=== PATIENT | male | born 1980 | race Caucasian/White ===

== ENCOUNTER 2019-12-18 17:33 | Emergency (ER) | payer MEDICAID, SELFPAY ==
[2019-12-18 18:00] VITALS: BP 163/94; PULSE 93; RESP 20; TEMP 37.1; O2SAT 98; BMI 32.1
--- NOTE | 2019-12-18 18:23 | HMH.EDUTC ---
[facility] [place] Clinical Impression: Poison melissa dermatitis Disposition: Home, Self-Care Condition on Discharge: Good Instructions: DI for Poison Melissa Allergy, Poison Melissa, Poison [place], Poison [place], Poisonous Plants: Melissa, [place], and [place]: Beware the Oils, Summertime Rashes: Poison Melissa, [place], and [place], Prednisone Additional Instructions: Cool compresses may help with itching and swelling Over the counter Benadryl may help with itching Over the counter calamine lotion on the area may help to dry up the lesions Start your steriod dose pack tomorrow as you was given SoluMedrol shot in the [facility] today Return if needed Straight to ER if any life threatening symptoms Prescriptions: methylPREDNISolone [Medrol 4mg tab] 4 mg PO DIRECTED #21 tab Prescription Printed Referrals: [facility] [Primary Care Provider] - As needed Time of Disposition: 18:41 Medical Decision Making - Jose M Inquiry Pt receiving controlled substance: No Jose M was queried for this patient: No Vital Signs: 12/18/19 18:00 Temperature 98.8 F Temperature Source Oral Pulse Rate [Left] 93 H Respiratory Rate 20 Blood Pressure [Right Arm] 163/94 H Blood Pressure Mean [Right Arm] 117 Blood Pressure Source [Right Arm] Automatic Cuff Blood Pressure Position [Right Arm] Sitting 02 Sat by Pulse Oximetry 98 Oxygen Delivery Method Room Air Orders (Tests/Meds): ED MEDICATIONS Discontinued Medications Generic Name Dose Route Start Last Admin Trade Name Dalia PRN Reason Stop Dose Admin Methylprednisolone Sodium Succinate 125 mg 12/18/19 18:23 Solu-Medrol 125mg/2ml Vial IM 12/18/19 18:24 ONCE ONE [facility] [place] H[place] - General Stated complaint: Rash on face Time Seen by Provider: 12/18/19 18:24 Mode of Arrival: Ambulatory Source of Information: Patient Limitations: No Limitations Description of Symptoms (Recalled from Triage Doc. by RN): Rash- Pt states that he has had a rash on the left side of his face and moving up. 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 and unsure if he may have got into poison melissa or not - Related Data Previous Rx's Medication Instructions Recorded Naproxen [Naprosyn 500mg tablet] 500 mg PO BID PRN #20 tab 10/09/17 methylPREDNISolone [Medrol 4mg 4 mg PO DIRECTED #21 tab 12/18/19 tab] Allergies Allergy/AdvReac Type Severity Reaction Status Date / Time Penicillins [PENICILLINS] Allergy Intermediate Verified 10/09/17 18:27 - Worker's Comp Is this a Worker's Comp case?: No Is this an [employer] Worker's Comp?: No Is this a [place] Worker's Comp?: No [facility] History - Hepatitis A Screen Drug use history?: No High risk sexual behaviors?: No History of sexually transmitted infection?: No Currently employed?: No Childcare worker?: No Do you have indoor plumbing?: Yes Do you have electricity?: Yes Attestation statement:: This patient has been screened for Hepatitis A risk factors. I have reviewed the patient's past medical history: Yes Medical History: Denies:: Arrhythmia, Coronary Artery Disease, Diabetes Mellitus Type 1, Diabetes Mellitus Type 2, Peripheral Vascular Disease, Pulmonary Embolism - Social History Smoking Status: Current every day smoker Tobacco Type: cigarettes # Packs/Day (cigarettes): 1 Alcohol Intake: never Occupational Status: other ROS Obtained: Yes All systems reviewed & no additional complaints, Yes Systems reviewed as appropriate & no additional complaints - Constitutional Constitutional: Reports system reviewed and no add
[2019-12-18 18:25] VITALS: BP 163/94; PULSE 93; RESP 20; TEMP 37.1; O2SAT 98
== END 2019-12-18 18:37 | disposition home or self-care (01) ==
PROVIDERS: Emergency Provider Nurse Practitioner
DX: L23.7 Allergic contact dermatitis due to plants, except food (principal); F17.210 Nicotine dependence, cigarettes, uncomplicated
CPT/HCPCS: 96372; 99201

== ENCOUNTER 2021-02-08 13:33 | Observation (INO) | payer OTHER, SELFPAY ==
[2021-02-08 13:33] VITALS: BP 149/99; PULSE 91; RESP 16; TEMP 37; O2SAT 98; BMI 34.5
--- NOTE | 2021-02-08 14:56 | HMH.EDUTC ---
[facility] [place] Dis[place] Clinical Impression: Cellulitis of foot Foot ulcer Qualifiers: Laterality: right Non-pressure ulcer stage: limited to breakdown of skin Qualified Code(s): L97.511 - Non-pressure chronic ulcer of other part of right foot limited to breakdown of skin Disposition: Admitted as Observation Condition on Discharge: Good Time of Disposition: 15:57 Medical Decision Making - Jose M Inquiry Pt receiving controlled substance: No Jose M was queried for this patient: No Vital Signs: 02/08/21 13:33 02/08/21 16:44 02/08/21 17:01 Temperature 98.6 F 98 F Temperature Source Oral Oral Pulse Rate 92 H Pulse Rate [Left Radial] 91 H 97 H Respiratory Rate 16 18 Blood Pressure 154/77 H Blood Pressure [Right Arm] 149/99 H 188/101 H Blood Pressure Mean 106 Blood Pressure Mean [Right Arm] 115 130 Blood Pressure Source [Right Arm] Automatic Cuff Blood Pressure Position [Right Arm] Sitting Sitting 02 Sat by Pulse Oximetry 98 98 96 Oxygen Delivery Method Room Air Room Air 02/08/21 19:53 02/08/21 20:20 02/08/21 20:25 Temperature 98.6 F Temperature Source Oral Pulse Rate 95 H 95 H Pulse Rate [Left Radial] Respiratory Rate 16 Blood Pressure 136/79 136/79 Blood Pressure [Right Arm] Blood Pressure Mean 103 Blood Pressure Mean [Right Arm] Blood Pressure Source [Right Arm] Automatic Cuff Blood Pressure Position [Right Arm] 02 Sat by Pulse Oximetry 96 Oxygen Delivery Method Vapotherm Room Air - Lab Data Lab Results 02/08/21 17:19: WBC 10.0, RBC 5.01, Hgb 14.6, Hct 44.3, MCV 88.3, MCH 29.2, MCHC 33.0, RDW 13.5, Plt Count 320, MPV 7.9, Neut % (Auto) 46.2, Lymph % (Auto) 40.7, [place] % (Auto) 4.9, Eos % (Auto) 6.9, Baso % (Auto) 1.2, Neut # (Auto) 4.6, Lymph # (Auto) 4.1, [place] # (Auto) 0.5, Eos # (Auto) 0.7 H, Baso # (Auto) 0.1 02/08/21 17:19: Sodium 139, Potassium 4.5, Chloride 102, Carbon Dioxide 30, Anion Gap 11.5, BUN 12, Creatinine 0.70, Estimated Creat Clear 216, Estimated GFR 125, Est GFR ( Amer) 151, Glucose 111 H, Calcium 9.2, Total Bilirubin 0.2, AST 39, ALT 31, Alkaline Phosphatase 105, C-Reactive Protein 4.8 H, Total Protein 7.5, Albumin 4.2, Globulin 3.3 H, Albumin/Globulin Ratio 1.3 02/08/21 17:19: SARS-CoV-2 (PCR) Not detected, Influenza A Untype (PCR) Not detected, Influenza Type B (PCR) Not detected 02/08/21 17:19: Lactate 0.9 02/08/21 17:19: Hemoglobin A1c 6.1 H 02/08/21 17:19: ESR 25 H Result diagrams: 02/08/21 17:19 02/08/21 17:19 Orders (Tests/Meds): ED MEDICATIONS Generic Name Dose Route Start Last Admin Trade Name Freq PRN Reason Stop Dose Admin Acetaminophen 650 mg 02/08/21 20:44 02/08/21 21:08 Acetaminophen 325mg Tab PO 03/10/21 20:43 650 mg Q4HP PRN Administration Fever or Mild Pain Meropenem 1 gm/ Sodium 100 mls @ 100 mls/hr 02/08/21 21:00 02/08/21 21:07 Chloride IV 02/22/21 20:59 100 mls/hr Q8H DMITRI Administration Sodium Chloride 1,000 mls @ 50 mls/hr 02/08/21 20:44 02/08/21 21:06 Sod Chlor 0.9% 1000ml Bag IV 03/10/21 20:43 50 mls/hr .Q20H DMITRI Administration Vancomycin/PEG/NADA/Lysine/Water 1.5 gm in 300 mls @ 150 mls/hr 02/09/21 04:00 Vancomycin 1.5gm/300ml (Peg) Premix IV 02/23/21 03:59 Q8H [facility] Miscellaneous 1 each 02/08/21 20:44 Vancomycin Consult Request * 03/10/21 17:29 CONSULT PHARMACY [facility] Non-Formulary Medication 1 each 02/08/21 21:00 Buprenorphine Hcl/Naloxone Hcl [Suboxone 8 Mg-2 Mg Sl Film] SL 03/10/21 20:59 BID DMITRI Ondansetron HCl 4 mg 02/08/21 20:44 Ondansetron 4mg/2ml Vial IV 03/10/21 20:43 Q8HP PRN Nausea Discontinued Medications Generic Name Dose Route Start Last Admin Trade Name Freq PRN Reason Stop Dose Admin Meropenem 1 gm/ Sodium 100 mls @ 100 mls/hr 02/08/21 17:30 Chloride IV 02/22/21 17:29 Q8H DMITRI Vancomycin HCl 2,000 mg/ 250 mls @ 125 mls/hr 02/08/21 17:45 02/08/21 17:57 Sodium Chloride IV
--- NOTE | 2021-02-08 15:09 | XR_ITS ---
PROCEDURE: XR FOOT RT MIN 3V CLINICAL INDICATION: GREAT TOE SWOLLEN COMPARISON: No exams were available for comparison FINDINGS: Lucency is present medial to the 1st interphalangeal joint and may be related to soft tissue defect or ulceration versus soft tissue gas. Bandage artifact is present at this area. There is minimal hallux valgus. No bony destructive process. The joint spaces are well-preserved. No significant degenerative/arthritic changes. No erosive changes evident. Other findings:None. IMPRESSION: Lucency medial to the 1st interphalangeal joint which could be related to soft tissue gas, soft tissue ulceration, or artifact. No evidence of osteomyelitis. Dictated by: Erwin Guerrero MD 02/08/2021 15:49 Erwin Guerrero MD in [place] 02/08/2021 15:49
--- NOTE | 2021-02-08 16:23 | PC.NURSE ---
Pt transferred to ER for further fu of foot wound
[2021-02-08 16:33] VITALS: BMI 33.5
--- NOTE | 2021-02-08 16:40 | HMH.EDGENADL ---
ED Disposition Clinical Impression: Cellulitis of foot Foot ulcer Qualifiers: Laterality: right Non-pressure ulcer stage: limited to breakdown of skin Qualified Code(s): L97.511 - Non-pressure chronic ulcer of other part of right foot limited to breakdown of skin Disposition: Admitted as Observation Condition on Discharge: Good - Critical Care Critical Care Time: No Attestation: On 02/08/21, the high probability of a clinically significant, sudden or life threatening deterioration of the following system(s) required my full and direct attention, intervention and personal management. The time I documented below is in addition to time spent performing reported procedures but includes the following listed in this critical care notation. Medical Decision Making - Jose M Inquiry Pt receiving controlled substance: No Vital Signs: 02/08/21 13:33 02/08/21 16:44 02/08/21 19:53 Temperature 98.6 F 98 F Temperature Source Oral Oral Oral Pulse Rate [Left Radial] 91 H 97 H Respiratory Rate 16 18 Blood Pressure [Right Arm] 149/99 H 188/101 H Blood Pressure Mean [Right Arm] 115 130 Blood Pressure Source [Right Arm] Automatic Cuff Automatic Cuff Blood Pressure Position [Right Arm] Sitting Sitting 02 Sat by Pulse Oximetry 98 98 Oxygen Delivery Method Room Air Room Air Vapotherm - Lab Data Lab Results 02/08/21 17:19: WBC 10.0, RBC 5.01, Hgb 14.6, Hct 44.3, MCV 88.3, MCH 29.2, MCHC 33.0, RDW 13.5, Plt Count 320, MPV 7.9, Neut % (Auto) 46.2, Lymph % (Auto) 40.7, [place] % (Auto) 4.9, Eos % (Auto) 6.9, Baso % (Auto) 1.2, Neut # (Auto) 4.6, Lymph # (Auto) 4.1, [place] # (Auto) 0.5, Eos # (Auto) 0.7 H, Baso # (Auto) 0.1 02/08/21 17:19: Sodium 139, Potassium 4.5, Chloride 102, Carbon Dioxide 30, Anion Gap 11.5, BUN 12, Creatinine 0.70, Estimated Creat Clear 216, Estimated GFR 125, Est GFR ( Amer) 151, Glucose 111 H, Calcium 9.2, Total Bilirubin 0.2, AST 39, ALT 31, Alkaline Phosphatase 105, C-Reactive Protein 4.8 H, Total Protein 7.5, Albumin 4.2, Globulin 3.3 H, Albumin/Globulin Ratio 1.3 02/08/21 17:19: SARS-CoV-2 (PCR) Not detected, Influenza A Untype (PCR) Not detected, Influenza Type B (PCR) Not detected 02/08/21 17:19: Lactate 0.9 02/08/21 17:19: Hemoglobin A1c 6.1 H 02/08/21 17:19: ESR 25 H Result diagrams: 02/08/21 17:19 02/08/21 17:19 Orders (Tests/Meds): ED MEDICATIONS Generic Name Dose Route Start Last Admin Trade Name Freq PRN Reason Stop Dose Admin Meropenem 1 gm/ Sodium 100 mls @ 100 mls/hr 02/08/21 17:30 Chloride IV 02/22/21 17:29 Q8H DMITRI Miscellaneous 1 each 02/08/21 17:30 02/08/21 19:27 Vancomycin Consult Request * 03/10/21 17:29 1 each CONSULT PHARMACY DMITRI Administration Discontinued Medications Generic Name Dose Route Start Last Admin Trade Name Freq PRN Reason Stop Dose Admin Vancomycin HCl 2,000 mg/ 250 mls @ 125 mls/hr 02/08/21 17:45 02/08/21 17:57 Sodium Chloride IV 02/08/21 19:44 125 mls/hr ONCE ONE Administration Iopamidol 75 ml 02/08/21 19:22 02/08/21 19:23 Iopamidol-370 (76%);100ml Bottle IV 02/08/21 19:23 75 ml ONCE ONE Administration Sodium Chloride 10 ml 02/08/21 19:22 02/08/21 19:23 Sodium Chloride 0.9% 10ml Syr (Rad Only) IV 02/08/21 19:23 10 ml ONCE ONE Administration ORDERS Category Date Time Status Consult to Podiatry [CONS] Routine Cons 02/08/21 17:31 Active Blood Culture Stat Micro 02/08/21 17:19 Received Wound Culture and Gram Stain Routine Micro 02/08/21 16:44 Received - CT Data CT Scan: Other (right foot) Time Received: 19:[address] Reviewed: Yes: I have viewed the radiologist's interpretation Findings Narrative: PROCEDURE INFORMATION: Exam: CT Right Lower Extremity Without and With Contrast, Foot Exam date and time: 02/08/2021 6:36 PM Age: 40 years old Clinical indication: Other: R/O abscess, gas, osteomyelitis TECHNIQUE: Imaging protocol: CT of the Right lower extremity witho
[2021-02-08 16:44] VITALS: BP 188/101; PULSE 97; RESP 18; TEMP 36.6; O2SAT 98; BMI 33.5
[2021-02-08 17:01] VITALS: BP 154/77; PULSE 92; O2SAT 96
[2021-02-08 17:37] LABS: Coronavirus 19, PCR Not Detected (NotDetected); Influenza A, PCR Not Detected (NotDetected); Influenza B, PCR Not Detected (NotDetected)
[2021-02-08 17:38] LABS: Basophils # 0.1 K/mm3 (0-0.2); Basophils % 1.2 % (0.1-2.0); Eosinophils # 0.7 K/mm3 (0.0-0.4); Eosinophils % 6.9 % (0.1-12.0); Hematocrit 44.3 % (42.0-52.0); Hemoglobin 14.6 g/dL (14.1-18.0); Lymphocytes # 4.1 K/mm3 (0.7-4.5); Lymphocytes % 40.7 % (10-50); Mean Corpuscular Hemoglobin 29.2 pg (27.0-31.2); Mean Corpuscular Volume 88.3 fl (80-94); Mean Platelet Volume 7.9 fl (7.4-10.4); Monocytes # 0.5 K/mm3 (0.1-1.0); Monocytes % 4.9 % (1.7-9.3); Neutrophils # 4.6 K/mm3 (1.8-7.8); Neutrophils % 46.2 % (37.0-80.0); Platelet Count 320 K/mm3 (142-424); Red Blood Count 5.01 M/mm3 (4.60-6.20); Red Cell Distribution Width 13.5 % (11.5-17.5)
[2021-02-08 17:39] LABS: Chloride 102 mmol/L (98-107); Potassium 4.5 mmoL/L (3.5-5.1); Sodium 139 mmol/L (136-145)
[2021-02-08 17:42] LABS: Alanine Aminotransferase 31 U/L (12-78); Albumin Level 4.2 g/dl (3.5-5.0); Albumin/Globulin Ratio 1.3 (1.1-1.8); Alkaline Phosphatase 105 U/L (38-126); Anion Gap 11.5 mEq/L (5-15); Aspartate Amino Transferase 39 U/L (17-59); Bilirubin,Total 0.2 mg/dl (0.2-1.3); Blood Urea Nitrogen 12 mg/dl (9-20); Calcium 9.2 mg/dl (8.4-10.2); Carbon Dioxide 30 mmol/L (22.0-30.0); Creatinine Clearance Estimated 216 mL/min (50-200); Estimated Glomerular Filt Rate 125 ml/min (>60); GFR (African American) 151 ML/MIN (>60); Globulin 3.3 g/dL (1.3-3.2); Glucose 111 mg/dl (74-100); Total Protein,Serum 7.5 g/dl (6.3-8.2)
[2021-02-08 17:43] LABS: Lactic Acid 0.9 mmol/L (0.7-2.1)
[2021-02-08 17:48] LABS: C-Reactive Protein 4.8 mg/L (0-4)
[2021-02-08 17:54] LABS: Hemoglobin A1C 6.1 % (4.0-6.0)
--- NOTE | 2021-02-08 18:20 | HMH.ORTHOCON ---
*Admission Date: 02/08/21 *Reason for consult:: Right foot ulcer, cellulitis *History of present illness: Patient was seen and evaluated by myself in ER. 40-year-old male who admits to not seeing a doctor in over 6 years. Patient states that a month ago he got his feet wet while walking and developed a blister in the area of his right great toe. The skin broke down and formed an open wound. Reports that his has been treating with Neosporin and bandages since then. Now his right great toe is red for the past couple of days. No fever. He does have pain in the area but also says that his feet feel numb for the past couple of weeks. No known history of diabetes, but he does not have a primary care provider and does not see a physician. He is on no medications. Seen in the urgent treatment center and had an x-ray which showed a lucency medial to his right first MTP joint that could be soft tissue air, soft tissue ulceration, or artifact. (Dr. Chandler's office was contacted by urgent treatment center provider and her ELEMENTARY TEACHER advised that the patient be sent to the emergency department for blood work, IV antibiotics, possible admission, possible further imaging.) After exam, discussed with ER doctor, recommend admission per service team, I will consult. I recommend CT to evaluate for abscess, gas and osteomyelitis. Discussed with patient he may need right hallux I&D, wound debridement or hallux amputation. Plan for NPO after midnight. [facility] History I have reviewed the patient's past medical history: Yes Medical History: Denies:: Arrhythmia, Cancer, Coronary Artery Disease, Diabetes Mellitus Type 1, Diabetes Mellitus Type 2, Internal Pacemaker, MRSA, Peripheral Vascular Disease, Pulmonary Embolism *Have you ever received a pneumonia vaccine?: No *Have you received a flu vaccine this season?: No Other Surgeries: No: Pacemaker Amputation: No Fractures: No - *Social History Smoking Status: Current every day smoker Tobacco Type: cigarettes, smokeless tobacco # Packs/Day (cigarettes): 1 Alcohol Intake: never *Occupational Status:: employed *Travel in the last 8 weeks: None Family Hx:: Hypertension Review of Systems - Review of Systems Review of systems:: pertinent systems reviewed and negative unless documented below - Constitutional Denies chills - Eyes Denies blind spots - ENT Denies abnormal hearing - *Cardiovascular Denies chest pain, Denies shortness of breath - *Respiratory Denies shortness of breath - *Gastrointestinal Denies abdominal pain - *Genitourinary Denies difficulty urinating - *Musculoskeletal Reports joint swelling (right foot), Denies abnormal walking - Integumentary/Breasts Reports skin ulcer (right hallux) - *Neurologic Reports numbness (Feet bilaterally) Meds Home Medications Medication Instructions Recorded Confirmed Type Buprenorphine HCl/Naloxone HCl 1 each SL BID 02/08/21 02/08/21 History [Suboxone 8 mg-2 mg Sl Film] Escitalopram Oxalate [Lexapro] 20 mg PO DAILY 02/08/21 02/08/21 History ciprofloxacin HCl 500 mg tablet 500 mg PO BID 14 Days #28 tab 02/09/21 Rx clindamycin HCl 300 mg capsule 300 mg PO TID 14 Days #42 cap 02/09/21 Rx Allergies Allergy/AdvReac Type Severity Reaction Status Date / Time Penicillins [PENICILLINS] Allergy Intermediate Verified 02/08/21 20:58 Exam Vital signs and Labs for Last 24 Hours: Temp Pulse Resp BP Pulse Ox 98 F 97 H 18 188/101 H 98 02/08/21 16:44 02/08/21 16:44 02/08/21 16:44 02/08/21 16:44 02/08/21 16:44 Laboratory Results - last 24 hr 02/08/21 17:19: WBC 10.0, RBC 5.01, Hgb 14.6, Hct 44.3, MCV 88.3, MCH 29.2, MCHC 33.0, RDW 13.5, Plt Count 320, MPV 7.9, Neut % (Auto) 46.2, Lymph % (Auto) 40.7, [place] % (Auto) 4.9, Eos % (Auto) 6.9, Baso % (Auto) 1.2, Neut # (Auto) 4.6, Lymph # (Auto) 4.1, [place] # (Auto) 0.5, Eos # (Auto) 0.7 H, Baso # (Auto) 0.1 02/08/21 17:19: Sodium 139, Potassium 4.5, Chloride 102, Carbon Dioxide 30,
--- NOTE | 2021-02-08 18:36 | CT_ITS ---
PROCEDURE INFORMATION: Exam: CT Right Lower Extremity Without and With Contrast, Foot Exam date and time: 02/08/2021 6:36 PM Age: 40 years old Clinical indication: Other: R/O abscess, gas, osteomyelitis TECHNIQUE: Imaging protocol: CT of the Right lower extremity without and with intravenous contrast was performed. Exam focused on the foot. Radiation optimization: All CT scans at this facility use at least one of these dose optimization techniques: automated exposure control; mA and/or kV adjustment per patient size (includes targeted exams where dose is matched to clinical indication); or iterative reconstruction. Contrast material: ISOVUE; Contrast volume: 75 ml; Contrast route: IV; COMPARISON: CR XR FOOT RT MIN 3V 02/08/2021 3:19 PM FINDINGS: Bones/joints: Osseous anatomic alignment is well preserved. No acutely displaced fracture or dislocation. Joint spaces are well preserved. Soft tissues: 1.3 cm by 1 cm skin ulcer at the plantar aspect of the greater toe. The ulcer only involves the subcutaneous tissues/subcutaneous fat and does not extend into the underlying bone. Soft tissue swelling throughout the greater toe. Subcutaneous edema/swelling also appreciated throughout the foot. No soft tissue fluid collections. No soft tissue gas. IMPRESSION: 1. Skin ulcer with surrounding cellulitis at the plantar aspect of the greater toe. 2. No evidence of soft tissue/subcutaneous abscesses or necrotizing soft tissue infection. 3. No definitive evidence for osteomyelitis in this examination.
--- NOTE | 2021-02-08 18:47 | XR_ITS ---
PROCEDURE INFORMATION: Exam: XR Chest Exam date and time: 02/08/2021 6:47 PM Age: 40 years old Clinical indication: Pre-operative exam; Cardiovascular screening and respiratory screening exam; Additional info: Surgery clearance TECHNIQUE: Imaging protocol: XR of the chest. Views: 1 view. COMPARISON: CR CXR2V XR chest 2V 10/09/2017 7:14 PM FINDINGS: Airway: Patent Lungs: Unremarkable. No consolidation. Pleural spaces: Unremarkable. No pleural effusion. No pneumothorax. Heart/Mediastinum: Unremarkable. No cardiomegaly. Bones/joints: No acute skeletal abnormality or aggressive osseous lesion. IMPRESSION: No acute findings.
[2021-02-08 19:23] LABS: Erythrocyte Sedimentation Rate 25 mm/hr (0-15)
[2021-02-08 19:52] VITALS: BMI 34.7
[2021-02-08 20:20] VITALS: BP 136/79; PULSE 95; O2SAT 96
[2021-02-08 20:25] VITALS: BP 136/79; PULSE 95; RESP 16; TEMP 37; O2SAT 96
--- NOTE | 2021-02-08 20:38 | PC.NURSE ---
patient up to floor @ this time
[2021-02-08 21:04] VITALS: BP 168/96; PULSE 95; RESP 18; TEMP 36.6; O2SAT 96
--- NOTE | 2021-02-09 15:49 | HMH.HPDC ---
General - General Admission date:: 02/08/21 Discharge date: 02/08/21 *Admission Date: 02/08/21 *Chief complaint: right foot wound *History of present illness: Sent from the urgent treatment center for a wound on his right foot. Patient states that a month ago he got his feet wet while walking and developed a blister in the area of his right great toe. The skin broke down and formed an open wound which she has been treating with Neosporin and bandages since then. Now his right great toe is red for the past couple of days. No fever. He does have pain in the area but also says that his feet feel numb for the past couple of weeks. No known history of diabetes, but he does not have a primary care provider and does not see a physician. He is on no medications. Seen in the urgent treatment center and had an x-ray which showed a lucency medial to his right first MTP joint that could be soft tissue air, soft tissue ulceration, or artifact. Dr. Chandler was contacted by urgent treatment center provider and she advised that the patient be sent to the emergency department for blood work, IV antibiotics, possible admission, possible further imaging. [facility] History I have reviewed the patient's past medical history: Yes Medical History: Denies:: Arrhythmia, Cancer, Coronary Artery Disease, Diabetes Mellitus Type 1, Diabetes Mellitus Type 2, Internal Pacemaker, MRSA, Peripheral Vascular Disease, Pulmonary Embolism *Have you ever received a pneumonia vaccine?: No *Have you received a flu vaccine this season?: No Laterality Cases: Bilateral: Tonsillectomy Other Surgeries: Yes: Cholecystectomy. No: Pacemaker Amputation: No Fractures: No - *Social History Smoking Status: Current every day smoker Tobacco Type: cigarettes, smokeless tobacco # Packs/Day (cigarettes): 1 Alcohol Intake: former Last Used Substance: unknown *Occupational Status:: unemployed *Travel in the last 8 weeks: None Family Hx:: No significant family history Review of Systems - Review of Systems Review of systems:: unable to obtain - *Neurologic Reports numbness (Feet bilaterally), Denies abnormal walking, Denies abnormal hearing Exam Vital signs and Labs for Last 24 Hours: Temp Pulse Resp BP Pulse Ox 97.9 F 95 H 18 168/96 H 96 02/08/21 21:04 02/08/21 21:04 02/08/21 21:04 02/08/21 21:04 02/08/21 21:04 Laboratory Results - last 24 hr 02/08/21 17:19: WBC 10.0, RBC 5.01, Hgb 14.6, Hct 44.3, MCV 88.3, MCH 29.2, MCHC 33.0, RDW 13.5, Plt Count 320, MPV 7.9, Neut % (Auto) 46.2, Lymph % (Auto) 40.7, [place] % (Auto) 4.9, Eos % (Auto) 6.9, Baso % (Auto) 1.2, Neut # (Auto) 4.6, Lymph # (Auto) 4.1, [place] # (Auto) 0.5, Eos # (Auto) 0.7 H, Baso # (Auto) 0.1 02/08/21 17:19: Sodium 139, Potassium 4.5, Chloride 102, Carbon Dioxide 30, Anion Gap 11.5, BUN 12, Creatinine 0.70, Estimated Creat Clear 216, Estimated GFR 125, Est GFR ( Amer) 151, Glucose 111 H, Calcium 9.2, Total Bilirubin 0.2, AST 39, ALT 31, Alkaline Phosphatase 105, C-Reactive Protein 4.8 H, Total Protein 7.5, Albumin 4.2, Globulin 3.3 H, Albumin/Globulin Ratio 1.3 02/08/21 17:19: SARS-CoV-2 (PCR) Not detected, Influenza A Untype (PCR) Not detected, Influenza Type B (PCR) Not detected 02/08/21 17:19: Lactate 0.9 02/08/21 17:19: Hemoglobin A1c 6.1 H 02/08/21 17:19: ESR 25 H I & O for Last 24 hours: Intake & Output 02/07/21 02/08/21 02/09/21 02/10/21 11:59 11:59 11:59 11:59 Weight 248 lb 7 oz Microbiology Reports for the Last 24 Hours: Microbiology 02/08/21 16:40 Toe,Right Great Gram Stain - Final Narrative: Unable to examine patient as he left AMA before anyone could see him Hospital Course Hospital Course: The patient had a CT of the foot showing a skin ulcer with surrounding cellulitis at the plantar aspect of the greater toe. There was no evidence of soft tissue/subcutaneous abscess or necrotizing soft tissue infection. There was no definitive evidence for osteomyeliti
== END 2021-02-08 22:35 | disposition left against medical advice (07) ==
LOC: UTC 16:14 → ER 16:23 → 2ND 19:50
PROVIDERS: Podiatrist; Admitting Provider Family Medicine; Emergency Provider Emergency Medicine; Visit Provider Family Medicine
DX: L97.511 Non-pressure chronic ulcer of other part of right foot limited to breakdown of skin (principal); Z20.822 Contact with and (suspected) exposure to COVID-19
CPT/HCPCS: 71045; 73630; 73702; 80053; 83036; 83605; 85025; 85651; 86140; 87040; 87070; 87077; 87186; 87205; 93005; 96365; 99283; C9803; G0378; J2185; J3370; Q9967; U0003; U0005

== ENCOUNTER 2021-04-06 14:42 | Emergency (ER) | payer OTHER, SELFPAY ==
[2021-04-06 14:43] VITALS: BP 139/94; PULSE 95; RESP 16; TEMP 36.8; O2SAT 96; BMI 33.5
--- NOTE | 2021-04-06 15:16 | XR_ITS ---
FINAL REPORT CLINICAL HISTORY: ulcer great toe FINDINGS: This exam was performed on April 06, 2021 and submitted for interpretation on April 25, 2021. There is no acute fracture or dislocation. The joint spaces are intact. There is diffuse soft tissue swelling about the 1st digit. There is localized subcutaneous emphysema in the medial 1st digit consist with underlying soft tissue ulceration. There is no foreign body, bony erosion or periosteal reaction. IMPRESSION: Soft tissue ulceration of the 1st digit without foreign body, bony erosion or periosteal reaction. Reviewed, Interpreted and Dictated by Andrea Henley MD Transcribed by Yuniel Garcia Authenticated by Andrea Henley MD on 04/25/2021 03:37:15 PM [facility]
--- NOTE | 2021-04-06 15:39 | HMH.EDGENADL ---
ED Disposition Clinical Impression: Cellulitis of foot Skin ulcer of right great toe Qualifiers: Non-pressure ulcer stage: limited to breakdown of skin Qualified Code(s): L97.511 - Non-pressure chronic ulcer of other part of right foot limited to breakdown of skin Disposition: Home, Self-Care Condition on Discharge: Good Instructions: Cellulitis Prescriptions: Sulfamethoxazole/Trimethoprim [Bactrim DS tablet] 1 each PO BID #14 tab Transmission Status: [facility]ending to [facility] cephALEXin [Cephalexin 500mg Tab] 500 mg PO QID #28 tab Transmission Status: Pending to [facility] Referrals: Provider,Referral, [Primary Care Provider] - - Critical Care Critical Care Time: No Attestation: On 04/06/21, the high probability of a clinically significant, sudden or life threatening deterioration of the following system(s) required my full and direct attention, intervention and personal management. The time I documented below is in addition to time spent performing reported procedures but includes the following listed in this critical care notation. Medical Decision Making - Medical Records Medical records reviewed: Yes: I reviewed the patient's medical records. - Jose M Inquiry Pt receiving controlled substance: No Vital Signs: 04/06/21 14:43 Temperature 98.2 F Temperature Source Oral Pulse Rate [Right] 95 H Respiratory Rate 16 Blood Pressure [Right Arm] 139/94 H Blood Pressure Mean [Right Arm] 109 Blood Pressure Source [Right Arm] Automatic Cuff Blood Pressure Position [Right Arm] Sitting 02 Sat by Pulse Oximetry 96 Oxygen Delivery Method Room Air - Lab Data Lab Results 04/06/21 16:50: WBC 9.1, RBC 5.32, Hgb 15.6, Hct 46.1, MCV 86.5, MCH 29.3, MCHC 33.8, RDW 14.0, Plt Count 306, MPV 7.8, Neut % (Auto) 44.6, Lymph % (Auto) 41.0, [place] % (Auto) 6.3, Eos % (Auto) 6.2, Baso % (Auto) 1.9, Neut # (Auto) 4.1, Lymph # (Auto) 3.8, [place] # (Auto) 0.6, Eos # (Auto) 0.6 H, Baso # (Auto) 0.2 04/06/21 16:50: Sodium 138, Potassium 4.0, Chloride 98, Carbon Dioxide 31 H, Anion Gap 13.0, BUN 12, Creatinine 0.90, Estimated Creat Clear 166, Estimated GFR 93, Est GFR ( Amer) 113, Glucose 126 H, Calcium 9.3, Total Bilirubin 0.5, AST 44, ALT 51, Alkaline Phosphatase 83, Total Protein 7.8, Albumin 4.4, Globulin 3.4 H, Albumin/Globulin Ratio 1.3 Result diagrams: 04/06/21 16:50 04/06/21 16:50 Orders (Tests/Meds): ED MEDICATIONS Discontinued Medications Generic Name Dose Route Start Last Admin Trade Name Freq PRN Reason Stop Dose Admin Hydrocodone Bitart/Acetaminophen 1 tab 04/06/21 15:16 04/06/21 15:35 Apap/Hydrocodone 325mg/7.5mg Tab PO 04/06/21 15:17 1 tab ONCE ONE Administration ORDERS Category Date Time Status XR foot RT min 3V Stat Exams 04/06/21 15:16 Taken - Radiology Data #1 Image(s): Foot/Toes Image Reviewed: Yes I reviewed the patient's radiology results, Yes I reviewed the patient's radiology image Chronic changes, no significant findings for osteomyelitis. - Reevaluation(s) Time: 17:48 Reevaluation #1: On reevaluation, patient's pain is significantly improved. He does have findings consistent with a chronic ulcer with some cellulitis. There is no evidence of sepsis. I did explain to the patient that I would like him to be evaluated by podiatry. Patient states that he cannot wait any longer. I did explain to him that he needs to be enrolled in wound care and follow-up with podiatry. He verbalized understanding. Medical Decision Narrative: 41-year-old male with an ulcer on the bottom of his right great toe. This does appear to be a chronic nonhealing pressure ulcer. There may be a small amount of erythema surrounding it suggestive of cellulitis. Patient has yet to follow-up with his systems developer or complete his medical management. There is no evidence of sepsis or further stenting infection at this time. Work-up initiated. General Adul
--- NOTE | 2021-04-06 16:16 | PC.NURSE ---
PT going to rad
--- NOTE | 2021-04-06 16:40 | PC.NURSE ---
lab at bedside
[2021-04-06 17:17] LABS: Basophils # 0.2 K/mm3 (0-0.2); Basophils % 1.9 % (0.1-2.0); Eosinophils # 0.6 K/mm3 (0.0-0.4); Eosinophils % 6.2 % (0.1-12.0); Hematocrit 46.1 % (42.0-52.0); Hemoglobin 15.6 g/dL (14.1-18.0); Lymphocytes # 3.8 K/mm3 (0.7-4.5); Mean Corpuscular HGB Conc 33.8 g/dL (31.8-35.4); Mean Corpuscular Hemoglobin 29.3 pg (27.0-31.2); Mean Corpuscular Volume 86.5 fl (80-94); Mean Platelet Volume 7.8 fl (7.4-10.4); Monocytes # 0.6 K/mm3 (0.1-1.0); Monocytes % 6.3 % (1.7-9.3); Neutrophils # 4.1 K/mm3 (1.8-7.8); Neutrophils % 44.6 % (37.0-80.0); Platelet Count 306 K/mm3 (142-424); Red Blood Count 5.32 M/mm3 (4.60-6.20); White Blood Count 9.1 K/mm3 (4.8-10.8)
[2021-04-06 17:21] LABS: Chloride 98 mmol/L (98-107)
[2021-04-06 17:22] LABS: Sodium 138 mmol/L (136-145)
[2021-04-06 17:24] LABS: Alanine Aminotransferase 51 U/L (12-78); Alkaline Phosphatase 83 U/L (38-126); Aspartate Amino Transferase 44 U/L (17-59); Bilirubin,Total 0.5 mg/dl (0.2-1.3); Blood Urea Nitrogen 12 mg/dl (9-20); Creatinine Clearance Estimated 166 mL/min (50-200); Estimated Glomerular Filt Rate 93 ml/min (>60); GFR (African American) 113 ML/MIN (>60)
[2021-04-06 17:25] LABS: Albumin Level 4.4 g/dl (3.5-5.0); Albumin/Globulin Ratio 1.3 (1.1-1.8); Calcium 9.3 mg/dl (8.4-10.2); Carbon Dioxide 31 mmol/L (22.0-30.0); Globulin 3.4 g/dL (1.3-3.2); Glucose 126 mg/dl (74-100); Total Protein,Serum 7.8 g/dl (6.3-8.2)
[2021-04-06 18:10] VITALS: BP 134/94; PULSE 95; RESP 16; TEMP 36.8; O2SAT 96
== END 2021-04-06 18:10 | disposition home or self-care (01) ==
PROVIDERS: Emergency Provider Emergency Medicine
DX: L03.115 Cellulitis of right lower limb (principal); L97.511 Non-pressure chronic ulcer of other part of right foot limited to breakdown of skin; F17.210 Nicotine dependence, cigarettes, uncomplicated; Z88.0 Allergy status to penicillin
CPT/HCPCS: 36415; 73630; 80053; 85025; 99282

== ENCOUNTER → 2021-05-27 15:54 | Outpatient (CLI) | payer OTHER, SELFPAY ==
--- NOTE | 2021-05-27 16:59 | MR_ITS ---
PROCEDURE INFORMATION: Exam: MR Right Lower Extremity Other Than Joint Without and With Contrast; Foot Exam date and time: 05/27/2021 4:59 PM Age: 41 years old Clinical indication: Pain; Foot; Right; Additional info: Non healing ulcer. Ulcer on plantar surface of big toe [id number]. Swelling goes into ankle. Pain in arch. 23ml prohance given. TECHNIQUE: Imaging protocol: MR of the Right lower extremity without and with intravenous contrast. Exam focused on the foot. Contrast material: PROHANCE; Contrast volume: 23 ml; Contrast route: IV; COMPARISON: CT FOOT RT WO/W CON 02/08/2021 6:37 PM FINDINGS: Bones/joints: No acute fracture. No dislocation. Mild confluent low T1 signal within tuft of first distal phalanx. Minimal patchy low T1 signal within shaft/base of first distal phalanx. Diffuse high T2 signal throughout first distal phalanx. Soft tissues: Ulceration along first digit. [id number] reticular high T2 signal within subcutaneous tissues. No discrete peripherally enhancing fluid collection. IMPRESSION: Cellulitis. Osteomyelitis of first distal phalanx.
[2021-05-27 18:07] LABS: Blood Urea Nitrogen 14 mg/dl (9-20); Estimated Glomerular Filt Rate 124 ml/min (>60); GFR (African American) 150 ML/MIN (>60)
== END ==
PROVIDERS: Visit Provider Podiatrist
DX: L03.115 Cellulitis of right lower limb (principal); L97.519 Non-pressure chronic ulcer of other part of right foot with unspecified severity
CPT/HCPCS: 36415; 73720; 82565; 84520; A9576

== ENCOUNTER 2021-07-12 02:14 | Inpatient (IN) | payer OTHER, SELFPAY ==
[2021-07-12] VITALS (22 sets, daily range): BP systolic 109–153; BP diastolic 55–95; PULSE 77–106; RESP 16–20; TEMP 36.3–43; O2SAT 94–99; BMI 33.5; BMI 33.3
--- NOTE | 2021-07-12 02:33 | CT_ITS ---
PROCEDURE INFORMATION: Exam: CT Right Lower Extremity Without and With Contrast, Foot Exam date and time: 07/12/2021 2:55 AM Age: 41 years old Clinical indication: Toes; Right; Patient HX: Pain x4 months, patient being seen by foot/ankle surgeon; Additional info: Pain right foot 1st digit TECHNIQUE: Imaging protocol: CT of the Right lower extremity without and with intravenous contrast was performed. Exam focused on the foot. Radiation optimization: All CT scans at this facility use at least one of these dose optimization techniques: automated exposure control; mA and/or kV adjustment per patient size (includes targeted exams where dose is matched to clinical indication); or iterative reconstruction. Contrast material: ISOVUE; Contrast volume: 120 ml; Contrast route: IV; COMPARISON: MR FOOT RT WO/W CON 05/27/2021 5:21 PM FINDINGS: Bones/joints: There is some bony destruction involving the distal phalanx of the great toe consistent with the patient's history of known osteomyelitis. Soft tissues: There is diffuse subcutaneous edema involving the great toe. A discrete fluid collection is not identified. IMPRESSION: Bony destruction with cortical disruption of the distal phalanx of the great toe consistent with osteomyelitis. Diffuse cellulitis is seen throughout the great toe. No abscess is identified.
[2021-07-12 02:53] LABS: Basophils # 0.2 K/mm3 (0-0.2); Basophils % 1.2 % (0.1-2.0); Eosinophils # 0.7 K/mm3 (0.0-0.4); Eosinophils % 5.3 % (0.1-12.0); Hematocrit 38.6 % (42.0-52.0); Hemoglobin 12.8 g/dL (14.1-18.0); Lymphocytes # 3.4 K/mm3 (0.7-4.5); Mean Corpuscular HGB Conc 33.1 g/dL (31.8-35.4); Mean Corpuscular Volume 87.6 fl (80-94); Mean Platelet Volume 7.7 fl (7.4-10.4); Monocytes % 7.7 % (1.7-9.3); Neutrophils # 7.4 K/mm3 (1.8-7.8); Neutrophils % 58.8 % (37.0-80.0); Platelet Count 390 K/mm3 (142-424); Red Cell Distribution Width 13.4 % (11.5-17.5); White Blood Count 12.6 K/mm3 (4.8-10.8)
[2021-07-12 03:04] LABS: Alanine Aminotransferase 23 U/L (12-78); Albumin Level 3.8 g/dl (3.5-5.0); Alkaline Phosphatase 109 U/L (38-126); Anion Gap 7.5 mEq/L (5-15); Aspartate Amino Transferase 22 U/L (17-59); Bilirubin,Total 0.4 mg/dl (0.2-1.3); Blood Urea Nitrogen 12 mg/dl (9-20); Carbon Dioxide 34 mmol/L (22.0-30.0); Chloride 98 mmol/L (98-107); Creatinine Clearance Estimated 214 mL/min (50-200); Estimated Glomerular Filt Rate 124 ml/min (>60); GFR (African American) 150 ML/MIN (>60); Globulin 3.7 g/dL (1.3-3.2); Glucose 131 mg/dl (74-100); Potassium 3.5 mmoL/L (3.5-5.1); Sodium 136 mmol/L (136-145); Total Protein,Serum 7.5 g/dl (6.3-8.2)
[2021-07-12 03:05] LABS: Lactic Acid 1.1 mmol/L (0.7-2.1)
[2021-07-12 03:23] LABS: Procalcitonin 0.479 ng/mL (0.0-2.0)
[2021-07-12 03:26] LABS: Erythrocyte Sedimentation Rate > 140 mm/hr (0-15)
--- NOTE | 2021-07-12 03:26 | PC.NURSE ---
RADIOLOGY AWAITING BUN/CREATININE RESULTS. LABS HAVE RESULTED AND ARE WNL - RADIOLOGY AT BEDSIDE TO TRANSPORT TO CT.
--- NOTE | 2021-07-12 04:33 | HMH.EDGENADL ---
ED Disposition Clinical Impression: SIRS (systemic inflammatory response syndrome), Tobacco use, Obesity (BMI 30-39.9) Osteomyelitis Qualifiers: Osteomyelitis type: unspecified type Osteomyelitis location: other site Qualified Code(s): M86.9 - Osteomyelitis, unspecified Disposition: Admitted As Inpatient Condition on Discharge: Serious Referrals: Reagan Arshad [Primary Care Provider] - - Critical Care Critical Care Time: No Attestation: On 07/12/21, the high probability of a clinically significant, sudden or life threatening deterioration of the following system(s) required my full and direct attention, intervention and personal management. The time I documented below is in addition to time spent performing reported procedures but includes the following listed in this critical care notation. Medical Decision Making - Medical Records Medical records reviewed: Yes: I reviewed the patient's medical records. - Jose M Inquiry Pt receiving controlled substance: No Vital Signs: 07/12/21 02:16 Temperature 98.5 F Temperature Source Oral Pulse Rate [Right] 106 H Respiratory Rate 20 Blood Pressure [Right Arm] 146/76 H Blood Pressure Mean [Right Arm] 99 02 Sat by Pulse Oximetry 98 - Lab Data Lab results reviewed: Yes: I reviewed the patient's lab results. Lab Results 07/12/21 02:43: WBC 12.6 H, RBC 4.40 L, Hgb 12.8 L, Hct 38.6 L, MCV 87.6, MCH 29.0, MCHC 33.1, RDW 13.4, Plt Count 390, MPV 7.7, Neut % (Auto) 58.8, Lymph % (Auto) 27.0, [place] % (Auto) 7.7, Eos % (Auto) 5.3, Baso % (Auto) 1.2, Neut # (Auto) 7.4, Lymph # (Auto) 3.4, [place] # (Auto) 1.0, Eos # (Auto) 0.7 H, Baso # (Auto) 0.2, ESR > 140 H 07/12/21 02:43: Sodium 136, Potassium 3.5, Chloride 98, Carbon Dioxide 34 H, Anion Gap 7.5, BUN 12, Creatinine 0.70, Estimated Creat Clear 214, Estimated GFR 124, Est GFR ( Amer) 150, Glucose 131 H, Calcium 9.0, Total Bilirubin 0.4, AST 22, ALT 23, Alkaline Phosphatase 109, C-Reactive Protein 142.0 H, Total Protein 7.5, Albumin 3.8, Globulin 3.7 H, Albumin/Globulin Ratio 1.0 L, Procalcitonin 0.479 07/12/21 02:43: Lactate 1.1 Result diagrams: 07/12/21 02:43 07/12/21 02:43 Orders (Tests/Meds): ED MEDICATIONS Generic Name Dose Route Start Last Admin Trade Name Freq PRN Reason Stop Dose Admin Sodium Chloride 1,000 mls @ 999 mls/hr 07/12/21 02:30 07/12/21 03:05 Sod Chlor 0.9% 1000ml Bag IV 07/12/21 03:30 999 mls/hr .Q1H1M DMITRI Administration Vancomycin HCl 2,000 mg/ 250 mls @ 125 mls/hr 07/12/21 04:45 07/12/21 04:44 Sodium Chloride IV 07/12/21 06:44 125 mls/hr ONCE ONE Administration Miscellaneous 1 each 07/12/21 04:45 07/12/21 04:41 Vancomycin Consult Request * 08/11/21 04:44 1 each CONSULT PHARMACY DMITRI Administration Discontinued Medications Generic Name Dose Route Start Last Admin Trade Name Freq PRN Reason Stop Dose Admin Iopamidol 120 ml 07/12/21 03:38 07/12/21 03:42 Iopamidol-370 (76%);100ml Bottle IV 07/12/21 03:39 120 ml ONCE ONE Administration Morphine Sulfate 4 mg 07/12/21 02:28 07/12/21 03:05 Morphine 4mg/Ml Syringe IV 07/12/21 02:29 4 mg ONCE ONE Administration Ondansetron HCl 4 mg 07/12/21 02:28 07/12/21 03:05 Ondansetron 4mg/2ml Vial IV 07/12/21 02:29 4 mg ONCE ONE Administration Sodium Chloride 10 ml 07/12/21 03:38 07/12/21 03:42 Sodium Chloride 0.9% 10ml Syr (Rad Only) IV 07/12/21 03:39 10 ml ONCE ONE Administration Sodium Chloride 50 ml 07/12/21 03:38 07/12/21 03:42 0.9 % Sodium Chloride 50 Ml Vial IV 07/12/21 03:39 50 ml ONCE ONE Administration ORDERS Category Date Time Status CT foot RT wo/w con Stat Cat Scan 07/12/21 02:33 Taken Rapid PCR Covid and Flu A/B Stat Lab 07/12/21 04:48 Ordered - Physician Consults Physician Consulted: eliza Reason -: Admission Medical Decision Narrative: has osteo to rt great toe - and will require admit and abx at this time General Adult H
--- NOTE | 2021-07-12 04:52 | PC.NURSE ---
Dr. Moreno paged for Dr. Agrawal re: need for admission
[2021-07-12 04:54] LABS: Coronavirus 19, PCR Not Detected (NotDetected); Influenza A, PCR Not Detected (NotDetected); Influenza B, PCR Not Detected (NotDetected)
--- NOTE | 2021-07-12 04:56 | PC.NURSE ---
Dr. Agrawal on phone with Dr. Moreno
[2021-07-12 05:15] LABS: Hemoglobin A1C 6.2 % (4.0-6.0)
--- NOTE | 2021-07-12 06:20 | PC.NURSE ---
REPORT RECEIVED FROM MICHELINERN
--- NOTE | 2021-07-12 06:45 | PC.NURSE ---
PT ARRIVED FROM ER IN WHEELCHAIR IV FLUIDS NOTED LEAKING AND THE VACOMYCIN HAD BEEN DISCONNECTED.TUBING CHANGED TO PUMP TUBING.
--- NOTE | 2021-07-12 07:20 | HMH.PHAINT ---
MEDICATION RECONCILIATION COMPLETED ON PATIENT USING EXTERNAL FILL HISTORY FROM PHARMACY. -JASON OWEN, ZIOND
--- NOTE | 2021-07-12 07:21 | P.CONPHA_ITS ---
[facility] Pharmacy VTE Monitoring - Patient Demographics Admission date: 07/12/21 Report Date: 07/12/21 Time: 07:21 Allergies/Adverse Reactions: Patient Allergies Penicillins [PENICILLINS] Allergy (Intermediate, Verified 04/25/21 14:12) Height: 1.8 m Weight: 108 kg Patient Problems: Current Active Problems Osteomyelitis (Acute) SIRS (systemic inflammatory response syndrome) (Acute) Tobacco use (Acute) Obesity (BMI 30-39.9) (Acute) - VTE Risk Labs: VTE Related Lab Results Hgb 12.8 g/dL (14.1-18.0) L 07/12/21 02:43 Hct 38.6 % (42.0-52.0) L 07/12/21 02:43 Plt Count 390 K/mm3 (142-424) 07/12/21 02:43 BUN 12 mg/dl (9-20) 07/12/21 02:43 Creatinine 0.70 mg/dl (0.66-1.25) 07/12/21 02:43 Estimated Creat Clear 214 mL/min (50-200) 07/12/21 02:43 - Prophylaxis VTE Prophylaxis Ordered?: Yes Types of VTE Prophylaxis: TEDS Knee High Location of Applied Device: Left Leg
--- NOTE | 2021-07-12 07:51 | P.CONPHA_ITS ---
- Pharmacy Consult Date: 07/12/21 Time: 07:51 Referring provider: DR SAAB Reason for Consult:: VANCOMYCIN DOSING CONSULT Allergies and ADEs:: Allergies Allergy/AdvReac Type Severity Reaction Status Date / Time Penicillins [PENICILLINS] Allergy Intermediate Verified 04/25/21 14:12 Home Medications:: Home Medications Medication Instructions Recorded Confirmed Type Buprenorphine HCl/Naloxone HCl 2 each SL DAILY 02/08/21 07/12/21 History [Suboxone 8 mg-2 mg Sl Film] Height: 1.8 m Weight: 108 kg Laboratory Results:: Laboratory Results - last 24 hr 07/12/21 02:43: WBC 12.6 H, RBC 4.40 L, Hgb 12.8 L, Hct 38.6 L, MCV 87.6, MCH 29.0, MCHC 33.1, RDW 13.4, Plt Count 390, MPV 7.7, Neut % (Auto) 58.8, Lymph % (Auto) 27.0, [place] % (Auto) 7.7, Eos % (Auto) 5.3, Baso % (Auto) 1.2, Neut # (Auto) 7.4, Lymph # (Auto) 3.4, [place] # (Auto) 1.0, Eos # (Auto) 0.7 H, Baso # (Auto) 0.2, ESR > 140 H 07/12/21 02:43: Sodium 136, Potassium 3.5, Chloride 98, Carbon Dioxide 34 H, Anion Gap 7.5, BUN 12, Creatinine 0.70, Estimated Creat Clear 214, Estimated GFR 124, Est GFR ( Amer) 150, Glucose 131 H, Calcium 9.0, Total Bilirubin 0.4, AST 22, ALT 23, Alkaline Phosphatase 109, C-Reactive Protein 142.0 H, Total Protein 7.5, Albumin 3.8, Globulin 3.7 H, Albumin/Globulin Ratio 1.0 L, Procalcitonin 0.479 07/12/21 02:43: Lactate 1.1 07/12/21 02:43: Hemoglobin A1c 6.2 H 07/12/21 04:45: SARS-CoV-2 (PCR) Not detected, Influenza A Untype (PCR) Not detected, Influenza Type B (PCR) Not detected Medical History: Reports:: Depression, Hypertension, Renal Insufficiency (r/t having one kidney ) Denies:: Arrhythmia, Cancer, Coronary Artery Disease, Diabetes Mellitus Type 1, Diabetes Mellitus Type 2, Internal Pacemaker, MRSA, Peripheral Vascular Disease, Pulmonary Embolism Assessment and Plan - Assessment and plan all Dx Assessment and Plan for all problems:: Pharmacokinetic dosing service Objective: Age: 41 yo Serum creatinine: 0.7 mg/dL Height: 70.9 Inches Weight (kg): 108 Diagnosis: OSTEOMYELITIS Assessment: IBW (kg): 75.07 Dosing wt(kg): 88.2 Estimated Creatinine clearance (ml/min): 130 Clearance limited to 130 ml/min to reduce risk of overdosing. CRCL method: Cockcroft and Gault using adjusted body weight Drug selected: Vancomycin Loading dose (mg): 2000 MG Vd (liters): 61.7 (factor used: 0.7 L/kg) Regan (hr-1): 0.112 Half life (hrs): 6.19 CLvanco=?? 6.910 L/hr Recommended dose: 1750 mg Interval: 12 hrs Infusion time (hrs): 2.0 Predicted peak (mcg/mL): 34.4 Predicted trough (mcg/mL): 11.22 Adjusted body weight was selected for vancomycin dosing. To switch back, select the total body weight option above. Recommendations: Give Vancomycin 1750 mg q 12 hrs with an expected Cpeak of 34.4 mcg/ml and an expected Ctrough of 11.22 mcg/ml TO START 07/12/21 AT 17:00. PATIENT RECEIVED A LOADING DOSE OF VANCOMYCIN 2000 MG IV ONCE ON 07/12/21 AT 04:44. AUC 0-24 /FRIEDA Data: FRIEDA 0.5 mcg/mL:?? AUC/FRIEDA:? 1013.0 FRIEDA 1.0 mcg/mL:?? AUC/FRIEDA:? 506.5 --------- FRIEDA 1.5 mcg/mL:?? AUC/FRIEDA:? 337.7 FRIEDA 2.0 mcg/mL:?? AUC/FRIEDA:? 253.3 Thank you for the consult, will continue to follow.
--- NOTE | 2021-07-12 08:45 | XR_ITS ---
FINAL REPORT TECHNIQUE: Chest PA & Lateral CLINICAL HISTORY: tobacco abuse, hypertension, obesity COMPARISON: February 08, 2021 FINDINGS: 2 views of the chest were performed. The heart size is normal. The mediastinum is within normal limits. There is no acute cardiopulmonary process. There are no pleural effusions. There is no pneumothorax. The bony thorax appears intact. IMPRESSION: No acute cardiopulmonary process. Reviewed, Interpreted and Dictated by Andrea Henley MD Transcribed by Yuniel Garcia Authenticated by Andrea Henley MD on 07/12/2021 10:06:22 AM [facility]
--- NOTE | 2021-07-12 08:47 | PC.NURSE ---
PODIATRY CAME TO SEE PT. PLAN TO AMPUTATE R BIG TOE TODAY. SURGERY CONSENT SIGNED. PT REMAINS NPO. MORPHINE IS WORKING WELL FOR PAIN. PT RESTING COMFORTABLY IN BED AT THIS TIME. NO NEEDS. VSS, WILL CONTINUE TO MONITOR.
--- NOTE | 2021-07-12 08:48 | ECG_ITS ---
APPROVED REPORT Exam: Resting ECG HR:89 bpm ECG Measurements Heart Rate 89 AXES NV 148 P 58 QRSd 97 QRS 73 QT 350 T 47 QTc 397 Conclusion SINUS RHYTHM NORMAL ECG UNCONFIRMED REPORT Electronically signed by : Benji Morris MD 07/14/2021 17:44:13
--- NOTE | 2021-07-12 08:49 | HMH.ORTHOCON ---
*Admission Date: 07/12/21 *Reason for consult:: Infected right great toe *History of present illness: This is a 41 year- old male patient, last seen in podiatry clinic 04/25/21 for right foot cellulitis and right great toe ulcer. He had MRI done 05/27/21 which revealed osteomyelitis of first distal phalanx. Patient was schedulled to follow up with podiatry for review of MRI but he did not follow up with podiatry as advised. Patient was admitted for right great toe osteomyelitis and IV antibiotics. PCP team consulted podiatry for treatment of right hallux osteomyelitis and wound care. Patient sitting up in bed. No acute distress noted. Right hallux ayaka wound cellulitis and edema noted. There is yellow, purulence drainage noted to palntar/medial right hallux wound. Patient rates pain level 10/10. Primary nurse at bedside. Patient medicated with IV morphine for pain. Consent for right hallux amputation, incision and drainage obtained. Patient to remain NPO. We will obtain stat EKG and Stat Chest X-ray prior to surgery. [facility] History Medical History: Reports:: Depression, Hypertension, Renal Insufficiency (r/t having one kidney ) Denies:: Arrhythmia, Cancer, Coronary Artery Disease, Diabetes Mellitus Type 1, Diabetes Mellitus Type 2, Internal Pacemaker, MRSA, Peripheral Vascular Disease, Pulmonary Embolism *Have you ever received a pneumonia vaccine?: No *Have you received a flu vaccine this season?: No Laterality Cases: Bilateral: Tonsillectomy Other Surgeries: Yes: Cholecystectomy. No: Pacemaker Amputation: No Fractures: No - *Social History Smoking Status: Current every day smoker Tobacco Type: cigarettes # Packs/Day (cigarettes): 1 Alcohol Intake: never Substance Use Type: former substance user, painkillers, amphetamines *Occupational Status:: employed *Travel in the last 8 weeks: None - Psychiatric History Pschychiatric History:: Reports:: Depression Family Hx:: No significant family history Review of Systems - *Neurologic Denies localized weakness Meds Home Medications Medication Instructions Recorded Confirmed Type Buprenorphine HCl/Naloxone HCl 2 each SL DAILY 02/08/21 07/12/21 History [Suboxone 8 mg-2 mg Sl Film] Allergies Allergy/AdvReac Type Severity Reaction Status Date / Time Penicillins [PENICILLINS] Allergy Intermediate Verified 04/25/21 14:12 Exam Vital signs and Labs for Last 24 Hours: Temp Pulse Resp BP Pulse Ox 97.7 F 90 18 134/77 99 07/12/21 07:51 07/12/21 07:51 07/12/21 07:51 07/12/21 07:51 07/12/21 07:51 Laboratory Results - last 24 hr 07/12/21 02:43: WBC 12.6 H, RBC 4.40 L, Hgb 12.8 L, Hct 38.6 L, MCV 87.6, MCH 29.0, MCHC 33.1, RDW 13.4, Plt Count 390, MPV 7.7, Neut % (Auto) 58.8, Lymph % (Auto) 27.0, [place] % (Auto) 7.7, Eos % (Auto) 5.3, Baso % (Auto) 1.2, Neut # (Auto) 7.4, Lymph # (Auto) 3.4, [place] # (Auto) 1.0, Eos # (Auto) 0.7 H, Baso # (Auto) 0.2, ESR > 140 H 07/12/21 02:43: Sodium 136, Potassium 3.5, Chloride 98, Carbon Dioxide 34 H, Anion Gap 7.5, BUN 12, Creatinine 0.70, Estimated Creat Clear 214, Estimated GFR 124, Est GFR ( Amer) 150, Glucose 131 H, Calcium 9.0, Total Bilirubin 0.4, AST 22, ALT 23, Alkaline Phosphatase 109, C-Reactive Protein 142.0 H, Total Protein 7.5, Albumin 3.8, Globulin 3.7 H, Albumin/Globulin Ratio 1.0 L, Procalcitonin 0.479 07/12/21 02:43: Lactate 1.1 07/12/21 02:43: Hemoglobin A1c 6.2 H 07/12/21 04:45: SARS-CoV-2 (PCR) Not detected, Influenza A Untype (PCR) Not detected, Influenza Type B (PCR) Not detected I & O for Last 24 hours: Intake & Output 07/09/21 07/10/21 07/11/21 07/12/21 23:59 23:59 23:59 23:59 Weight 238 lb 1.588 oz - Constitutional no acute distress - *Routine HEENT Exam Head: Present: normocephalic Eye: Present: EOMI ENT: Present: mucous membranes moist - *Routine Neck Exam Present: supple - *Routine Respiratory Exam Absent: respiratory distress - *Routine Cardiovascular Exam Present:
--- NOTE | 2021-07-12 10:59 | HMH.HP ---
*Admission Date: 07/12/21 *Chief complaint: Right foot pain *History of present illness: Mr. Schwarz is a 41-year-old male with a history of depression, hypertension, renal insufficiency (due to having 1 kidney out), and previous drug abuse on Suboxone, who presented to [facility] emergency room for increasing pain, edema, and erythema of his right lower extremity. Patient has been treated by podiatry in the past and was seen today by them with the following notation: This is a 41 year- old male patient, last seen in podiatry clinic 04/25/21 for right foot cellulitis and right great toe ulcer. He had MRI done 05/27/21 which revealed osteomyelitis of first distal phalanx. Patient was schedulled to follow up with podiatry for review of MRI but he did not follow up with podiatry as advised. Patient was admitted for right great toe osteomyelitis and IV antibiotics. PCP team consulted podiatry for treatment of right hallux osteomyelitis and wound care. Patient sitting up in bed. No acute distress noted. Right hallux ayaka wound cellulitis and edema noted. There is yellow, purulence drainage noted to palntar/medial right hallux wound. Patient rates pain level 10/10. Primary nurse at bedside. Patient medicated with IV morphine for pain. Consent for right hallux amputation, incision and drainage obtained. Patient to remain NPO. We will obtain stat EKG and Stat Chest X-ray prior to surgery. With evaluation in the emergency room patient had a CT of the right lower extremity with and without contrast with the following impression: IMPRESSION: Bony destruction with cortical disruption of the distal phalanx of the great toe consistent with osteomyelitis. Diffuse cellulitis is seen throughout the great toe. No abscess is identified. Laboratory data revealed a white blood cell count of 12,600 with a hemoglobin of 12.8 hematocrit of 38.6; renal function was good with a BUN of 12 and creatinine of 0.7. C-reactive protein was 142. Patient received a liter of IVF, was started on IV vancomycin and given morphine IV and Zofran IV. At the time of this exam patient has been seen by podiatry and surgery is planned for this a.m. To note Patient states that initially he got his feet wet while walking and developed a blister in the area of his right great toe. The skin broke down and formed an open wound which he treated with Neosporin and bandages. Patient was seen in the ER on several occasions and eventually did follow with podiatry as above. [facility] History Medical History: Reports:: Depression, Hypertension, Renal Insufficiency (r/t having one kidney ) Denies:: Arrhythmia, Cancer, Coronary Artery Disease, Diabetes Mellitus Type 1, Diabetes Mellitus Type 2, Internal Pacemaker, MRSA, Peripheral Vascular Disease, Pulmonary Embolism *Have you ever received a pneumonia vaccine?: No *Have you received a flu vaccine this season?: No Laterality Cases: Bilateral: Tonsillectomy Other Surgeries: Yes: Cholecystectomy. No: Pacemaker Amputation: No Fractures: No - *Social History Smoking Status: Current every day smoker Tobacco Type: cigarettes # Packs/Day (cigarettes): 1 Alcohol Intake: never Substance Use Type: former substance user, painkillers, amphetamines *Occupational Status:: employed *Travel in the last 8 weeks: None - Psychiatric History Pschychiatric History:: Reports:: Depression Family Hx:: Coronary Artery Disease Review of Systems - Constitutional Denies fever(s) - Eyes Denies change in vision - ENT Denies dizziness, Denies ear pain, Denies sore throat - *Cardiovascular Reports leg swelling, Denies chest pain, Denies shortness of breath, Denies irregular heart rhythm - *Respiratory Denies chest congestion, Denies cough, Denies shortness of breath - *Gastrointestinal Denies abdominal pain, Denies change in stools, Denies heartburn, Denies nausea, Denies vomiting - *Genitourinary Denies difficulty urinating - *Musculos
--- NOTE | 2021-07-12 12:41 | HMH.ANESCL ---
[facility] Anesthesia Checklist - Patient Identification Patient Identification: Arm Band - Structural Data Admitted From: Inpatient Planned Operative Procedure/s: Right Hallux Amputation Consent for Planned Operative Procedure(s) Verified: Yes Verified Documents: Surgical Consent, History and Physical - NPO Status Verified Time NPO: 00:00 - Additional verifications Anesthesia Reactions: No - Airway Assessment C-Spine Mobility Assessed: Yes (mp2) TMJ Mobility Assessed: Yes Dentition: Good Dentition - Neurological Assessment Level of Consciousness: Awake, Alert - Anesthesia Plan Anesthesia Risk discussed: Yes Anesthesia Plan: Verified ASA Class: II Anesthesia Type: General [facility] History I have reviewed the patient's past medical history: Yes Medical History: Reports:: Depression, Hypertension, Renal Insufficiency (r/t having one kidney ) Denies:: Arrhythmia, Cancer, Coronary Artery Disease, Diabetes Mellitus Type 1, Diabetes Mellitus Type 2, Internal Pacemaker, MRSA, Peripheral Vascular Disease, Pulmonary Embolism *Have you ever received a pneumonia vaccine?: No *Have you received a flu vaccine this season?: No Anesthesia experience/problems:: nac Laterality Cases: Bilateral: Tonsillectomy Other Surgeries: Yes: Cholecystectomy. No: Pacemaker Amputation: No Fractures: No - *Social History Smoking Status: Current every day smoker Tobacco Type: cigarettes # Packs/Day (cigarettes): 1 Alcohol Intake: never Substance Use Type: former substance user, painkillers, amphetamines *Occupational Status:: employed *Travel in the last 8 weeks: None - Psychiatric History Pschychiatric History:: Reports:: Depression Family Hx:: Coronary Artery Disease
--- NOTE | 2021-07-12 13:18 | HMH.OPNOTE ---
Date of procedure: 07/12/21 Pre-op Diagnosis:: 1. Right hallux osteomyelitis 2. Right hallux cellulitis 3. Bordeline DM type 2, Ha1c 6.2% 4. Obesity class 1 5. Non-compliance Post-op Diagnosis:: Same Procedure performed:: 1. Right foot incision and drainage 2. Right hallux amputation w/ulcer excision Surgeon:: Pati Chandler DPM DISCOVERY MANAGER:: John Ernandez Anesthesia: local (20cc 0.5% marcaine plain), LMA Estimated blood loss (mL): 10 Clinical Note:: Patient is a 41-year-old noncompliant male who presented to the ER last night with complaints of worsening redness, swelling and pain to the right great toe. Patient was previously seen by myself in the ER. He failed to follow-up for several months. He was seen once outpatient in the podiatry office. MRI ordered which did show osteomyelitis but patient did not follow-up for surgery. New CT scan right foot taken today revealed osteomyelitis of the great toe. Images were reviewed and discussed with the patient. We discussed conservative versus surgical treatment options. Conservative treatment options include local wound care, oral and IV antibiotics, change in shoe wear, taping/padding, and off-loading. We discussed surgical intervention for amputation of the great toe. Patient understands that there is a chance that the toes can migrate to fill the gap or the foot may change shape after surgery. Patient also understands that they could have wound healing complications including delayed healing and infection. We discussed that if the wound does not heal, it is possible that they may need a more proximal amputation and could result in further loss of digits, loss of partial foot or loss of leg. We discussed the risks and benefits in great detail. Other surgical risks include: prolonged pain and swelling, further infection requiring oral or IV antibiotics, delay in healing of soft tissue or bone, nerve or blood vessel damage, CRPS/RSD, DVT, anesthesia complications, and even . All questions answered. Patient verbalized understanding. Consent obtained. Operative findings:: Right great toe plantar ulcer noted. Ulcer measured approximately 2 x 3 x 0.9 cm full-thickness through skin, subcutaneous tissue, deep fascia down to the level of the distal phalanx bone. Bone visible in the wound. There was purulent drainage noted creamy yellow from the ulcer, wound culture taken. Cellulitis noted to the great toe extending to the first MPJ. No purulence or drainage tracking up the extensor flexor tendons past the first metatarsal head. First metatarsal seemed to be intact with no obvious cortical erosions. Operative note:: On this date and time patient was deemed an appropriate surgical candidate. With informed consent signed, the patient was taken to the operating theater. The patient was positioned supine. General anesthesia was induced. Mid calf tourniquet used @225mmHg. IV Vanco, Clinda given. Pre-op right hallux blocks given with 20 cc 0.5% marcaine plain. Right foot incision and drainage: The right lower extremity was prepped and drapped in normal sterile fashion. Cellulitis noted around the hallux plantar ulcer. A racquetball incision was made. Dorsal incision full-thickness down to the first metatarsal head. There was some serous drainage noted around the first metatarsal head. Infection did not appear to be tracking up the extensor flexor tendon. Right hallux amputation, ulcer excision: The dorsal incision was extended distally around the great toe including the ulcer. There is purulent drainage noted from the ulcer. Wound culture taken from the plantar ulcer which did probe deeply to the level of the distal phalanx plantarly. Utilizing a 15 blade dissection was carried down sharply to the level of the bone around the distal phalanx which was disarticulated from the proximal phalanx. The ulcer was removed in total and sent for gross path. All nonviable soft tissue was debrided. The distal phalanx bone was
--- NOTE | 2021-07-12 13:24 | P.PN_ITS ---
[facility] Anesthesia Record Part I Intake, IV Amount: 800 Estimated blood loss (mL): 5 Urine output (mL): 0 Blood Pressure: 132/72 SaO2: 97 Pulse Rate: 82 Respiratory Rate: 16 Temperature: 98 F Patient is:: Drowsy, Stable Stable to PACU at:: 13:20
--- NOTE | 2021-07-12 13:24 | XR_ITS ---
FINAL REPORT CLINICAL HISTORY: Post op hallux amp COMPARISON: 04/06/2021 FINDINGS: RIGHT FOOT Three views were obtained. There is no acute fracture or dislocation. There are postoperative changes from amputation of the right 1st digit. There is overlying soft tissue edema. Soft tissue edema measures 2.6 cm. There is no evidence of bony erosion. IMPRESSION: Amputation of the right 1st digit with soft tissue edema. Reviewed, Interpreted and Dictated by Andrea Henley MD Transcribed by Carlene Marcano Authenticated by Andrea Henley MD on 07/12/2021 04:11:[address] [facility]
--- NOTE | 2021-07-12 14:00 | PC.NURSE ---
Pt returned to floor from PACU via bed to room 280
--- NOTE | 2021-07-12 15:49 | P.PN_ITS ---
[facility] Anesthesia Record Part II Discharge Time: 13:50 Destination: Surgical Day Care (OP Surgery) PACU nurse assessment reviewed?: Yes Patient Condition:: Good Anesthesia Complications:: None Swallowing reflex intact?: Yes Cyanosis?: No Blood Pressure: 119/69 Pulse Rate: 83 Temperature: 97.4 F Mental Status: Alert & Oriented Pain level:: 0 Nausea and/or vomitting:: None Intake, IV Amount: 0
--- NOTE | 2021-07-12 21:53 | PC.NURSE ---
Pt called out and reports he is tired of his pump beeping when he bends his arm . IV site assessed. IV patent and infusing well. Pt states I don't want to hold my arm straight can yo put a new IV in . 20g IV placed in the Lt hand.
[2021-07-13] VITALS: BP 153/87; PULSE 109; RESP 18; TEMP 36.3; O2SAT 97
[2021-07-13 04:00] VITALS: BP 141/72; PULSE 103; RESP 18; TEMP 36.7; O2SAT 98
--- NOTE | 2021-07-13 04:44 | PC.NURSE ---
Pt has slept in intervals this shift. BLT lungs with expiratory wheezing throughout. Bowel sounds present in all 4 quadrants. IV's patent and infusing well. Pt is on RA. Pt has been up to the chair with standby assist. Dressing to Rt foot remains C/D/I. Pt denies any SOA, headache or N/V. VSS
[2021-07-13 06:49] LABS: Basophils # 0.1 K/mm3 (0-0.2); Basophils % 0.5 % (0.1-2.0); Eosinophils % 0.4 % (0.1-12.0); Hemoglobin 11.4 g/dL (14.1-18.0); Lymphocytes # 2.4 K/mm3 (0.7-4.5); Lymphocytes % 20.8 % (10-50); Mean Corpuscular HGB Conc 32.5 g/dL (31.8-35.4); Mean Corpuscular Hemoglobin 28.6 pg (27.0-31.2); Mean Corpuscular Volume 88.2 fl (80-94); Mean Platelet Volume 7.6 fl (7.4-10.4); Monocytes # 0.8 K/mm3 (0.1-1.0); Monocytes % 6.8 % (1.7-9.3); Neutrophils # 8.2 K/mm3 (1.8-7.8); Neutrophils % 71.5 % (37.0-80.0); Platelet Count 422 K/mm3 (142-424); Red Blood Count 3.97 M/mm3 (4.60-6.20); Red Cell Distribution Width 13.4 % (11.5-17.5); White Blood Count 11.5 K/mm3 (4.8-10.8)
[2021-07-13 07:06] LABS: Chloride 104 mmol/L (98-107)
[2021-07-13 07:07] LABS: Sodium 135 mmol/L (136-145)
[2021-07-13 07:09] LABS: Alanine Aminotransferase 27 U/L (12-78); Alkaline Phosphatase 116 U/L (38-126); Aspartate Amino Transferase 28 U/L (17-59); Bilirubin,Total 0.2 mg/dl (0.2-1.3); Blood Urea Nitrogen 10 mg/dl (9-20); Carbon Dioxide 27 mmol/L (22.0-30.0); Creatinine Clearance Estimated 186 mL/min (50-200); Estimated Glomerular Filt Rate 107 ml/min (>60); GFR (African American) 129 ML/MIN (>60)
[2021-07-13 07:10] LABS: Albumin Level 3.2 g/dl (3.5-5.0); Calcium 7.9 mg/dl (8.4-10.2); Globulin 3.3 g/dL (1.3-3.2); Glucose 178 mg/dl (74-100); Total Protein,Serum 6.5 g/dl (6.3-8.2)
[2021-07-13 07:15] LABS: C-Reactive Protein 70.1 mg/L (0-4)
--- NOTE | 2021-07-13 08:12 | HMH.ACPN2 ---
Internal Medicine - PN: Subj *Date: 07/13/21 *Time: 08:12 Interval history: Patient states he is having some pain in his foot. His worst complaint is a headache from the morphine. He states he does not want any more morphine and he wants to go home today. He did not sleep well last night and he is not hungry this morning. Exam Vital signs and Labs for Last 24 Hours: Temp Pulse Resp BP Pulse Ox 98.0 F 103 H 18 141/72 H 98 07/13/21 04:00 07/13/21 04:00 07/13/21 04:00 07/13/21 04:00 07/13/21 04:00 Laboratory Results - last 24 hr 07/13/21 06:35: WBC 11.5 H, RBC 3.97 L, Hgb 11.4 L, Hct 35.0 L, MCV 88.2, MCH 28.6, MCHC 32.5, RDW 13.4, Plt Count 422, MPV 7.6, Neut % (Auto) 71.5, Lymph % (Auto) 20.8, [place] % (Auto) 6.8, Eos % (Auto) 0.4, Baso % (Auto) 0.5, Neut # (Auto) 8.2 H, Lymph # (Auto) 2.4, [place] # (Auto) 0.8, Eos # (Auto) 0.0, Baso # (Auto) 0.1 07/13/21 06:35: Sodium 135 L, Potassium 4.0, Chloride 104, Carbon Dioxide 27, Anion Gap 8.0, BUN 10, Creatinine 0.80, Estimated Creat Clear 186, Estimated GFR 107, Est GFR ( Amer) 129, Glucose 178 H, Calcium 7.9 L, Total Bilirubin 0.2, AST 28 D, ALT 27, Alkaline Phosphatase 116, C-Reactive Protein 70.1 H D, Total Protein 6.5, Albumin 3.2 L D, Globulin 3.3 H, Albumin/Globulin Ratio 1.0 L I & O for Last 24 hours: Intake & Output 07/10/21 07/11/21 07/12/21 07/13/21 11:59 11:59 11:59 11:59 Intake Total 2079 Balance 2079 Weight 238 lb 1.588 oz Microbiology Reports for the Last 24 Hours: Microbiology 07/12/21 12:46 Toe,Right Great Gram Stain - Final - Constitutional no acute distress - *Routine Respiratory Exam Present: CTA bilaterally - *Routine Cardiovascular Exam Present: RRR - *Routine Abdominal Exam Present: soft, normoactive bowel sounds. Absent: tenderness - *Routine Extremities Exam Absent: cyanosis, clubbing, edema - *Routine Skin Exam Comments: Right foot with dressing in place - *Routine Neurological Exam Present: alert, oriented X3 Assessment and Plan (1) Cellulitis of right foot Start date: 07/12/21 Start time: 08:20 Status: Acute Category: Medical Code(s): L03.115 - Cellulitis of right lower limb (2) Encounter for wound care Start date: 07/12/21 Start time: 08:20 Status: Acute Category: Medical Code(s): Z51.89 - Encounter for other specified aftercare (3) Skin ulcer of right great toe Start date: 07/12/21 Start time: 08:20 Status: Acute Qualifiers: Non-pressure ulcer stage: limited to breakdown of skin Qualified Code(s): L97.511 - Non-pressure chronic ulcer of other part of right foot limited to breakdown of skin Category: Medical Code(s): L97.519 - Non-pressure chronic ulcer of other part of right foot with unspecified severity (4) Neuropathy Start date: 07/12/21 Start time: 08:20 Status: Acute Category: Medical Code(s): G62.9 - Polyneuropathy, unspecified (5) Osteomyelitis Start date: 07/12/21 Start time: 08:20 Status: Acute Qualifiers: Osteomyelitis type: unspecified type Osteomyelitis location: other site Qualified Code(s): M86.9 - Osteomyelitis, unspecified Category: Medical Code(s): M86.9 - Osteomyelitis, unspecified (6) Tobacco use Start date: 07/12/21 Start time: 08:20 Status: Acute Category: Social Hx Code(s): Z72.0 - Tobacco use (7) Obesity (BMI 30-39.9) Start date: 07/12/21 Start time: 08:20 Status: Acute Category: Medical Code(s): E66.9 - Obesity, unspecified (8) Solitary kidney, congenital Status: Chronic Category: Medical Code(s): Q60.0 - Renal agenesis, unilateral (9) Hx of drug abuse Status: Chronic Category: Medical Code(s): F19.11 - Other psychoactive substance abuse, in remission - Assessment and plan all Dx Assessment and Plan for all problems:: Patient underwent right foot incision and drainage and right hallux amputation yesterday. He
--- NOTE | 2021-07-13 08:25 | PC.NURSE ---
Dressing change performed per . Pt tolerated well even though he seemed agitated during procedure. Dr. Chandler reinforced importance of compliance with follow up appointments, wound care, weight bearing, and antibiotics therapy. Verbalized understanding. Pt has not been compliant with care and follow up appointments in the past.
[2021-07-13 08:36] VITALS: BP 146/75; PULSE 96; RESP 18; TEMP 36.4; O2SAT 98
--- NOTE | 2021-07-13 08:39 | HMH.ORTHPN ---
Subjective Date: 07/13/21 Time: 08:00 Principal diagnosis: Right hallux OM Interval history: Patient resting comfortably in bed. Reports pain has improved since before surgery. Discussed compliance with postop protocol including follow-ups, taking antibiotics as directed, using postop shoe and crutches. History of noncompliance in the past. Patient understands high likelihood of wound dehiscence, infection recurrence, risk of more proximal amputation if he is noncompliant. Patient verbalized understanding and states I am going home today . PN: Obj Ex Vital signs: Temp Pulse Resp BP Pulse Ox 97.6 F 96 H 18 146/75 H 98 07/13/21 08:36 07/13/21 08:36 07/13/21 08:36 07/13/21 08:36 07/13/21 08:36 - Constitutional no acute distress - Routine HEENT Exam Head: Present: normocephalic - Routine Respiratory Exam Absent: respiratory distress - Routine Cardiovascular Exam Present: RRR - Routine Abdominal Exam Present: obese - Routine Extremities Exam Present: edema, pulses intact - Detailed Lower Extremity Exam Foot/Toes: Right amputation (R hallux amputation: sutures c/d/i, some maceration to central incision. Decreased pain. No purulence, drainage noted. Cellulitis has improved.) Progress Note: A&P (1) Cellulitis of right foot Status: Acute (2) Encounter for wound care Status: Acute (3) Skin ulcer of right great toe Status: Acute (4) Neuropathy Status: Acute (5) Osteomyelitis Status: Acute (6) Tobacco use Status: Acute (7) Obesity (BMI 30-39.9) Status: Acute (8) Solitary kidney, congenital Status: Chronic (9) Hx of drug abuse Status: Chronic Assessment and Plan for All Diagnoses:: Microbiology 02/08/21 16:40 Toe,Right Great Gram Stain - Final 02/08/21 16:40 Toe,Right Great Wound Culture - Final Staphylococcus aureus Proteus vulgaris/penneri 07/12/21 12:46 Toe,Right Great Gram Stain - Final Laboratory Tests 07/12/21 07/12/21 07/12/21 02:43 02:43 02:43 WBC 12.6 H ESR > 140 H Hemoglobin A1c 6.2 H C-Reactive Protein 142.0 H 07/13/21 07/13/21 06:35 06:35 WBC 11.5 H ESR Hemoglobin A1c C-Reactive Protein 70.1 H D Surgery, 07/13/2021: s/p right hallux amputation, incision and drainage Intra-op Specimens: Right hallux WCx: gram stain GPC Right hallux bone culture: pending Right hallux bone pathology: pending 07/13/2021: POD #1 -Continue IV Vanco while in house -Dressing changed, new Betadine dry sterile dressing applied -Patient will need dressing change 3 times weekly (every other day) -Dsg change orders: apply betadine to gauze, apply dry gauze, then secure with monie richter -Patient states he can do dressing at home but agrees to [facility] wound care patient -NWB to right heel in postop shoe with crutches -Ok to put weight to heel for transitions -Minimize activity and tension to the foot to decrease risk of wound dehiscence -We will need oral antibiotics: 02/08/21: WCx has hx staph aureus and Proteus vulgaris/penneri (both were susceptible to Bactrim) -Given drug abuse history and Suboxone not a candidate for PICC line -Recommend Bactrim DS BID x14 days -F/u in [facility] outpatient in 1 week -F/u with Podiatry outpatient in 1-2 weeks
--- NOTE | 2021-07-13 09:45 | PC.NURSE ---
Addendum entered by Shalonda Pearl RN 07/13/21 11:02: 0940- IV catheter found in pt's bathroom trash can from where he had removed it himself. Catheter was intact. Original Note: 0931- Entered pt's room to medicate him with scheduled Metformin. Upon entering room discovered that pt had apparently left AMA. Notified Diving Instructor of incident and then called admissions in Front Lobby and ER to see if anyone had noticed him leaving. Both areas denies seeing him. manager study notified DON of incident. 0932- This Nurse, Diving Instructor, and SRNA searched hospital for pt. 0953- Dr. Chandler and Dr. Moreno notified of pt leaving. 0955- Diving Instructor notified that pt was seen leaving hospital ER exit on security camera per [place]. Pt was being pushed out in a wheelchair per at 0923.
[2021-07-13 10:13] LABS: Erythrocyte Sedimentation Rate > 140 mm/hr (0-15)
--- NOTE | 2021-07-14 16:10 | HMH.DCSUM ---
General - General Admission date:: 07/12/21 Discharge date: 07/13/21 HPI HPI: Mr. Schwarz is a 41-year-old male with a history of depression, hypertension, renal insufficiency (due to having 1 kidney out), and previous drug abuse on Suboxone, who presented to [facility] emergency room for increasing pain, edema, and erythema of his right lower extremity. Patient has been treated by podiatry in the past and was seen today by them with the following notation: This is a 41 year- old male patient, last seen in podiatry clinic 04/25/21 for right foot cellulitis and right great toe ulcer. He had MRI done 05/27/21 which revealed osteomyelitis of first distal phalanx. Patient was schedulled to follow up with podiatry for review of MRI but he did not follow up with podiatry as advised. Patient was admitted for right great toe osteomyelitis and IV antibiotics. PCP team consulted podiatry for treatment of right hallux osteomyelitis and wound care. Patient sitting up in bed. No acute distress noted. Right hallux ayaka wound cellulitis and edema noted. There is yellow, purulence drainage noted to palntar/medial right hallux wound. Patient rates pain level 10/10. Primary nurse at bedside. Patient medicated with IV morphine for pain. Consent for right hallux amputation, incision and drainage obtained. Patient to remain NPO. We will obtain stat EKG and Stat Chest X-ray prior to surgery. With evaluation in the emergency room patient had a CT of the right lower extremity with and without contrast with the following impression: IMPRESSION: Bony destruction with cortical disruption of the distal phalanx of the great toe consistent with osteomyelitis. Diffuse cellulitis is seen throughout the great toe. No abscess is identified. Laboratory data revealed a white blood cell count of 12,600 with a hemoglobin of 12.8 hematocrit of 38.6; renal function was good with a BUN of 12 and creatinine of 0.7. C-reactive protein was 142. Patient received a liter of IVF, was started on IV vancomycin and given morphine IV and Zofran IV. At the time of this exam patient has been seen by podiatry and surgery is planned for this a.m. To note Patient states that initially he got his feet wet while walking and developed a blister in the area of his right great toe. The skin broke down and formed an open wound which he treated with Neosporin and bandages. Patient was seen in the ER on several occasions and eventually did follow with podiatry as above. Hospital Course Hospital Course: The patient was taken to the OR on 07/12/2021 and had right foot incision and drainage and right hallux amputation with ulcer excision. The plan was for the patient to be partial weightbearing to the right lower extremity with a fracture boot and DME assistance. Podiatry wanted him kept overnight for a dressing change the next day. He had an x-ray after surgery showing amputation of the right first digit with soft tissue edema. By 07/13/2021, the patient stated he was having some pain in his foot, but his worst complaint was a headache from the morphine. He stated he wanted to go home and was not sleeping and eating well in the hospital. He was seen by Dr. Chandler who wanted him continued on IV vancomycin while in the hospital. She felt he would need dressing changes 3 times a week and would need to remain nonweightbearing to the right heel in a postop shoe with crutches. She felt it was okay for him to put weight on his heel for transitions, but he should minimize activity and tension to the foot. His wound culture from 02/08/2021 showed staph aureus and Proteus and both were susceptible to Bactrim. Given his history with drug abuse and Suboxone he was not a candidate for PICC line, therefore she recommended Bactrim DS twice daily x14 days and wanted him to follow-up in her office. Dr. Moreno also started the patient on Metformin due to a new diagnosis of diabetes. The patient
--- NOTE | 2021-07-15 15:32 | CARE MANAGER ---
CM attempted to call patient to discuss post elopement status. His phone goes straight to voicenjil.
== END 2021-07-13 11:27 | disposition left against medical advice (07) | DRG 504 ==
LOC: ER 04:57 → OB 08:33 → 2ND 13:07
PROVIDERS: Podiatrist; Admitting Provider Family Medicine; Emergency Provider Emergency Medicine; PCP Internal Medicine; Visit Provider Family Medicine
PROC: 0Y6P0Z1 Detachment at Right 1st Toe, High, Open Approach (ICD-10-PCS; principal; 2021-07-12 11:30)
DX: M86.171 Other acute osteomyelitis, right ankle and foot (principal); L03.115 Cellulitis of right lower limb; L97.516 Non-pressure chronic ulcer of other part of right foot with bone involvement without evidence of necrosis; Q60.0 Renal agenesis, unilateral; I10 Essential (primary) hypertension; F17.210 Nicotine dependence, cigarettes, uncomplicated; Z91.19 Patient's noncompliance with other medical treatment and regimen; E11.9 Type 2 diabetes mellitus without complications; Z79.84 Long term (current) use of oral hypoglycemic drugs; F19.11 Other psychoactive substance abuse, in remission; G62.9 Polyneuropathy, unspecified
CPT/HCPCS: 28810; 36415; 71046; 73630; 73702; 80053; 83036; 83605; 84145; 85025; 85651; 86140; 87070; 87075; 87077; 87186; 87205; 88304; 88305; 88311; 93005; 96365; 96366; 96375; 99285; C9803; J2405; J3370; Q9967; U0003; U0005

== ENCOUNTER 2022-07-06 05:03 | Emergency (ER) | payer OTHER, SELFPAY ==
[2022-07-06] VITALS (8 sets, daily range): BP systolic 123–136; BP diastolic 68–76; PULSE 75–102; RESP 16–24; TEMP 36.6–37.2; O2SAT 96–97; BMI 32.1
--- NOTE | 2022-07-06 05:21 | XR_ITS ---
PROCEDURE INFORMATION: Exam: XR Chest Exam date and time: 07/06/2022 5:31 AM Age: 42 years old Clinical indication: Cough TECHNIQUE: Imaging protocol: Radiologic exam of the chest. Views: 2 views. COMPARISON: 1. CR XR CHEST 2V 07/12/2021 8:58 AM 2. CR XR CHEST PORTABLE 02/08/2021 7:30 PM 3. CR CXR2V XR chest 2V 10/09/2017 7:14 PM 4. CR CXR CHEST(2 VIEWS-NOT PORTABLE) 10/05/2016 6:54 PM FINDINGS: Lungs: Unremarkable. No consolidation. Pleural spaces: Unremarkable. No pleural effusion. No pneumothorax. Heart/Mediastinum: Prominence of the right superior mediastinum/right paratracheal region is unchanged compared with 2017 making it unlikely to represent an aggressive process. The left higher border is chronically ill-defined, likely due to a pericardial fat pad. No cardiomegaly. Bones/joints: There are multilevel chronic-appearing low-grade compression deformities involving the mid to lower thoracic spine. Moderate osteoarthritis involves the right acromioclavicular joint, which may be due to remote trauma in a patient of this age. IMPRESSION: No evidence of pneumonia.
--- NOTE | 2022-07-06 05:23 | CT_ITS ---
PROCEDURE INFORMATION: Exam: CT Right Lower Extremity Without Contrast, Foot Exam date and time: 07/06/2022 5:35 AM Age: 42 years old Clinical indication: Pain; Foot; Bilateral; Prior surgery; Additional info: Bilateral foot pain TECHNIQUE: Imaging protocol: CT of the right lower extremity without contrast was performed. Exam focused on the foot. Radiation optimization: All CT scans at this facility use at least one of these dose optimization techniques: automated exposure control; mA and/or kV adjustment per patient size (includes targeted exams where dose is matched to clinical indication); or iterative reconstruction. REPORTING DATA: Count of CT and Cardiac NM exams in prior 12 months: This patient has received 2 known CTs and 0 known cardiac nuclear medicine studies in the 12 months prior to the current study. COMPARISON: 1. CT FOOT RT WO/W CON 07/12/2021 2:55 AM 2. MR FOOT RT WO/W CON 05/27/2021 5:21 PM 3. CR XR FOOT RT MIN 3V 07/12/2021 1:39 PM FINDINGS: Bones/joints: The great toe is surgically absent. There is no evidence of osteomyelitis involving the first metatarsal head. The second metatarsal head is sclerotic and fragmented. There is also fragmentation involving the dorsal aspect of the second toe proximal phalanx. The well-defined and sclerotic appearance of the bone fragmentation suggests a chronic finding such as severe Freiberg's infraction with neuropathic arthropathy, as opposed to osteomyelitis. Bone destruction at the second metatarsophalangeal joint is new compared with 07/12/2021. The second toe proximal phalanx is dorsally subluxed. A small accessory bone is present between the first and second metatarsal bases (os intermetatarseum). Soft tissues: There is irregularity of the skin surface along the plantar forefoot at the level of the third metatarsophalangeal joint which suggests ulceration. There is severe underlying soft tissue edema without gas or a focal fluid density collection to suggest an abscess. Diffuse soft tissue edema suggests cellulitis. The foot muscles demonstrate moderate to severe atrophy suggesting denervation changes likely secondary to diabetic microangiopathy. IMPRESSION: 1. Interval development of chronic-appearing osseous fragmentation involving the second metatarsophalangeal joint with dorsal subluxation of the second toe. Neuropathic arthropathy, potentially with Freiberg's infraction, is favored over osteomyelitis. 2. Surgically absent great toe without evidence of osteomyelitis involving the first metatarsal head. 3. Ulcer along the plantar forefoot without underlying abscess or soft tissue gas.
--- NOTE | 2022-07-06 05:23 | CT_ITS ---
PROCEDURE INFORMATION: Exam: CT Left Lower Extremity Without Contrast, Foot Exam date and time: 07/06/2022 5:33 AM Age: 42 years old Clinical indication: Pain; Foot; Bilateral; Additional info: Bilateral foot pain TECHNIQUE: Imaging protocol: CT of the left lower extremity without contrast was performed. Exam focused on the foot. Radiation optimization: All CT scans at this facility use at least one of these dose optimization techniques: automated exposure control; mA and/or kV adjustment per patient size (includes targeted exams where dose is matched to clinical indication); or iterative reconstruction. REPORTING DATA: Count of CT and Cardiac NM exams in prior 12 months: This patient has received 2 known CTs and 0 known cardiac nuclear medicine studies in the 12 months prior to the current study. COMPARISON: No relevant prior studies available. FINDINGS: Bones/joints: There is no evidence of osteomyelitis. There is no acute fracture or dislocation. No aggressive bone lesions are present. Benign bone islands are incidentally noted. There are minimal dorsal and plantar calcaneal enthesophytes. There is mild apex medial angulation of the fourth and fifth metatarsal necks that could represent healed fractures. Flexion deformities involve the lesser toes. Moderate hallux valgus is associated with a moderate bunion deformity. Soft tissues: A soft tissue ulcer involves the plantar aspect of the forefoot at the level of the third metatarsophalangeal joint. There is prominent soft tissue edema in this region presumed to represent infected soft tissue. There is no gas or fluid density collection to suggest a discrete drainable abscess. The foot muscles demonstrate moderate to severe atrophy suggesting denervation changes likely secondary to diabetic microangiopathy. IMPRESSION: 1. Ulcer along the plantar forefoot without underlying abscess or osteomyelitis. 2. None-acute findings, as above.
[2022-07-06 05:26] LABS: Coronavirus 19, PCR Not Detected (NotDetected); Influenza A, PCR Not Detected (NotDetected); Influenza B, PCR Not Detected (NotDetected)
[2022-07-06 05:29] LABS: Chloride 99 mmol/L (98-107); Potassium 3.8 mmoL/L (3.5-5.1); Sodium 135 mmol/L (136-145)
[2022-07-06 05:32] LABS: Alanine Aminotransferase 81 U/L (12-78); Albumin Level 3.6 g/dl (3.5-5.0); Albumin/Globulin Ratio 1.2 (1.1-1.8); Alkaline Phosphatase 104 U/L (38-126); Anion Gap 6.8 mEq/L (5-15); Aspartate Amino Transferase 105 U/L (17-59); Bilirubin,Total 0.8 mg/dl (0.2-1.3); Blood Urea Nitrogen 14 mg/dl (9-20); Carbon Dioxide 33 mmol/L (22.0-30.0); Creatinine Clearance Estimated 142 mL/min (50-200); Estimated Glomerular Filt Rate 82 ml/min (>60); GFR (African American) 99 ML/MIN (>60); Globulin 3.1 g/dL (1.3-3.2); Total Protein,Serum 6.7 g/dl (6.3-8.2)
[2022-07-06 05:33] LABS: Calcium 8.5 mg/dl (8.4-10.2); Glucose 150 mg/dl (74-100)
[2022-07-06 05:42] LABS: NT Pro Brain Natriuretic Pep. 163 pg/mL (0-125)
[2022-07-06 05:45] LABS: Basophils # 0.1 K/mm3 (0-0.2); Basophils % 0.7 % (0.1-2.0); Eosinophils # 0.6 K/mm3 (0.0-0.4); Eosinophils % 4.9 % (0.1-12.0); Hematocrit 38.6 % (42.0-52.0); Hemoglobin 12.4 g/dL (14.1-18.0); Lymphocytes # 1.2 K/mm3 (0.7-4.5); Lymphocytes % 10.3 % (10-50); Mean Corpuscular HGB Conc 32.2 g/dL (31.8-35.4); Mean Corpuscular Hemoglobin 29.7 pg (27.0-31.2); Mean Corpuscular Volume 92.4 fl (80-94); Mean Platelet Volume 7.6 fl (7.4-10.4); Monocytes # 0.9 K/mm3 (0.1-1.0); Monocytes % 7.5 % (1.7-9.3); Neutrophils # 8.8 K/mm3 (1.8-7.8); Neutrophils % 76.5 % (37.0-80.0); Platelet Count 245 K/mm3 (142-424); Red Blood Count 4.18 M/mm3 (4.60-6.20); Red Cell Distribution Width 14.5 % (11.5-17.5); White Blood Count 11.5 K/mm3 (4.8-10.8)
[2022-07-06 06:04] LABS: Hemoglobin A1C 5.8 % (4.0-6.0)
[2022-07-06 06:10] LABS: Lactic Acid 0.9 mmol/L (0.7-2.1)
[2022-07-06 07:29] LABS: Magnesium 2.1 mg/dl (1.6-2.3)
--- NOTE | 2022-07-06 07:29 | HMH.EDSKAF ---
Discharge Plan Disposition Patient Disposition: Home, Self-Care Prescriptions Prescriptions: New cephalexin [cephalexin] 500 mg capsule 500 mg PO TID Qty: 30 0RF clindamycin HCl 300 mg capsule 300 mg PO Q8H 10 Days Qty: 30 0RF No Action buprenorphine-naloxone 1 EACH film 2 each SL DAILY metformin 500 MG tablet 500 mg PO BIDWMEAL Referrals Follow up/Referrals: Reagan Arshad [Primary Care Provider] - See instructions Pati Chandler DPM [Staff Physician] - See instructions Clinical Impressions Clinical Impression: SIRS (systemic inflammatory response syndrome), Tobacco use, Cellulitis of right foot, Diabetes Instructions Patient Instructions: Cellulitis Discharge ED Provider: Nghia (ED)Brent Skin/Abscess/FB HPI General Chief complaint: Skin/Abscess/Foreign Body Stated complaint: Bilateral leg and feet swelling; nausea Time Seen by Provider: 07/06/22 07:29 Mode of Arrival: Family Vehicle Source of Information: Patient Limitations: No Limitations Description of Symptoms (Recalled from ER Triage Doc. by RN): Pt c/o bilat foot pain with numbness, body aches, headache, increased swelling to BLE, and diabetic foot ulcers. Pt has a hx of osteomyelitis and R great toe amputation about 1 yr ago at this facility. Wounds noted to BLE. Pt reports the swelling has been present for 2 days. Pedal pulses are WNL and [employer] < 3 seconds. Pt reports he was being seen by a provider at [facility] and last visit was about 1 mn ago. Pt has not checked his blood sugar in some time. History of Present Illness HPI narrative: pt with ongoing issues with bilat lower ext and feet and has hx of diabetes and tob use - has hx of amputation - has been not seen recently by podiatry or pcp Onset (ago): day(s) Location: L foot and R foot Severity: moderate Consistency: intermittent Related Data Home Medications Medication Instructions Recorded Confirmed buprenorphine 8 mg-naloxone 2 mg 2 each SL DAILY WITHDRAWAL 02/08/21 07/06/22 sublingual film metformin 500 mg tablet 500 mg PO BIDWMEAL Diabetes 07/06/22 07/06/22 Previous Rx's Medication Instructions Recorded cephalexin 500 mg capsule 500 mg PO TID #30 caps 07/06/22 clindamycin HCl 300 mg capsule 300 mg PO Q8H 10 days #30 caps 07/06/22 Allergies Allergy/AdvReac Type Severity Reaction Status Date / Time Penicillins [PENICILLINS] Allergy Intermediate Verified 04/25/21 14:12 [facility] Disclaimer: The information contained in this section may have been updated after the patient was seen, as this information can be updated by other users. Social History Smoking Status: Current some day smoker tobacco type: cigarettes packs per day: 1 second hand exposure: No alcohol intake: never substance use type: former substance user, amphetamines and painkillers current occupational status: employed Travel in the last 8 weeks: None current occupational exposures/hazards: No caffeine: Yes ROS Obtained: Yes All systems reviewed & no additional complaints except as documented Physical Exam General General appearance: alert Head Head exam: normocephalic Eye Eye exam: Present PERRL and EOMI ENT ENT exam: Present mucous membranes moist Neck Neck exam: Absent trachea midline Respiratory Respiratory exam: Absent respiratory distress Cardiovascular Cardiovascular exam: Present regular rate Abdominal Exam Abdominal exam: Present soft Expanded Lower Extremity Exam bilat : Foot/toe exam: Present other (chronic changes noted to bilat feet with no open areas and no odor - pp ok) Neurovascular/Tendon exam: Present sensory deficit; Absent pulse deficit Neurological Exam Neurological exam: Present alert, oriented X3 and CN II-XII intact Psychiatric Psychiatric exam: Present normal affect Skin Skin exam: Absent rash Medical Decision Making Medical Records Medical records reviewed: Yes I reviewed the patient's medical
--- NOTE | 2022-07-06 07:30 | PC.NURSE ---
Assumed pt care. No complaints at this time. Pt updated plan of care.
--- NOTE | 2022-07-06 08:01 | PC.NURSE ---
Phoned radiology for preliminary/final reports.
--- NOTE | 2022-07-06 08:08 | PC.NURSE ---
VO received by Dr. Agrawal for additional 1L NS bolus. NS initiated.
[2022-07-06 08:21] LABS: Erythrocyte Sedimentation Rate 86 mm/hr (0-15)
[2022-07-06 08:33] LABS: C-Reactive Protein 143.7 mg/L (0-4)
== END 2022-07-06 09:35 | disposition home or self-care (01) ==
PROVIDERS: Emergency Provider Emergency Medicine; PCP Internal Medicine
DX: L03.115 Cellulitis of right lower limb; E11.621 Type 2 diabetes mellitus with foot ulcer; L97.519 Non-pressure chronic ulcer of other part of right foot with unspecified severity
CPT/HCPCS: 71046; 73700; 80053; 83036; 83605; 83735; 83880; 85025; 85651; 86140; 87040; 87077; 87186; 96360; 96374; 99284; 99285; C9803; J0131; J0696; U0003; U0005

== ENCOUNTER 2022-07-10 20:54 | Inpatient (IN) | payer OTHER, SELFPAY ==
[2022-07-10 20:55] VITALS: BP 142/72; PULSE 102; RESP 21; TEMP 36.9; O2SAT 96; BMI 32.1
[2022-07-10 22:09] LABS: Alanine Aminotransferase 39 U/L (12-78); Albumin Level 3.5 g/dl (3.5-5.0); Albumin/Globulin Ratio 1.1 (1.1-1.8); Alkaline Phosphatase 159 U/L (38-126); Anion Gap 4.7 mEq/L (5-15); Aspartate Amino Transferase 29 U/L (17-59); Bilirubin,Total 0.6 mg/dl (0.2-1.3); Blood Urea Nitrogen 8 mg/dl (9-20); Calcium 8.4 mg/dl (8.4-10.2); Carbon Dioxide 33 mmol/L (22.0-30.0); Chloride 97 mmol/L (98-107); Creatinine Clearance Estimated 158 mL/min (50-200); Estimated Glomerular Filt Rate 93 ml/min (>60); GFR (African American) 112 ML/MIN (>60); Globulin 3.3 g/dL (1.3-3.2); Glucose 117 mg/dl (74-100); Potassium 3.7 mmoL/L (3.5-5.1); Sodium 131 mmol/L (136-145); Total Protein,Serum 6.8 g/dl (6.3-8.2)
[2022-07-10 22:13] LABS: Basophils # 0.1 K/mm3 (0-0.2); Basophils % 0.6 % (0.1-2.0); Eosinophils # 0.6 K/mm3 (0.0-0.4); Eosinophils % 4.7 % (0.1-12.0); Hematocrit 34.6 % (42.0-52.0); Hemoglobin 11.3 g/dL (14.1-18.0); Lymphocytes # 2.7 K/mm3 (0.7-4.5); Lymphocytes % 22.3 % (10-50); Mean Corpuscular HGB Conc 32.8 g/dL (31.8-35.4); Mean Corpuscular Hemoglobin 29.2 pg (27.0-31.2); Mean Corpuscular Volume 89.3 fl (80-94); Neutrophils # 7.8 K/mm3 (1.8-7.8); Neutrophils % 64.4 % (37.0-80.0); Platelet Count 430 K/mm3 (142-424); Red Blood Count 3.87 M/mm3 (4.60-6.20); Red Cell Distribution Width 14.3 % (11.5-17.5); White Blood Count 12.1 K/mm3 (4.8-10.8)
[2022-07-10 22:14] LABS: C-Reactive Protein 120.9 mg/L (0-4)
[2022-07-10 22:20] LABS: NT Pro Brain Natriuretic Pep. 215 pg/mL (0-125)
[2022-07-10 22:26] LABS: Lactic Acid 0.8 mmol/L (0.7-2.1)
[2022-07-10 22:27] VITALS: BP 122/72; PULSE 82; RESP 18; O2SAT 95
[2022-07-10 22:27] LABS: Procalcitonin 0.186 ng/mL (0.0-2.0)
[2022-07-10 22:30] VITALS: BP 131/73; PULSE 80; RESP 20; O2SAT 96
[2022-07-10 22:49] LABS: Erythrocyte Sedimentation Rate > 140 mm/hr (0-15)
[2022-07-11] VITALS (7 sets, daily range): BP systolic 114–140; BP diastolic 59–83; PULSE 75–91; RESP 17–20; TEMP 36.4–37.1; O2SAT 93–99; BMI 35.4
--- NOTE | 2022-07-11 00:53 | HMH.EDSKAF ---
Discharge Plan Disposition Patient Disposition: Admitted As Inpatient Clinical Impressions Clinical Impression: Diabetes, SIRS (systemic inflammatory response syndrome), Neuropathy, Diabetes mellitus with foot ulcer and gangrene, Tobacco use, Obesity (BMI 30-39.9) Discharge ED Provider: Nghia (ED)Brent Skin/Abscess/FB HPI General Chief complaint: Skin/Abscess/Foreign Body Stated complaint: Right leg swollen, no accident Time Seen by Provider: 07/11/22 00:53 Mode of Arrival: Family Vehicle Source of Information: Patient Limitations: No Limitations Description of Symptoms (Recalled from ER Triage Doc. by RN): Pt c/o RLE swelling and worsening infection. States he was seen here on 07/06 and received IV & oral antibiotics (Keflex & Clindamycin). States he has been taking the antibiotics as prescribed however he feels the swelling and infection is worse. He also continues to c/o nausea. Denies fever or chills. He has a h/o osteomylytis and previous R great toe amputation by Dr. Chandler. He reports he attempted to call her office t/o the day without any response. History of Present Illness HPI narrative: py with hx of progressive swelling and infection to rt lower ext with odor - pt with recent ed visit but now worse - has been compliant with meds but has not seen pcp- has hx of diabetes and tob use MD complaint: other (foot infection ) Onset (ago): day(s) Tetanus up to date: unsure Location: L foot and R foot Severity: severe Associated symptoms: denies other symptoms Treatments prior to arrival: antibiotic Related Data Home Medications Medication Instructions Recorded Confirmed buprenorphine 8 mg-naloxone 2 mg 2 each SL DAILY WITHDRAWAL 02/08/21 07/10/22 sublingual film metformin 500 mg tablet 500 mg PO BIDWMEAL Diabetes 07/06/22 07/10/22 cephalexin 500 mg capsule 500 mg PO TID foot abx 07/10/22 07/10/22 clindamycin HCl 300 mg capsule 300 mg PO Q8H foot abx 07/10/22 07/10/22 Allergies Allergy/AdvReac Type Severity Reaction Status Date / Time Penicillins [PENICILLINS] Allergy Intermediate Rash Verified 07/10/22 21:24 morphine AdvReac Severe hallucinati Verified 07/10/22 21:24 ons PFSH PFS Disclaimer: The information contained in this section may have been updated after the patient was seen, as this information can be updated by other users. Medical History Right great toe amputee Surgical History (Updated 07/10/22 @ 21:23 by Nneka Rodney RN) Hx of cholecystectomy Hx of tonsillectomy Social History Smoking Status: Current every day smoker tobacco type: cigarettes packs per day: 1 second hand exposure: No alcohol intake: never substance use type: former substance user, amphetamines and painkillers current occupational status: employed Travel in the last 8 weeks: None current occupational exposures/hazards: No caffeine: Yes ROS Obtained: Yes All systems reviewed & no additional complaints except as documented Physical Exam General General appearance: alert Head Head exam: normocephalic Eye Eye exam: Present PERRL and EOMI ENT ENT exam: Present mucous membranes dry Neck Neck exam: Present trachea midline Respiratory Respiratory exam: Present normal lung sounds bilaterally; Absent respiratory distress Cardiovascular Cardiovascular exam: Present regular rate and systolic murmur Abdominal Exam Abdominal exam: Present soft Expanded Lower Extremity Exam Right: Foot/toe exam: Present tenderness, erythema and other (has odor and appears much different than prev ); Absent full ROM Neurovascular/Tendon exam: Present sensory deficit; Absent pulse deficit Neurological Exam Neurological exam: Present alert and CN II-XII intact Skin Skin exam: Present other (inc cellulitis rt foot ) Medical Decision Making Medical Records Medical records reviewed: Yes I reviewed the patient's medical records. Jose M Zavalai
--- NOTE | 2022-07-11 01:16 | EXP.HP ---
History of Present Illness *Admission Date: 07/11/22 *Reason for visit:: Right foot pain *History of present illness: this is a 42-year-old male with a past medical history of diabetes, chronic ulcers of bilateral feet, drug abuse on Suboxone who presents to the emergency department today with complaints of worsening right lower extremity edema and erythema. Patient was seen on 07/06/2022 for similar complaint. Per ER provider, at that time patient had mild redness and no odor to wound. Today he presents with worsening redness of the right lower extremity and now odiferous wound with minimal drainage. Patient states he has been compliant with his outpatient antibiotics but has had worsening pain and redness since yesterday. He denies any fever or any trauma to the extremity. he reports prior amputation of toe approximately [address] Chandler Emergency department work-up significant for elevated inflammatory markers. Mild leukocytosis noted with a white blood cell count of 12 . Other lab work unremarkable. CT scan on without evidence of osteomyelitis. internal medicine was consulted for admission and will be admitted to the hospital service for further evaluation and. [facility] Disclaimer: The information contained in this section may have been updated after the patient was seen, as this information can be updated by other users. Medical History (Updated 07/11/22 @ 03:[address] RN) Congenital absence of one kidney Diabetes mellitus, type 2 Right great toe amputee Surgical History Hx of cholecystectomy Hx of tonsillectomy Social History (Updated 07/11/22 @ 03:[address] RN) Smoking Status: Current every day smoker tobacco type: cigarettes packs per day: 1 second hand exposure: No alcohol intake: never substance use type: former substance user, amphetamines, painkillers and methamphetamine current occupational status: employed Travel in the last 8 weeks: None current occupational exposures/hazards: No caffeine: Yes Review of Systems Review of Systems Review of systems:: pertinent systems reviewed and negative unless documented below Constitutional Constitutional: Reports system reviewed and no additional complaints, except as documented *Cardiovascular Cardiovascular: Reports system reviewed and no additional complaints, except as documented *Respiratory Respiratory: Reports system reviewed and no additional complaints, except as documented *Gastrointestinal Gastrointestinal: Reports system reviewed and no additional complaints, except as documented *Genitourinary Genitourinary: Reports system reviewed and no additional complaints, except as documented *Musculoskeletal Musculoskeletal: Reports radiating pain into limb Integumentary/Breasts Comments: Erythema noted to the right lower extremity across the dorsum of the foot and circumferential to mid wang. Prior amputation of great toe with sloughing of skin. Meds Home Medications and Allergies Home Medications Medication Instructions Recorded Confirmed Type buprenorphine 8 mg-naloxone 2 mg 2 each SL DAILY WITHDRAWAL 02/08/21 07/11/22 History sublingual film metformin 500 mg tablet 500 mg PO BIDWMEAL Diabetes 07/06/22 07/11/22 History cephalexin 500 mg capsule 500 mg PO TID foot abx 07/10/22 07/11/22 History clindamycin HCl 300 mg capsule 300 mg PO Q8H foot abx 07/10/22 07/11/22 History New Prescriptions to Start Prescriptions: Allergies Allergy/AdvReac Type Severity Reaction Status Date / Time Penicillins [PENICILLINS] Allergy Intermediate Rash Verified 07/10/22 21:24 morphine AdvReac Severe hallucinati Verified 07/10/22 21:24 ons Exam Data for Last 24 hours Vital signs and Labs for Last 24 Hours: Temp Pulse Resp BP Pulse Ox 98.5 F 80 20 131/73 96 07/10/22 20:55 07/10/22 22:30 07/10/22 22:3
--- NOTE | 2022-07-11 01:28 | PC.NURSE ---
Admissions notified of admit at this time. Pt assigned to room 211.
--- NOTE | 2022-07-11 02:10 | PC.NURSE ---
Called report to Victoria Vora RN
--- NOTE | 2022-07-11 02:25 | PC.NURSE ---
PT ARRIVED TO FLOOR AT 2:25 AM
[2022-07-11 02:27] LABS: Coronavirus 19, PCR Not Detected (NotDetected); Influenza A, PCR Not Detected (NotDetected); Influenza B, PCR Not Detected (NotDetected)
[2022-07-11 05:18] LABS: POC Glucose,Bedside 172 (70-110)
--- NOTE | 2022-07-11 06:11 | PC.NURSE ---
Pt has not voiced any c/o pain to staff. Right foot remains red with 2+ edema. Foul smelling yellow drainage noted, See wound note. Call light within reach.
[2022-07-11 07:02] LABS: Basophils % 0.3 % (0.1-2.0); Eosinophils % 0.4 % (0.1-12.0); Hematocrit 37.1 % (42.0-52.0); Hemoglobin 11.8 g/dL (14.1-18.0); Lymphocytes # 1.1 K/mm3 (0.7-4.5); Lymphocytes % 13.9 % (10-50); Mean Corpuscular HGB Conc 31.9 g/dL (31.8-35.4); Mean Corpuscular Hemoglobin 28.6 pg (27.0-31.2); Mean Corpuscular Volume 89.8 fl (80-94); Mean Platelet Volume 7.9 fl (7.4-10.4); Monocytes # 0.1 K/mm3 (0.1-1.0); Monocytes % 1.4 % (1.7-9.3); Neutrophils # 6.8 K/mm3 (1.8-7.8); Platelet Count 471 K/mm3 (142-424); Red Blood Count 4.13 M/mm3 (4.60-6.20); Red Cell Distribution Width 14.3 % (11.5-17.5); White Blood Count 8.1 K/mm3 (4.8-10.8)
[2022-07-11 07:05] LABS: Chloride 99 mmol/L (98-107); Potassium 4.5 mmoL/L (3.5-5.1); Sodium 137 mmol/L (136-145)
[2022-07-11 07:07] LABS: Blood Urea Nitrogen 8 mg/dl (9-20)
[2022-07-11 07:08] LABS: Anion Gap 11.5 mEq/L (5-15); Calcium 8.4 mg/dl (8.4-10.2); Carbon Dioxide 31 mmol/L (22.0-30.0); Creatinine Clearance Estimated 196 mL/min (50-200); Estimated Glomerular Filt Rate 106 ml/min (>60); GFR (African American) 128 ML/MIN (>60); Glucose 171 mg/dl (74-100)
--- NOTE | 2022-07-11 07:49 | HMH.PHAINT1 ---
Pharmacy Intervention Comments: Reconciled patient's home medications using pharmacy fill history and patient interview.
--- NOTE | 2022-07-11 08:27 | CT_ITS ---
FINAL REPORT CLINICAL HISTORY: cellulitis COMPARISON: July 06, 2022 FINDINGS: CT LOWER EXTREMITY W & W/O CONTRAST Axial CT images were performed through the right foot before and after administration of intravenous contrast. Coronal and sagittal reformatted images were submitted. This study was performed with techniques to keep radiation doses as low as reasonably achievable, (ALARA). Individualized dose reduction techniques using automated exposure control or adjustment of mA and/or kV according to the patient's size were employed. There are postoperative changes from amputation of the great toe. There is fragmentation of the distal 2nd metatarsal and proximal aspect of the 2nd proximal phalanx. There is cortical thickening of the 2nd metatarsal that may be reactive or due to prior fracture. There are mild degenerative changes. There is soft tissue edema or cellulitis of the forefoot. There is soft tissue enhancement of the plantar forefoot. There is a presumed soft tissue defect of the plantar forefoot. There is musculature atrophy. There is widespread edema. IMPRESSION: Findings favored to be related to osteomyelitis/septic arthritis with bony fragmentation in the region of the 2nd MTP joint. Follow-up CT or MRI may be helpful. Reviewed, Interpreted and Dictated by Sravan Madison III, MD Transcribed by Yuniel Garcia Authenticated and [facility]
--- NOTE | 2022-07-11 08:29 | EXP.PHA.CONS ---
Pharmacy Consult Date: 07/11/22 Time: 08:29 Referring provider: DR CASTILLO MARIE Reason for Consult:: VANCOMYCIN DOSING CONSULT Allergies Allergy/AdvReac Type Severity Reaction Status Date / Time Penicillins [PENICILLINS] Allergy Intermediate Rash Verified 07/10/22 21:24 morphine AdvReac Severe hallucinati Verified 07/10/22 21:24 ons Home Medications Medication Instructions Recorded Confirmed Type buprenorphine 8 mg-naloxone 2 mg 2 each SL DAILY WITHDRAWAL 02/08/21 07/11/22 History sublingual film metformin 500 mg tablet 500 mg PO BIDWMEAL Diabetes 07/06/22 07/11/22 History cephalexin 500 mg capsule 500 mg PO TID foot abx 07/10/22 07/11/22 History clindamycin HCl 300 mg capsule 300 mg PO Q8H foot abx 07/10/22 07/11/22 History New Prescriptions to Start Prescriptions: Height: 1.8 m Weight: 115.014 kg Laboratory Results:: Laboratory Results - last 24 hr 07/10/22 21:52: WBC 12.1 H, RBC 3.87 L, Hgb 11.3 L, Hct 34.6 L, MCV 89.3, MCH 29.2, MCHC 32.8, RDW 14.3, Plt Count 430 H, MPV 8.0, Neut % (Auto) 64.4, Lymph % (Auto) 22.3, Edmunds % (Auto) 8.0, Eos % (Auto) 4.7, Baso % (Auto) 0.6, Neut # (Auto) 7.8, Lymph # (Auto) 2.7, Edmunds # (Auto) 1.0, Eos # (Auto) 0.6 H, Baso # (Auto) 0.1, ESR > 140 H 07/10/22 21:52: Sodium 131 L, Potassium 3.7, Chloride 97 L, Carbon Dioxide 33 H, Anion Gap 4.7 L, BUN 8 L, Creatinine 0.90, Estimated Creat Clear 158, Estimated GFR 93, Est GFR ( Amer) 112, Glucose 117 H, Calcium 8.4, Total Bilirubin 0.6, AST 29, ALT 39, Alkaline Phosphatase 159 H, C-Reactive Protein 120.9 H, NT-Pro-B Natriuret Pep 215 H, Total Protein 6.8, Albumin 3.5, Globulin 3.3 H, Albumin/Globulin Ratio 1.1, Procalcitonin 0.186 07/10/22 21:52: Lactate 0.8 07/11/22 02:00: SARS-CoV-2 (PCR) Not detected, Influenza A Untype (PCR) Not detected, Influenza Type B (PCR) Not detected 07/11/22 05:11: POC Glucose 172 H 07/11/22 06:52: WBC 8.1 D, RBC 4.13 L, Hgb 11.8 L, Hct 37.1 L, MCV 89.8, MCH 28.6, MCHC 31.9, RDW 14.3, Plt Count 471 H, MPV 7.9, Neut % (Auto) 84.0 H, Lymph % (Auto) 13.9, Edmunds % (Auto) 1.4 L, Eos % (Auto) 0.4, Baso % (Auto) 0.3, Neut # (Auto) 6.8, Lymph # (Auto) 1.1, Edmunds # (Auto) 0.1, Eos # (Auto) 0.0, Baso # (Auto) 0.0 07/11/22 06:52: Sodium 137, Potassium 4.5 D, Chloride 99, Carbon Dioxide 31 H, Anion Gap 11.5, BUN 8 L, Creatinine 0.80, Estimated Creat Clear 196, Estimated GFR 106, Est GFR ( Amer) 128, Glucose 171 H D, Calcium 8.4 Medical History: Medical History (Updated 07/11/22 @ 03:[address] RN) Congenital absence of one kidney Diabetes mellitus, type 2 Right great toe amputee Assessment and Plan Assessment and plan all Dx Assessment and Plan for all problems:: Objective: Age: 42 yo Serum creatinine: 0.8 mg/dL Height: 70.9 Inches Weight (kg): 115 Diagnosis: CELLULITIS Assessment: IBW (kg): 75.07 Dosing wt(kg): 91.0 Estimated Creatinine clearance (ml/min): 127.7 CRCL method: Cockcroft and Gault using ibw(default). Drug selected: Vancomycin Loading dose (mg): 2000 MG Vd (liters): 59.1 (factor used: 0.65 L/kg) Regan (hr-1): 0.110 Half life (hrs): 6.30 CLvanco=?? 6.501 L/hr Recommended dose: 1750 mg Interval: 12 hrs Infusion time (hrs): 2.0 Predicted peak (mcg/mL): 36.3 Predicted trough (mcg/mL): 12.08 Adjusted body weight was selected for vancomycin dosing. Recommendations: Give Vancomycin 1750 mg q 12 hrs with an expected Cpeak of 36.3 mcg/ml and an expected Ctrough of 12.08 mcg/ml TO START 07/11/22 AT 15:00. AUC 0-24 /FRIEDA Data: FRIEDA 0.5 mcg/mL:?? AUC/FRIEDA:? 1076.8 FRIEDA 1.0 mcg/mL:?? AUC/FRIEDA:? 538.4 --------- FRIEDA 1.5 mcg/mL:?? AUC/FRIEDA:? 358.9 FRIEDA 2.0 mcg/mL:?? AUC/FRIEDA:? 269.2 Thank you for the consult
[2022-07-11 11:31] LABS: POC Glucose,Bedside 146 (70-110)
--- NOTE | 2022-07-11 12:04 | EXP.ORTH.CON ---
History of Present Illness *Admission Date: 07/11/22 *History of present illness: this is a 42-year-old male with a past medical history of diabetes, chronic ulcers of bilateral feet, drug abuse on Suboxone who presents to the emergency department today with complaints of worsening right lower extremity edema and erythema. Patient was seen on 07/06/2022 for similar complaint. Per ER provider, at that time patient had mild redness and no odor to wound. Today he presents with worsening redness of the right lower extremity and now odiferous wound with minimal drainage. Patient states he has been compliant with his outpatient antibiotics but has had worsening pain and redness since yesterday. He denies any fever or any trauma to the extremity. he reports prior amputation of toe approximately [address] Chandler Emergency department work-up significant for elevated inflammatory markers. Mild leukocytosis noted with a white blood cell count of 12 . Other lab work unremarkable. CT scan on without evidence of osteomyelitis. internal medicine was consulted for admission and will be admitted to the hospital service for further evaluation Ortho consulted for treatment options. [facility] Disclaimer: The information contained in this section may have been updated after the patient was seen, as this information can be updated by other users. Medical History Congenital absence of one kidney Diabetes mellitus, type 2 Right great toe amputee Surgical History Hx of cholecystectomy Hx of tonsillectomy Social History Smoking Status: Current every day smoker tobacco type: cigarettes packs per day: 1 second hand exposure: No alcohol intake: never substance use type: former substance user, amphetamines, painkillers and methamphetamine current occupational status: employed Travel in the last 8 weeks: None current occupational exposures/hazards: No caffeine: Yes Meds Home Medications and Allergies Home Medications Medication Instructions Recorded Confirmed Type buprenorphine 8 mg-naloxone 2 mg 2 each SL DAILY WITHDRAWAL 02/08/21 07/11/22 History sublingual film metformin 500 mg tablet 500 mg PO BIDWMEAL Diabetes 07/06/22 07/11/22 History cephalexin 500 mg capsule 500 mg PO TID foot abx 07/10/22 07/11/22 History clindamycin HCl 300 mg capsule 300 mg PO Q8H foot abx 07/10/22 07/11/22 History New Prescriptions to Start Prescriptions: Allergies Allergy/AdvReac Type Severity Reaction Status Date / Time Penicillins [PENICILLINS] Allergy Intermediate Rash Verified 07/10/22 21:24 morphine AdvReac Severe hallucinati Verified 07/10/22 21:24 ons Ortho Exam (Inpt) Vital signs and Labs for Last 24 Hours: Temp Pulse Resp BP Pulse Ox 97.5 F L 75 18 120/72 96 07/11/22 11:23 07/11/22 11:23 07/11/22 11:23 07/11/22 11:23 07/11/22 11:23 Laboratory Results - last 24 hr 07/10/22 21:52: WBC 12.1 H, RBC 3.87 L, Hgb 11.3 L, Hct 34.6 L, MCV 89.3, MCH 29.2, MCHC 32.8, RDW 14.3, Plt Count 430 H, MPV 8.0, Neut % (Auto) 64.4, Lymph % (Auto) 22.3, [place] % (Auto) 8.0, Eos % (Auto) 4.7, Baso % (Auto) 0.6, Neut # (Auto) 7.8, Lymph # (Auto) 2.7, [place] # (Auto) 1.0, Eos # (Auto) 0.6 H, Baso # (Auto) 0.1, ESR > 140 H 07/10/22 21:52: Sodium 131 L, Potassium 3.7, Chloride 97 L, Carbon Dioxide 33 H, Anion Gap 4.7 L, BUN 8 L, Creatinine 0.90, Estimated Creat Clear 158, Estimated GFR 93, Est GFR ( Amer) 112, Glucose 117 H, Calcium 8.4, Total Bilirubin 0.6, AST 29, ALT 39, Alkaline Phosphatase 159 H, C-Reactive Protein 120.9 H, NT-Pro-B Natriuret Pep 215 H, Total Protein 6.8, Albumin 3.5, Globulin 3.3 H, Albumin/Globulin Ratio 1.1, Procalcitonin 0.186 07/10/22 21:52: Lactate 0.8 07/11/22 02:00: SARS-CoV-2 (PCR) Not detected, Influenza A Untype (PC
--- NOTE | 2022-07-11 14:16 | PC.NURSE ---
patient has been out of bed several times today, walking around room and to restroom.
--- NOTE | 2022-07-11 18:46 | PC.NURSE ---
Patient to be NPO after midnight for wound clean out and possible VAC with ortho tomorrow.
[2022-07-11 20:45] LABS: POC Glucose,Bedside 138 (70-110)
[2022-07-12] VITALS (15 sets, daily range): BP systolic 118–133; BP diastolic 54–78; PULSE 70–91; RESP 15–18; TEMP 36.3–43; O2SAT 93–97; BMI 35.4
--- NOTE | 2022-07-12 05:02 | PC.NURSE ---
No changes during the night.
[2022-07-12 05:15] LABS: POC Glucose,Bedside 153 (70-110)
[2022-07-12 06:33] LABS: MANUAL DIFFERENTIAL MANUAL DIFFERENTIAL (MANUAL DIFF)
[2022-07-12 06:43] LABS: Basophils % 0.4 % (0.1-2.0); Eosinophils # 0.1 K/mm3 (0.0-0.4); Monocytes # 0.8 K/mm3 (0.1-1.0)
[2022-07-12 06:44] LABS: Chloride 104 mmol/L (98-107); Potassium 3.9 mmoL/L (3.5-5.1); Sodium 138 mmol/L (136-145)
[2022-07-12 06:47] LABS: Anion Gap 7.9 mEq/L (5-15); Blood Urea Nitrogen 14 mg/dl (9-20); Carbon Dioxide 30 mmol/L (22.0-30.0); Creatinine Clearance Estimated 224 mL/min (50-200); Estimated Glomerular Filt Rate 124 ml/min (>60); GFR (African American) 150 ML/MIN (>60); Glucose 169 mg/dl (74-100)
[2022-07-12 06:57] LABS: Eosinophils % 0.5 % (0.1-12.0); Hematocrit 32.7 % (42.0-52.0); Lymphocytes % 27.4 % (10-50); Mean Corpuscular HGB Conc 31.5 g/dL (31.8-35.4); Mean Corpuscular Hemoglobin 29.1 pg (27.0-31.2); Mean Corpuscular Volume 92.4 fl (80-94); Mean Platelet Volume 7.7 fl (7.4-10.4); Monocytes % 7.1 % (1.7-9.3); Neutrophils % 64.6 % (37.0-80.0); Platelet Count 491 K/mm3 (142-424); Red Blood Count 3.54 M/mm3 (4.60-6.20); Red Cell Distribution Width 14.5 % (11.5-17.5); White Blood Count 10.9 K/mm3 (4.8-10.8)
[2022-07-12 07:08] LABS: Hemoglobin 10.3 g/dL (14.1-18.0)
[2022-07-12 07:46] LABS: Lymphocytes % 24 % (10-50); Monocytes % 8 % (2-9); Neutrophils % 68 % (42-76); Platelet Estimate Slight Increase; RBC Morphology Normal; Total Cells Counted 100
--- NOTE | 2022-07-12 10:22 | EXP.ORTH.PN ---
Subjective *Date: 07/12/22 *Time: 09:00 Interval history: Mr. Schwarz is a 42-year-old male patient with past medical history significant for diabetes, chronic ulcers of bilateral feet, drug abuse on Suboxone therapy admitted to the inpatient service at [facility] with concern for worsening right lower extremity edema and erythema. This morning the patient is sitting up comfortably in bed. He has been n.p.o. since midnight for anticipated surgery with Dr. Concepcion this afternoon. He denies any other symptoms or concerns at this time. Ortho Exam (Inpt) Vital signs and Labs for Last 24 Hours: Temp Pulse Resp BP Pulse Ox 97.5 F L 76 16 128/66 97 07/12/22 08:00 07/12/22 08:00 07/12/22 08:00 07/12/22 08:00 07/12/22 08:00 Laboratory Results - last 24 hr 07/11/22 11:22: POC Glucose 146 H 07/11/22 20:37: POC Glucose 138 H 07/12/22 05:08: POC Glucose 153 H 07/12/22 05:58: WBC 10.9 H D, RBC 3.54 L, Hgb 10.3 L D, Hct 32.7 L, MCV 92.4, MCH 29.1, MCHC 31.5 L, RDW 14.5, Plt Count 491 H, MPV 7.7, Neut % (Auto) 64.6, Lymph % (Auto) 27.4, [place] % (Auto) 7.1, Eos % (Auto) 0.5, Baso % (Auto) 0.4, Neut # (Auto) 7.0, Lymph # (Auto) 3.0, [place] # (Auto) 0.8, Eos # (Auto) 0.1, Baso # (Auto) 0.0, Total Counted 100, Neutrophils % (Manual) 68, Lymphocytes % (Manual) 24, Monocytes % (Manual) 8, Platelet Estimate Slight increase, RBC Morphology Normal 07/12/22 05:58: Sodium 138, Potassium 3.9, Chloride 104, Carbon Dioxide 30, Anion Gap 7.9, BUN 14 D, Creatinine 0.70, Estimated Creat Clear 224, Estimated GFR 124, Est GFR ( Amer) 150, Glucose 169 H, Calcium 8.0 L I & O for Labs for Last 24 Hours: Intake & Output 07/09/22 07/10/22 07/11/22 07/12/22 23:59 23:59 23:59 23:59 Intake Total 3755 / 3855 400 / 400 Output Total 0 / 0 0 / 0 Balance 3755 / 3855 400 / 400 Weight 230 lb 253 lb 8.505 oz 253 lb 8.505 oz Head: Present normocephalic and atraumatic Eyes: Present as per HPI ENT: Present normal exam Neck: Present normal inspection, full ROM and trachea midline; Absent lymphadenopathy Respiratory: Present normal respiratory effort, able to speak in complete sentences and symmetric chest movement; Absent accessory muscle use Cardiac: Present Reg Rate and Rhythm GI: Present soft; Absent tenderness Comment:: Upon examination of the right foot: Healed surgical scar over first toe amputation. There is ulceration on the plantar aspect under the second toe with mild drainage and foul smell. Skin: Present intact, warm and normal turgor; Absent cyanosis, erythema, lesions or jaundice Neuro: Present Cranial Nerve 2-12 Intact, Motor Function Intact, Sensory Function Intact, alert, awake, oriented x 3, tone normal and moves all extremities; Absent Numbness or Tingling Assessment and Plan *Assessment and plan (1) Ulcer of right foot due to type 2 diabetes mellitus: Status: Acute Category: Medical Code(s): E11.621 - Type 2 diabetes mellitus with foot ulcer; L97.519 - Non-pressure chronic ulcer of other part of right foot with unspecified severity Plan Patient is a 42-year-old male status post right great toe amputation approximately 1 year ago performed by Dr. Chandler with recurrent ulceration of the plantar aspect of his right foot under the second toe with drainage present in the webspace between the second and third toes. Dr. Concepcion has seen and evaluated the patient and recommended surgical intervention in the form of right foot debridement, +/- application of wound VAC +/- amputation of the second toe as needed. Plan for surgery this afternoon with Dr. Concepcion. The risk/benefits, alternatives, and expected perioperative course were discussed in detail with the patient. The patient is amenable to the plan and wishes to proceed. Continue n.p.o. status. Plan for surgery today in the form of right lower extremity irrigation, debridement, +/- amputation of second toe, +/- wound VAC application performed by Dr. Concepcion.
--- NOTE | 2022-07-12 10:49 | PC.NURSE ---
Patient walking in hallway.
--- NOTE | 2022-07-12 11:23 | ECG_ITS ---
APPROVED REPORT Exam: Resting ECG HR:79 bpm ECG Measurements Heart Rate 79 AXES NM 134 P 30 QRSd 110 QRS 54 QT 368 T 58 QTc 403 Conclusion SINUS RHYTHM NORMAL ECG UNCONFIRMED REPORT Electronically signed by : Benji Morris MD 07/14/2022 09:35:33
--- NOTE | 2022-07-12 11:59 | PC.NURSE ---
Patient gone to OR for procedure
--- NOTE | 2022-07-12 12:27 | CARE MANAGER ---
Discussed with patient possible needs for outpatient wound care and IV antibiotics. Patient states if those are warranted he could return here to the hospital. ELISHA Reyes
--- NOTE | 2022-07-12 12:28 | P.PN_ITS ---
[facility] Disclaimer: The information contained in this section may have been updated after the patient was seen, as this information can be updated by other users. Medical History Congenital absence of one kidney Diabetes mellitus, type 2 Right great toe amputee Surgical History Hx of cholecystectomy Hx of tonsillectomy Social History Smoking Status: Current every day smoker tobacco type: cigarettes packs per day: 1 second hand exposure: No alcohol intake: never substance use type: former substance user, amphetamines, painkillers and methamphetamine current occupational status: employed Travel in the last 8 weeks: None current occupational exposures/hazards: No caffeine: Yes [facility] Anesthesia Checklist Patient Identification Patient Identification: Arm Band Structural Data Admitted From: Home Planned Operative Procedure/s: I&D Right Foot, Possible 2nd Toe Amputation, Possible Wound Vac Consent for Planned Operative Procedure(s) Verified: Yes Verified Documents: Surgical Consent and History and Physical NPO Status Verified Time NPO: 00:00 Additional verifications Anesthesia Reactions: No Airway Assessment C-Spine Mobility Assessed: Yes TMJ Mobility Assessed: Yes Dentition: Good Dentition Neurological Assessment Level of Consciousness: Awake and Alert Anesthesia Plan Anesthesia Risk discussed: Yes Anesthesia Plan: Verified ASA Class: III Anesthesia Type: General
--- NOTE | 2022-07-12 13:59 | EXP.OP.NOTE ---
Date of procedure: 07/12/22 Pre-op Diagnosis:: Infected right diabetic foot wound Post-op Diagnosis:: Same Procedure performed:: 1. Irrigation and sharp debridement right foot diabetic foot wound 2. Placement of negative pressure wound VAC Surgeon:: Kt Concepcion DO DENTAL THERAPIST:: John Ernandez Anesthesia: GETA Estimated blood loss (mL): 0 Operative findings:: Infected plantar diabetic foot wound extending dorsally in the foot under the second toe Operative note:: Patient was identified preoperatively. Right lower extremity marked yes my initials. Taken the operating bed placed upon operating bed general anesthesia was administered and airway was secured. Right lower extremity was then prepped and draped with a Betadine drape. Once prepped and draped final operative timeout performed to identify proper patient procedure and extremity. Everyone involved the case agreed. There is no counter indications to beginning. He had been on continuous monitored antibiotics in the hospital. The foot wound was inspected and it was over the plantar aspect of the second metatarsal head. There is necrotic devitalized tissue in the bed of the wound. There was gross pus and purulence present tracking dorsally on the foot through the wound. Sharp debridement of all devitalized tissue in the base of the wound and around the edges of the wound was performed with a knife removal of all devitalized tissue was performed with a rongeur knife and curettes. There is tracking of the infection to the dorsum of the foot which was open and drained. Cultures were taken of this gross purulence. Copious irrigation of the wound performed with a Pulsavac. Care was taken again to remove all devitalized tissue in the base of the wound. Wound VAC was opened and selected. The wound VAC sponge was cut to the size of the wound. And the wound VAC dressing was placed and connected to confirm no leaks. Once this was completed patient is waken from anesthesia taken recovery in stable condition Condition: stable Disposition: PACU Complications:: None apparent
--- NOTE | 2022-07-12 14:00 | P.PNANES_ITS ---
[facility] Anesthesia Record Part I Anesthesia Record I Intake, IV Amount: 1,000 Estimated blood loss (mL): 5 Urine output (mL): 0 Blood Products used (#): none Blood Pressure: 127/76 SaO2: 94 Pulse Rate: 72 Respiratory Rate: 16 Temperature: 97.4 F Patient is:: Drowsy and Stable Stable to PACU at:: 14:00
[2022-07-12 14:14] LABS: POC Glucose,Bedside 104 (70-110)
--- NOTE | 2022-07-12 15:44 | EXP.ACUTE.PN ---
Subjective *Date: 07/12/22 *Time: 15:44 Interval history: No issues, OR today Medical Exam Vital signs and Labs for Last 24 Hours: Vital Signs Temp Pulse Pulse Pulse Resp BP BP 07/12/22 15:00 98.1 F 73 15 129/78 07/12/22 14:45 97.7 F 79 15 128/54 L 07/12/22 14:30 73 16 131/71 07/12/22 14:20 70 16 121/74 07/12/22 14:10 72 16 119/66 07/12/22 14:00 97.4 F L 72 16 127/76 07/12/22 11:15 98.0 F 79 18 07/12/22 08:00 97.5 F L 76 16 07/12/22 04:00 97.7 F 76 18 07/12/22 00:00 97.8 F 91 H 18 07/11/22 20:00 98.3 F 85 18 07/11/22 20:00 07/12/22 14:01 97.4 F L 72 16 127/76 BP Pulse Ox 07/12/22 15:00 95 07/12/22 14:45 97 07/12/22 14:30 97 07/12/22 14:20 95 07/12/22 14:10 94 L 07/12/22 14:00 94 L 07/12/22 11:15 129/63 97 07/12/22 08:00 128/66 97 07/12/22 04:00 125/66 93 L 07/12/22 00:00 133/63 97 07/11/22 20:00 140/68 98 07/11/22 20:00 99 07/12/22 14:01 Intake and Output 07/11/22 07/12/22 07/12/22 23:59 07:59 15:59 Intake Total 1360 / 3855 400 / 1400 1000 / 1400 Output Total 0 / 0 0 / 0 0 / 0 Balance 1360 / 3855 400 / 1400 1000 / 1400 Intake: Intake, Oral Amount 360 / 360 0 / 0 Intake, Total IV Amount 400 / 1400 1000 / 1400 Cefepime HCl 2 gm In 0.9 % 100 / 100 Sodium Chloride 100 ml @ 200 mls/hr IV Q8H [facility] Rx#:[id number] Metronidaz/Sod Chl 500 mg In 300 / 300 100 ml @ 100 mls/hr IV Q8H [facility] Rx#:[id number] Infusion Intake 1000 / 1050 0.9 % Sodium Chloride 1000ML 1, 500 / 500 000 ml @ 50 mls/hr IV .Q20H [facility] Rx#:[id number] Cefepime HCl 2 gm In 0.9 % 50 / 50 Sodium Chloride 100 ml @ 200 mls/hr IV Q8H [facility] Rx#:[id number] Metronidaz/Sod Chl 250 mg In 50 100 / 150 ml @ 100 mls/hr IV Q8H [facility] Rx# :[id number] Vancomycin HCl 2,000 mg In 0.9 350 / 350 % Sodium Chloride 250 ml @ 125 mls/hr IV Q12H [facility] Rx#:[id number] Output: Output, Urine Amount 0 / 0 0 / 0 0 / 0 Other: Number of Unmeasured Voids 1 0 1 Weight 115 kg Patient Weight 07/12/22 23:59 Weight 115 kg Laboratory Results - last 24 hr 07/11/22 20:37: POC Glucose 138 H 07/12/22 05:08: POC Glucose 153 H 07/12/22 05:58: WBC 10.9 H D, RBC 3.54 L, Hgb 10.3 L D, Hct 32.7 L, MCV 92.4, MCH 29.1, MCHC 31.5 L, RDW 14.5, Plt Count 491 H, MPV 7.7, Neut % (Auto) 64.6, Lymph % (Auto) 27.4, [place] % (Auto) 7.1, Eos % (Auto) 0.5, Baso % (Auto) 0.4, Neut # (Auto) 7.0, Lymph # (Auto) 3.0, [place] # (Auto) 0.8, Eos # (Auto) 0.1, Baso # (Auto) 0.0, Total Counted 100, Neutrophils % (Manual) 68, Lymphocytes % (Manual) 24, Monocytes % (Manual) 8, Platelet Estimate Slight increase, RBC Morphology Normal 07/12/22 05:58: Sodium 138, Potassium 3.9, Chloride 104, Carbon Dioxide 30, Anion Gap 7.9, BUN 14 D, Creatinine 0.70, Estimated Creat Clear 224, Estimated GFR 124, Est GFR ( Amer) 150, Glucose 169 H, Calcium 8.0 L 07/12/22 14:06: POC Glucose 104 I & O for Labs for Last 24 Hours: Intake & Output 07/09/22 07/10/22 07/11/22 07/12/22 23:59 23:59 23:59 23:59 Intake Total 3755 / 3855 1400 / 1400 Output Total 0 / 0 0 / 0 Balance 3755 / 3855 1400 / 1400 Weight 104.326 kg 115 kg 115 kg Constitutional: Present no acute distress Respiratory: Present normal respiratory effort Cardiac: Present Reg Rate and Rhythm GI: Present normal bowel sounds; Absent tenderness Extremities: Present normal inspection and full ROM Comment:: Foot wound Skin: Present intact; Absent erythema Neuro: Present Grossly Intact and moves all extremities Assessment and Plan *Assessment and plan (1) Ulcer of right foot due to type 2 diabetes mellitus: Status: Acute Category: Medical Code(s): E11.621 - Type 2 diabetes mellitus with foot ulcer; L97.519 - Non-pressure chronic ulcer of other part of right foot with unspecifi
[2022-07-12 15:47] LABS: Vancomycin,Trough 12.4 ug/mL (5.0-10.0)
[2022-07-13] VITALS: BP 117/51; PULSE 78; RESP 18; TEMP 36.6; O2SAT 95
[2022-07-13 04:00] VITALS: BP 125/59; PULSE 74; RESP 18; TEMP 36.5; O2SAT 97; BMI 35.4
[2022-07-13 05:35] LABS: POC Glucose,Bedside 210 (70-110)
[2022-07-13 06:08] LABS: POC Glucose,Bedside 128 (70-110)
--- NOTE | 2022-07-13 06:15 | PC.NURSE ---
no acute distress, no changes from previous assessment, wound vac to right lower foot intact, vss.
[2022-07-13 06:19] LABS: MANUAL DIFFERENTIAL MANUAL DIFFERENTIAL (MANUAL DIFF)
[2022-07-13 06:20] LABS: Basophils # 0.1 K/mm3 (0-0.2); Basophils % 0.4 % (0.1-2.0); Eosinophils # 0.1 K/mm3 (0.0-0.4); Eosinophils % 0.5 % (0.1-12.0); Hematocrit 34.9 % (42.0-52.0); Lymphocytes # 3.4 K/mm3 (0.7-4.5); Lymphocytes % 27.9 % (10-50); Mean Corpuscular HGB Conc 31.6 g/dL (31.8-35.4); Mean Corpuscular Hemoglobin 29.6 pg (27.0-31.2); Mean Corpuscular Volume 93.7 fl (80-94); Mean Platelet Volume 7.6 fl (7.4-10.4); Monocytes # 0.7 K/mm3 (0.1-1.0); Monocytes % 5.9 % (1.7-9.3); Neutrophils % 65.2 % (37.0-80.0); Platelet Count 609 K/mm3 (142-424); Red Blood Count 3.73 M/mm3 (4.60-6.20); Red Cell Distribution Width 14.5 % (11.5-17.5); White Blood Count 12.2 K/mm3 (4.8-10.8)
[2022-07-13 06:28] LABS: Chloride 103 mmol/L (98-107); Potassium 4.7 mmoL/L (3.5-5.1); Sodium 138 mmol/L (136-145)
[2022-07-13 06:31] LABS: Anion Gap 8.7 mEq/L (5-15); Blood Urea Nitrogen 14 mg/dl (9-20); Carbon Dioxide 31 mmol/L (22.0-30.0); Creatinine Clearance Estimated 196 mL/min (50-200); Estimated Glomerular Filt Rate 106 ml/min (>60); GFR (African American) 128 ML/MIN (>60)
[2022-07-13 06:32] LABS: Glucose 122 mg/dl (74-100)
--- NOTE | 2022-07-13 06:45 | PC.NURSE ---
ricco rodgers aprn made aware of pt without VTE prophylaxis ordered at this time.
[2022-07-13 07:44] LABS: Hypochromasia 1+; Lymphocytes % 29 % (10-50); Monocytes % 7 % (2-9); Neutrophils % 64 % (42-76); Platelet Estimate Moderate Increase; Total Cells Counted 100
[2022-07-13 07:58] VITALS: BP 125/60; PULSE 73; RESP 18; TEMP 36.4; O2SAT 99
--- NOTE | 2022-07-13 10:15 | PC.NURSE ---
spoke with dr chaney and prasanna about pain control options. Jamey at that time ordered 15mg iv toradol. patient stating he wishes to go home.
[2022-07-13 10:28] LABS: C-Reactive Protein 27.1 mg/L (0-4)
--- NOTE | 2022-07-13 11:12 | P.PNANES_ITS ---
[facility] Anesthesia Record Part II Anesthesia Record Part II Discharge Time: 14:30 Destination: Medical Surgical Department PACU nurse assessment reviewed?: Yes Patient Condition:: Good Anesthesia Complications:: None Swallowing reflex intact?: Yes Cyanosis?: No Blood Pressure: 131/71 Pulse Rate: 73 Temperature: 97.4 F Mental Status: Alert & Oriented Pain level:: 0 Nausea and/or vomitting:: None Intake, IV Amount: 0
[2022-07-13 11:13] VITALS: BP 131/71; PULSE 73; TEMP 36.3
[2022-07-13 11:19] VITALS: BP 143/88; PULSE 73; RESP 18; TEMP 36.4; O2SAT 98
[2022-07-13 11:38] LABS: POC Glucose,Bedside 149 (70-110)
[2022-07-13 15:10] VITALS: BP 142/81; PULSE 80; RESP 17; TEMP 36.3; O2SAT 98
[2022-07-13 16:24] LABS: POC Glucose,Bedside 145 (70-110)
--- NOTE | 2022-07-13 17:02 | EXP.ORTH.PN ---
Subjective *Date: 07/13/22 *Time: 08:52 Interval history: Patient status post irrigation and sharp debridement right foot diabetic ulcer 3 cm x 5 cm x 3 cm deep. Had interoperative wound VAC placed. This morning he feels better. He is eager to go home. Reports that he feels like the hospital stay is making him feel like he is going crazy and he would like to leave. Ortho Exam (Inpt) Vital signs and Labs for Last 24 Hours: Temp Pulse Resp BP Pulse Ox 97.4 F L 80 17 142/81 H 98 07/13/22 15:10 07/13/22 15:10 07/13/22 15:10 07/13/22 15:10 07/13/22 15:10 Laboratory Results - last 24 hr 07/12/22 19:20: Vancomycin Peak 27.0 07/12/22 20:25: POC Glucose 210 H 07/13/22 05:55: WBC 12.2 H, RBC 3.73 L, Hgb 11.0 L, Hct 34.9 L, MCV 93.7, MCH 29.6, MCHC 31.6 L, RDW 14.5, Plt Count 609 H, MPV 7.6, Neut % (Auto) 65.2, Lymph % (Auto) 27.9, [place] % (Auto) 5.9, Eos % (Auto) 0.5, Baso % (Auto) 0.4, Neut # (Auto) 8.0 H, Lymph # (Auto) 3.4, [place] # (Auto) 0.7, Eos # (Auto) 0.1, Baso # (Auto) 0.1, Total Counted 100, Neutrophils % (Manual) 64, Lymphocytes % (Manual) 29, Monocytes % (Manual) 7, Platelet Estimate Moderate increase, Hypochromasia 1+ 07/13/22 05:55: Sodium 138, Potassium 4.7 D, Chloride 103, Carbon Dioxide 31 H, Anion Gap 8.7, BUN 14, Creatinine 0.80, Estimated Creat Clear 196, Estimated GFR 106, Est GFR ( Amer) 128, Glucose 122 H D, Calcium 8.0 L 07/13/22 05:55: POC Glucose 128 H 07/13/22 05:55: C-Reactive Protein 27.1 H D 07/13/22 11:18: POC Glucose 149 H 07/13/22 16:16: POC Glucose 145 H I & O for Labs for Last 24 Hours: Intake & Output 07/10/22 07/11/22 07/12/22 07/13/22 23:59 23:59 23:59 23:59 Intake Total 3755 / 3855 1640 / 2190 1654 / 1654 Output Total 0 / 0 300 / 300 2500 / 2500 Balance 3755 / 3855 1340 / 1890 -846 / -846 Weight 230 lb 253 lb 8.505 oz 253 lb 8.505 oz 253 lb 8.505 oz Microbiology Reports for the Last 24 Hours: Microbiology 07/12/22 13:25 Foot,Right - Wound Gram Stain - Final 07/12/22 13:25 Foot,Right - Wound Wound Culture - Preliminary 07/11/22 01:20 Blood Blood Culture - Preliminary NO GROWTH AFTER 48 HOURS 07/11/22 01:20 Blood Blood Culture - Preliminary NO GROWTH AFTER 48 HOURS Comment:: Right lower extremity: Improvement of the cellulitis and swelling around the second toe. Wound VAC in place with no leaks. Assessment and Plan *Assessment and plan (1) Ulcer of right foot due to type 2 diabetes mellitus: Status: Acute Category: Medical Code(s): E11.621 - Type 2 diabetes mellitus with foot ulcer; L97.519 - Non-pressure chronic ulcer of other part of right foot with unspecified severity Plan We took interoperative cultures. Those results are not back yet. We will order repeat CRP. In order for him to safely go home we need to arrange for wound VAC to go home with him. He can come to outpatient therapy for wound VAC changes or need to initiate home health for wound VAC changes. This wound VAC changes will need to be 2-3 times per week initially. Empiric antibiotics have been continued through the IV. Need interoperative wound cultures to make proper selection for outpatient p.o. antibiotics. There was some discussion that the patient may want to leave AGAINST MEDICAL ADVICE. I reported that he should stay receive additional doses of IV antibiotics arrange for wound VAC placement or else the chances of this ulceration healing will be greatly decreased. Increasing his likelihood of future surgery and possible amputation of his foot. My recommendations this morning was that he stay receive additional antibiotics get proper p.o. antibiotic coverage and arrange for wound care prior to leaving.
--- NOTE | 2022-07-13 18:21 | PC.NURSE ---
Patient stated he was leaving and was not staying in hospital. Explained to patient he needed antibiotics for wound and wound vac could not be taken home. Dr. Jose Lorenzana notified. Wound vac removed and wet to dry dressing placed. IV's removed.
== END 2022-07-13 16:40 | disposition left against medical advice (07) | DRG 623 ==
LOC: ER 21:50 → 2ND 07-11 01:57
PROVIDERS: Nurse Practitioner Acute Care; Orthopaedic Surgery; Student in an Organized Health Care Education/Training Program; Admitting Provider Internal Medicine; Emergency Provider Emergency Medicine; Visit Provider Internal Medicine
PROC: 0KBW0ZZ Excision of Left Foot Muscle, Open Approach (ICD-10-PCS; principal; 2022-07-12 12:45)
DX: E11.621 Type 2 diabetes mellitus with foot ulcer (principal); E11.52 Type 2 diabetes mellitus with diabetic peripheral angiopathy with gangrene; I96 Gangrene, not elsewhere classified; L03.115 Cellulitis of right lower limb; E66.9 Obesity, unspecified; Z68.35 Body mass index [BMI] 35.0-35.9, adult; F17.210 Nicotine dependence, cigarettes, uncomplicated; Z89.411 Acquired absence of right great toe; E11.40 Type 2 diabetes mellitus with diabetic neuropathy, unspecified
CPT/HCPCS: 11043; 36415; 73702; 80048; 80053; 80202; 82962; 83605; 83880; 84145; 85007; 85014; 85018; 85025; 85048; 85049; 85651; 86140; 87040; 87070; 87075; 87077; 87186; 87205; 93005; 99285; C9803; J0131; J2405; J3370; Q9967; S0030; U0003; U0005

== ENCOUNTER 2023-06-20 10:23 | Inpatient (IN) | payer OTHER, SELFPAY ==
[2023-06-20] VITALS (22 sets, daily range): BP systolic 122–169; BP diastolic 58–83; PULSE 64–97; RESP 15–18; TEMP 36.4–43; O2SAT 92–100; BMI 33.5; BMI 33.0
--- NOTE | 2023-06-20 10:37 | XR_ITS ---
FINAL REPORT CLINICAL HISTORY: first and ssecond web space swelling, SX IN SEPTEMBER 2022, DIABETIC COMPARISON: 07/12/2021 FINDINGS: Right foot Three views were obtained. There is no acute fracture or dislocation. There has been interval amputation of the 2nd digit at the distal 2nd metatarsal. Again identified is amputation of the 1st digit at the metatarsophalangeal. Mild degenerative changes are present. There is no definite bony erosion. There is probable soft tissue air of the medial foot. IMPRESSION: Postsurgical changes as above with probable soft tissue air of the medial foot. Reviewed, Interpreted and Dictated by Sravan Madison III, MD Transcribed by Carlene Marcano Authenticated and [facility]
--- NOTE | 2023-06-20 10:40 | PC.NURSE ---
on phone with hospitalist
--- NOTE | 2023-06-20 10:41 | HMH.EDGENADL ---
Discharge Plan Disposition Patient Disposition: Admitted Chief Complaint: Wound/Laceration Clinical Impressions Clinical Impression: Cellulitis of right foot, Osteomyelitis, Encounter for wound care Discharge ED Provider: Cheng Douglas General Adult HPI General Chief complaint: Wound/Laceration Stated complaint: infection starting from foot and going up leg Time Seen by Provider: 06/20/23 10:25 Mode of Arrival: Ambulatory Source of Information: Patient Limitations: No Limitations Description of Symptoms (Recalled from ER Triage Doc. by RN): pt presents to ED with drainage from wound on right foot. pt reports sometime last year pt had two toes removed due to diabetic ulcer. pt reports for the past 3 days he has had drainage, and redness at incision location. pt reports redness has began to go up his leg. no fevers noted. History of Present Illness HPI narrative: Is a 43-year-old male history of hypertension, hyperlipidemia, poorly controlled diabetes necessitating amputations of his toes presenting with pain, swelling, drainage, erythema of right foot. 4 days prior to this. In his first and second webspace. Patient has previous amputation of his right first toe. He states that his draining from an ulcer on the base of his great toe. It is malodorous, draining, now associated with erythema and swelling traveling up his leg. No fevers or chills, nausea or vomiting, but it is quite painful when putting weight on it, made better with rest. Please note that above description of symptoms, in this electronic medical record under categorization of recalled from ER triage doctor by RN are reflective of an initial nursing assessment, however, is not reflective of my full history and physical exam that was personally taken and clarified. Consequentially, this preceding description of symptoms, which may include the patient's categorized chief complaint in the EMR, do not reflect my personal clinical impression, and the ultimate description of history of present illness and patient stated complaints should be deferred to this section of the note. Unless stated otherwise or congruent with this section of the note, additional signs, symptoms, or incongruence should be interpreted as inaccurate with my clinical impression. Related Data Home Medications Medication Instructions Recorded Confirmed buprenorphine 8 mg-naloxone 2 mg 2 each SL DAILY WITHDRAWAL 02/08/21 06/20/23 sublingual film bupropion HCl 150 mg 24 hr tablet, 150 mg PO DAILY Mood 06/20/23 06/20/23 extended release Allergies Allergy/AdvReac Type Severity Reaction Status Date / Time Penicillins [PENICILLINS] Allergy Intermediate Rash Verified 07/10/22 21:24 morphine AdvReac Severe hallucinati Verified 07/10/22 21:24 ons [facility] Disclaimer: The information contained in this section may have been updated after the patient was seen, as this information can be updated by other users. Medical History Congenital absence of one kidney Diabetes mellitus, type 2 Right great toe amputee Surgical History Hx of cholecystectomy Hx of tonsillectomy Social History Smoking Status: Current every day smoker tobacco type: cigarettes packs per day: 1 second hand exposure: No alcohol intake: never substance use type: former substance user, amphetamines, painkillers and methamphetamine current occupational status: employed Travel in the last 8 weeks: None current occupational exposures/hazards: No caffeine: Yes ROS Obtained: Yes All systems reviewed & no additional complaints except as documented Physical Exam General General appearance: alert, in no apparent distress and anxious Head Head exam: atraumatic and normocephalic Eye Eye exam: Present normal appearance, PERRL and EOMI ENT ENT exam: Present mucous membranes moist Neck Neck exam: Present normal inspection, full ROM and trachea midline Respiratory Respiratory exam: Absent respiratory distress, wheezes, stridor, accessory muscle use or prolonged expiratory phase Cardiovascular Cardiovascular exam: Present normal rhythm Abdominal Exam Abdominal exam: Present soft; Absent distention, tenderness, guarding, rebound or rigidity Extremities Exam Extremities exam: Present edema and other (Noncircumferential 1+ pitting edema right lower extremity associated with erythema extending from toes to mid calf. Patient has previous amputation right great toe. Ulcer at base of previous amputation. Malodorous, purulent, tender) Neurological Exam Neurological exam: Present alert, oriented X3, CN II-XII intact and normal gait; Absent motor sensory deficit Skin Skin exam: Present warm, dry and erythema; Absent diaphoresis Medical Decision Making Medical Records Medical records reviewed: Yes I reviewed the patient's medical records. Jose M Inquiry Pt receiving controlled substance: No Jose M was queried for this patient: No Vital Signs: 06/20/23 10:25 06/20/23 11:12 Temperature 98.2 F Temperature Source Oral Pulse Rate 93 H Pulse Rate [Left Radial] 97 H Respiratory Rate 16 Blood Pressure 132/73 Blood Pressure [Right Arm] 169/82 H Blood Pressure Mean [Right Arm] 111 02 Sat by Pulse Oximetry 97 96 Oxygen Delivery Method Room Air Room Air Lab Data Lab Results 06/20/23 10:50: WBC 11.0 H, RBC 4.22 L, Hgb 12.9 L, Hct 39.8 L, MCV 94.4 H, MCH 30.6, MCHC 32.5, RDW 14.4, Plt Count 367, MPV 8.0, Neut % (Auto) 67.1, Lymph % (Auto) 21.6, [place] % (Auto) 5.5, Eos % (Auto) 5.0, Baso % (Auto) 0.8, Neut # (Auto) 7.4, Lymph # (Auto) 2.4, [place] # (Auto) 0.6, Eos # (Auto) 0.6 H, Baso # (Auto) 0.1, ESR 71 H, Sodium 136, Potassium 4.2, Chloride 102, Carbon Dioxide 29, Anion Gap 9.2, BUN 12, Creatinine 0.70, Estimated Creat Clear 210, Estimated GFR 123, Est GFR ( Amer) 149, Glucose 147 H, Lactate 1.4, Calcium 9.1, Total Bilirubin 0.2, AST 42, ALT 62, Alkaline Phosphatase 180 H, C-Reactive Protein 26.5 H, Total Protein 7.2, Albumin 3.9, Globulin 3.3 H, Albumin/Globulin Ratio 1.2 06/20/23 10:50 06/20/23 10:50 Orders (Tests/Meds): ED MEDICATIONS Generic Name Dose Route Start Last Admin Trade Name Freq PRN Reason Stop Dose Admin Vancomycin HCl 2,000 mg/ 250 mls @ 125 mls/hr 06/20/23 11:00 Sodium Chloride IV 06/20/23 12:59 ONCE ONE Lactated Ringer's 1,000 mls @ 999 mls/hr 06/20/23 11:10 06/20/23 11:11 Lactated Ringer's 1000 Ml Bag IV 06/20/23 12:10 999 mls/hr .Q1H1M ONE Administration Miscellaneous 1 each 06/20/23 10:45 Vancomycin Consult Request NOTAPPLIC 07/20/23 10:44 CONSULT PHARMACY DMITRI Discontinued Medications Generic Name Dose Route Start Last Admin Trade Name Dalia PRN Reason Stop Dose Admin Cefepime HCl 2 gm/ Sodium 100 mls @ 200 mls/hr 06/20/23 10:37 06/20/23 11:07 Chloride IV 06/20/23 11:06 200 mls/hr ONCE ONE Administration Ketorolac Tromethamine 15 mg 06/20/23 10:42 06/20/23 11:08 Ketorolac 30mg/Ml Vial IV 06/20/23 10:43 15 mg ONCE ONE Administration ORDERS Category Date Time Status CT foot RT w con Stat Cat Scan 06/20/23 11:16 Ordered Podiatry Consult [Consult to Podiatry] [CONS] Routine Cons 06/20/23 11:15 Active Foot XR right minimum 3 views [XR foot RT min 3V] Stat Exams 06/20/23 10:37 Taken CBC w/Auto Diff [Complete Blood Count Auto Diff] Stat Lab 06/20/23 10:50 Completed CMP [Comprehensive Metabolic Panel] Stat Lab 06/20/23 10:50 Completed CRP [C-Reactive Protein] Stat Lab 06/20/23 10:50 Completed Complete Blood Count Auto Diff AMLAB Lab 06/21/23 06:00 Ordered Comprehensive Metabolic Panel AMLAB Lab 06/21/23 06:00 Ordered ESR [Erythrocyte Sedimentation Rate] Stat Lab 06/20/23 10:50 Completed Hemoglobin A1C Stat Lab 06/20/23 10:50 Received Lactic Acid Stat Lab 06/20/23 10:50 Completed Lipid Panel Stat Lab 06/20/23 10:50 Received Magnesium AMLAB Lab 06/21/23 06:00 Ordered Blood Culture Stat Micro 06/20/23 10:42 Received Medical Decision Narrative: Is a 43-year-old male history of hypertension, hyperlipidemia, poorly controlled diabetes necessitating amputations of his toes presenting with pain, swelling, drainage, erythema of right foot. 4 days prior to this. In his first and second webspace. Patient has previous amputation of his right first toe. He states that his draining from an ulcer on the base of his great toe. It is malodorous, draining, now associated with erythema and swelling traveling up his leg. No fevers or chills, nausea or vomiting, but it is quite painful when putting weight on it, made better with rest. It should be noted that patient has poorly controlled diabetes which is complicating care. History was obtained via conversation with patient. On arrival, patient hemodynamically stable, alert, oriented x4, appropriate, GCS 15, moving all extremities spontaneously, pupils equal and reactive to light. Full physical exam performed and significant for swelling, tenderness, purulence, ulcer at base of right great toe where it was previously amputated. Is malodorous and tender. He does have pitting edema up to the mid calf that is noncircumferential with associated noncircumferential erythema. Differential includes osteomyelitis, cellulitis, gangrene, abscess, deep space infection, among others. Patient was given vancomycin, cefepime, 1 L LR, Toradol for symptomatic management and correction of underlying abnormalities. Workup independently interpreted and significant for leukocytosis with elevated ESR and CRP. X-rays of the right foot demonstrated no obvious bony erosion concerning for osteomyelitis, CT of the foot with contrast was ordered after conversation with inpatient team. See radiology read for full review of final results. Given patient presentation, workup, history, this most likely represents osteomyelitis versus severe cellulitis right lower extremity the setting of uncontrolled diabetes. Blood cultures pending. Because patient high risk for clinical decompensation, deemed appropriate for inpatient admission. Results were relayed to patient who voiced understanding and patient was agreeable to inpatient admission and management. Patient was admitted to the hospital for further definitive management. Critical Care Critical Care Time Critical Care Time: Yes (endo, orthopedic) Attestation: On 06/20/23, the high probability of a clinically significant, sudden or life threatening deterioration of the following system(s) required my full and direct attention, intervention and personal management. The time I documented below is in addition to time spent performing reported procedures but includes the following listed in this critical care notation. Total Time Total Critical Care Time: 35
[2023-06-20 11:01] LABS: Basophils # 0.1 K/mm3 (0-0.2); Basophils % 0.8 % (0.1-2.0); Eosinophils # 0.6 K/mm3 (0.0-0.4); Hematocrit 39.8 % (42.0-52.0); Hemoglobin 12.9 g/dL (14.1-18.0); Lymphocytes # 2.4 K/mm3 (0.7-4.5); Lymphocytes % 21.6 % (10-50); Mean Corpuscular HGB Conc 32.5 g/dL (31.8-35.4); Mean Corpuscular Hemoglobin 30.6 pg (27.0-31.2); Mean Corpuscular Volume 94.4 fl (80-94); Monocytes # 0.6 K/mm3 (0.1-1.0); Monocytes % 5.5 % (1.7-9.3); Neutrophils # 7.4 K/mm3 (1.8-7.8); Neutrophils % 67.1 % (37.0-80.0); Platelet Count 367 K/mm3 (142-424); Red Blood Count 4.22 M/mm3 (4.60-6.20); Red Cell Distribution Width 14.4 % (11.5-17.5)
[2023-06-20] MEDS: CEFEPIME HCL 2 GM in 0.9 % SODIUM CHLORIDE 100 ML IV ×2 (11:07→19:14)
[2023-06-20] MEDS: KETOROLAC 30MG/ML VIAL 15 MG IV (11:08)
[2023-06-20] MEDS: LACTATED RINGERS 1000ML 1,000 ML 999 ML IV (11:11)
[2023-06-20 11:12] LABS: Chloride 102 mmol/L (98-107); Potassium 4.2 mmoL/L (3.5-5.1); Sodium 136 mmol/L (136-145)
[2023-06-20 11:15] LABS: Alanine Aminotransferase 62 U/L (12-78); Albumin Level 3.9 g/dl (3.5-5.0); Albumin/Globulin Ratio 1.2 (1.1-1.8); Alkaline Phosphatase 180 U/L (38-126); Anion Gap 9.2 mEq/L (5-15); Aspartate Amino Transferase 42 U/L (17-59); Bilirubin,Total 0.2 mg/dl (0.2-1.3); Blood Urea Nitrogen 12 mg/dl (9-20); Carbon Dioxide 29 mmol/L (22.0-30.0); Creatinine Clearance Estimated 210 mL/min (50-200); Estimated Glomerular Filt Rate 123 ml/min (>60); GFR (African American) 149 ML/MIN (>60); Globulin 3.3 g/dL (1.3-3.2); Total Protein,Serum 7.2 g/dl (6.3-8.2)
--- NOTE | 2023-06-20 11:15 | PC.NURSE ---
on phone with hospitalist
[2023-06-20 11:16] LABS: Calcium 9.1 mg/dl (8.4-10.2); Glucose 147 mg/dl (74-100); Lactic Acid 1.4 mmol/L (0.7-2.1)
--- NOTE | 2023-06-20 11:16 | CT_ITS ---
FINAL REPORT TECHNIQUE: After the administration of IV contrast, axial images through the right foot was performed by computed tomography. Sagittal and coronal reformatted images were obtained and reviewed. This study was performed with techniques to keep radiation doses as low as reasonably achievable (ALARA). Individualized dose reduction techniques using automated exposure control or adjustment of mA and/or kV according to the patient's size were employed. CLINICAL HISTORY: concern for osteo R 1st metatarsal COMPARISON: 07/11/2022 FINDINGS: There are postoperative changes from amputation of the great toe. There has been interval amputation of the 2nd digit at the 2nd metatarsal. New bony irregularity is seen at the distal head of the 3rd metatarsal with probable erosions in this region worrisome for osteomyelitis in the head of the 3rd metatarsal. There is soft tissue edema or cellulitis of the distal medial foot. Foci of soft tissue air is seen in the distal medial foot. IMPRESSION: Interval amputation of the 2nd digit. New bony erosion of the head of the 3rd metatarsal worrisome for osteomyelitis. New soft tissue air in the distal medial foot, may represent soft tissue ulcer but gas-forming infection is not excluded. Reviewed, Interpreted and Dictated by Sravan Madison III, MD Transcribed by Carlene Marcano Authenticated and [facility]
[2023-06-20 11:21] LABS: C-Reactive Protein 26.5 mg/L (0-4)
--- NOTE | 2023-06-20 11:22 | HMH.PHAINT1 ---
Pharmacy Intervention Comments: MEDICATION RECONCILIATION COMPLETED ON PATIENT USING EXTERNAL FILL HISTORY FROM PHARMACY AND JAYE REPORT. -JASON OWEN, ZIOND
[2023-06-20 11:23] LABS: Erythrocyte Sedimentation Rate 71 mm/hr (0-15)
[2023-06-20] MEDS: SODIUM CHLORIDE 0.9% 10ML SYR (RAD ONLY) 10 ML IV (11:46)
[2023-06-20] MEDS: IOPAMIDOL-370 (76%);100ML BOTTLE 75 ML IV (11:46)
[2023-06-20] MEDS: VANCOMYCIN CONSULT REQUEST 1 EACH NOTAPPLIC (11:52)
--- NOTE | 2023-06-20 11:56 | PC.NURSE ---
report called to jose enrique on second floor
[2023-06-20 12:03] LABS: Cholesterol 189 mg/dl (140-200); HDL Cholesterol 47 mg/dl (40-60); Triglycerides 142 mg/dl (30-150); VLDL Cholesterol 28 mg/dL (0-40)
--- NOTE | 2023-06-20 12:05 | PC.NURSE ---
arrived by w/c from ED
--- NOTE | 2023-06-20 12:13 | ECG_ITS ---
APPROVED REPORT Exam: Resting ECG HR:83 bpm ECG Measurements Heart Rate 83 AXES MS 144 P 29 QRSd 110 QRS 25 QT 365 T 48 QTc 404 Conclusion SINUS RHYTHM Electronically signed by : THAD PORTER, 06/20/2023 12:47:05
[2023-06-20 12:15] LABS: Direct LDL Cholesterol 91.42 mg/dL (100-129)
[2023-06-20] MEDS: VANCOMYCIN HCL 2,000 MG in 0.9 % SODIUM CHLORIDE 250 ML 125 MG IV (12:18)
--- NOTE | 2023-06-20 12:36 | P.CONS_ITS ---
History of Present Illness *Admission Date: 06/20/23 *Reason for visit:: Right DM foot infection *History of present illness: ER HPI narrative: Is a 43-year-old male history of hypertension, hyperlipidemia, poorly controlled diabetes necessitating amputations of his toes presenting with pain, swelling, drainage, erythema of right foot. 4 days prior to this. In his first and second webspace. Patient has previous amputation of his right first toe. He states that his draining from an ulcer on the base of his great toe. It is malodorous, draining, now associated with erythema and swelling traveling up his leg. No fevers or chills, nausea or vomiting, but it is quite painful when putting weight on it, made better with rest. Podiatry consult: 43-year-old diabetic known to the podiatry service from right hallux amputation July 2021. Had an I&D by Dr. Concepcion July 2022. Reports having right second toe and partial metatarsal amputation over the summer in [place], surgeon unknown. Reports several days ago started feeling bad and noticed increased swelling, redness and drainage from the foot. Reports worsening pain. Presented to [facility] ER for evaluation. Patient has agreed to admission and surgery. Discussed soft tissue air and need for urgent I&D. Also discussed more definitive amputation. [facility] Disclaimer: The information contained in this section may have been updated after the patient was seen, as this information can be updated by other users. Medical History Congenital absence of one kidney Diabetes mellitus, type 2 Right great toe amputee Surgical History Hx of tonsillectomy Hx of cholecystectomy Social History Smoking Status: Current every day smoker tobacco type: cigarettes packs per day: 1 second hand exposure: No alcohol intake: never substance use type: former substance user, amphetamines, painkillers and methamphetamine current occupational status: employed Travel in the last 8 weeks: None current occupational exposures/hazards: No caffeine: Yes Review of Systems Review of Systems Review of systems:: pertinent systems reviewed and negative unless documented below Constitutional Constitutional: Reports system reviewed and no additional complaints, except as documented Eyes Eyes: Reports system reviewed and no additional complaints, except as documented ENT Ears, Nose, Mouth, and Throat: Reports system reviewed and no additional complaints, except as documented *Cardiovascular Cardiovascular: Reports system reviewed and no additional complaints, except as documented *Respiratory Respiratory: Reports system reviewed and no additional complaints, except as documented *Gastrointestinal Gastrointestinal: Reports system reviewed and no additional complaints, except as documented and Reports nausea *Genitourinary Genitourinary: Reports system reviewed and no additional complaints, except as documented *Musculoskeletal Musculoskeletal: Reports joint swelling and Reports radiating pain into limb Integumentary/Breasts Skin/Breast: Reports erythema, Reports skin ulcer and Reports wounds Comments: Erythema noted to the right lower extremity across the dorsum of the foot and circumferential to mid wang. Prior amputation of great toe with sloughing of skin. Multiple areas of peeling skin to right distal foot, medial plantar foot. *Neurologic Neurologic: Reports paresthesias Psychiatric Psychiatric: Reports system reviewed and no additional complaints, except as documented Endocrine Endocrine: Reports system reviewed and no additional complaints, except as documented Hematologic/Lymphatic Hematologic/Lymphatic: Reports system reviewed and no additional complaints, except as documented Allergic/Immunologic Allergic/Immunologic: Reports system reviewed and no additional complaints, except as documented Meds Home Medications and Allergies Home Medications Medication Instructions Recorded Confirmed Type buprenorphine 8 mg-naloxone 2 mg 2 each SL DAILY WITHDRAWAL 02/08/21 06/20/23 History sublingual film bupropion HCl 150 mg 24 hr tablet, 150 mg PO DAILY Mood 06/20/23 06/20/23 History extended release New Prescriptions to Start Prescriptions: Allergies Allergy/AdvReac Type Severity Reaction Status Date / Time Penicillins [PENICILLINS] Allergy Intermediate Rash Verified 07/10/22 21:24 morphine AdvReac Severe hallucinati Verified 07/10/22 21:24 ons Exam (Inpt) Vital signs and Labs for Last 24 Hours: Temp Pulse Resp BP Pulse Ox O2 Del Method 98.1 F 64 18 159/83 H 99 Room Air 06/20/23 12:20 06/20/23 12:20 06/20/23 12:20 06/20/23 12:20 06/20/23 12:20 06/20/23 12:20 Laboratory Results - last 24 hr 06/20/23 10:50: WBC 11.0 H, RBC 4.22 L, Hgb 12.9 L, Hct 39.8 L, MCV 94.4 H, MCH 30.6, MCHC 32.5, RDW 14.4, Plt Count 367, MPV 8.0, Neut % (Auto) 67.1, Lymph % (Auto) 21.6, [place] % (Auto) 5.5, Eos % (Auto) 5.0, Baso % (Auto) 0.8, Neut # (Auto) 7.4, Lymph # (Auto) 2.4, [place] # (Auto) 0.6, Eos # (Auto) 0.6 H, Baso # (Auto) 0.1, ESR 71 H, Sodium 136, Potassium 4.2, Chloride 102, Carbon Dioxide 29, Anion Gap 9.2, BUN 12, Creatinine 0.70, Estimated Creat Clear 210, Estimated GFR 123, Est GFR ( Amer) 149, Glucose 147 H, Lactate 1.4, Calcium 9.1, Total Bilirubin 0.2, AST 42, ALT 62, Alkaline Phosphatase 180 H, C-Reactive Protein 26.5 H, Total Protein 7.2, Albumin 3.9, Globulin 3.3 H, Albumin/Globulin Ratio 1.2, Triglycerides 142, Cholesterol 189, LDL Cholesterol Direct 91.42 L, VLDL Cholesterol 28, HDL Cholesterol 47, Cholesterol/HDL Ratio 4.0 H I & O for Labs for Last 24 Hours: Intake & Output 06/18/23 06/19/23 06/20/23 06/21/23 11:59 11:59 11:59 11:59 Output Total 0 / 0 Balance 0 / 0 Weight 240 lb 236 lb 15.951 oz Constitutional: Present no acute distress and obese Head: Present normocephalic Neck: Present normal inspection Respiratory: Present normal respiratory effort Cardiac: Present posterior tibial pulses present and pedal pulses present GI: Present soft Rectal (male): Present deferred (male): Present deferred Extremities: Present tenderness, normal capillary refill and edema Skin: Present erythema and wounds Comment:: Erythema noted to the right lower extremity across the dorsum of the foot and circumferential to mid wang. Prior amputation of great toe and 2nd partial ray with sloughing of skin. Multiple areas of peeling skin to right distal foot, medial plantar foot. Malodorous drainage, sloughing skin with blistering consist with gas infection. Ulceration full thickness to medial distal hallux amp site ~ 3x5cm. Neuro: Present Motor Function Intact, oriented x 3 and moves all extremities Ankle: right: erythema, right: swelling and right: tenderness Feet/Toes: right: amputation (hallux, partial 2nd ray) Inspection: Present skin break, infection and ulceration Pulses: L dorsalis pedis pulse: normal, R dorsalis pedis pulse: normal, L posterior tibial pulse: normal and R posterior tibial pulse: normal CFT: normal: CFT Results Labs 06/20/23 10:50 06/20/23 10:50 Labs: Abnormal lab results 06/20/23 Range/Units 10:50 WBC 11.0 H (4.8-10.8) K/mm3 RBC 4.22 L (4.60-6.20) M/mm3 Hgb 12.9 L (14.1-18.0) g/dL Hct 39.8 L (42.0-52.0) % MCV 94.4 H (80-94) fl Eos # (Auto) 0.6 H (0.0-0.4) K/mm3 ESR 71 H (0-15) mm/hr Glucose 147 H (74-100) mg/dl Alkaline Phosphatase 180 H (38-126) U/L C-Reactive Protein 26.5 H (0-4) mg/L Globulin 3.3 H (1.3-3.2) g/dL LDL Cholesterol Direct 91.42 L (100-129) mg/dL Cholesterol/HDL Ratio 4.0 H (1-3.5) H & H 06/20/23 Range/Units 10:50 Hgb 12.9 L (14.1-18.0) g/dL Hct 39.8 L (42.0-52.0) % All other labs normal. Diagnostic results Ankle/Foot x-ray: report reviewed and image reviewed (gas to medial foot) Ankle/Foot CT: image reviewed (gas, infection to distal and medial foot) Assessment and Plan *Assessment and plan (1) Cellulitis of right foot: Status: Acute Category: Medical Code(s): L03.115 - Cellulitis of right lower limb (2) Gas gangrene of foot: Status: Acute Category: Medical Code(s): A48.0 - Gas gangrene (3) Osteomyelitis of right foot: Status: Acute Qualifiers: Osteomyelitis type: other chronic Qualified Code(s): M86.671 - Other chronic osteomyelitis, right ankle and foot Category: Medical Code(s): M86.9 - Osteomyelitis, unspecified (4) Diabetic foot infection: Status: Acute Category: Medical Code(s): E11.628 - Type 2 diabetes mellitus with other skin complications; L08.9 - Local infection of the skin and subcutaneous tissue, unspecified (5) Ulcer of right foot due to type 2 diabetes mellitus: Status: Acute Category: Medical Code(s): E11.621 - Type 2 diabetes mellitus with foot ulcer; L97.519 - Non-pressure chronic ulcer of other part of right foot with unspecified severity (6) Class 1 obesity: Status: Acute Category: Medical Code(s): E66.9 - Obesity, unspecified Plan Right diabetic foot infection: -Discussed differential diagnosis: Gas gangrene, DFU, cellulitis, osteomyelitis -X-rays reviewed: Gas to distal hallux and medial foot -CT reviewed: Gas to distal hallux, medial foot with questionable cortical erosions to the first metatarsal, third metatarsal head has some irregularities could be from osteomyelitis versus pathological fracture secondary to infection. Report pending. -06/20/23, labs: wbc 11.0, esr 71, crp 26.5, cr 0.7, gfr 123, glucose 147 Pre-op: 43 DM male presents to the ER today for right foot cellulitis and infection. Labs and new images were discussed with the patient. We discussed conservative versus surgical treatment options. We discussed conservative care including continued oral vs IV antibiotics and local wound care versus surgical incision and drainage. Recommend urgent same-day I&D for gas infection. Discussed more definitive amputation addressing the cortical erosions at the first metatarsal head, third metatarsal head osseous changes and the overall bony parabola to help prevent recurrent plantar ulcers and diabetic foot infections. Patient understands that they could have wound healing complications including delayed healing and continued/worsening infection. We discussed that if the wound does not heal, it is possible that they may need further debridement. Patient understands if infection spreads into the bone, it may warrant proximal amputation and could result in further loss of digits, loss of partial foot or loss of leg (BKA). We discussed the risks and benefits in great detail. Other surgical risks include: prolonged pain and swelling, further infection requiring oral or IV antibiotics, delay in healing of soft tissue or bone, nerve or blood vessel damage, CRPS/RSD, DVT/PE, anesthesia complications, and even . All questions answered. Patient verbalized understanding. Consent obtained. Plan: -NPO now -Stat EKG -IV antibiotics broad-spectrum: Vanco, cefepime -Discussed with hospitalist Dr. Davis and surgery team -Plan for surgery today @1400 for right foot incision and drainage, possible right transmetatarsal amputation, possible application of antibiotic beads -Discussed if the tissue is too poor for even a partial closure, would do I&D today and then stage for washout and definitive amputation tomorrow -Will follow Thank you for involving us in the patient's care. Will plan to follow.
[2023-06-20] MEDS: HYDROMORPHONE 2MG/ML SYRINGE 1 MG IV ×3 (13:28→22:06)
--- NOTE | 2023-06-20 13:40 | PC.NURSE ---
pt to surgery
[2023-06-20 13:50] LABS: Hemoglobin A1C 5.6 % (4.0-6.0)
--- NOTE | 2023-06-20 13:53 | EXP.ANES.CKL ---
[facility] Disclaimer: The information contained in this section may have been updated after the patient was seen, as this information can be updated by other users. Medical History Congenital absence of one kidney Diabetes mellitus, type 2 Right great toe amputee Surgical History Hx of tonsillectomy Hx of cholecystectomy Social History Smoking Status: Current every day smoker tobacco type: cigarettes packs per day: 1 second hand exposure: No alcohol intake: never substance use type: former substance user, amphetamines, painkillers and methamphetamine current occupational status: employed Travel in the last 8 weeks: None current occupational exposures/hazards: No caffeine: Yes [facility] Anesthesia Checklist Patient Identification Patient Identification: Arm Band Structural Data Admitted From: Home Planned Operative Procedure/s: Right Foot Transmetatarsal Amputation Consent for Planned Operative Procedure(s) Verified: Yes Verified Documents: Surgical Consent and History and Physical NPO Status Verified Time NPO: 00:00 Additional verifications Anesthesia Reactions: No Airway Assessment Mallampati Score:: Class II C-Spine Mobility Assessed: Yes TMJ Mobility Assessed: Yes Dentition: Good Dentition Neurological Assessment Level of Consciousness: Awake and Alert Anesthesia Plan Anesthesia Risk discussed: Yes Anesthesia Plan: Verified ASA Class: III Anesthesia Type: General
[2023-06-20] MEDS: CLINDAMYCIN PHOSPHATE/D5W 900 MG/50 ML PIGGYBACK 50 MG (14:03)
[2023-06-20] MEDS: GENTAMICIN 80 MG/2 ML VIAL (14:44)
[2023-06-20] MEDS: SODIUM CHLORIDE IRRIG SOLUTION 3,000 ML 200 ML IR (14:45)
--- NOTE | 2023-06-20 14:58 | EXP.HP ---
History of Present Illness *Admission Date: 06/20/23 *Reason for visit:: Right foot pain *History of present illness: Mr. Schwarz is a 43-year-old male with history of hypertension, hyperlipidemia, diabetes, opiate dependence. Previous amputation of part of his right foot. Presented to the ER because of worsening pain, swelling, drainage and redness of his foot. States he is tender up to the mid calf. Has noticed swelling and pain and some drainage over the past 4 days. He has had an ulcer on the bottom of his foot for period of time. Drainage is foul-smelling. Denies any lucila fever or chills however. Significant tenderness in right leg. No chest pain or shortness of breath. Imaging in the ER concerning for what appears to be osteomyelitis of the distal first metatarsal. Also noted to have white count of 11, elevated inflammatory markers with CRP elevated at 26 and ESR of 71. Of note, A1c well-controlled at 5.6. Patient initiated on IV antibiotics, given concern for cellulitis and osteomyelitis, medicine was consulted for admission. On arrival to the floor, podiatry was consulted for evaluation and possible debridement. Patient in significant pain. Takes buprenorphine at home, having a hard time controlling his pain at this time. Is alert and oriented x 3. [facility] Disclaimer: The information contained in this section may have been updated after the patient was seen, as this information can be updated by other users. Medical History Congenital absence of one kidney Diabetes mellitus, type 2 Right great toe amputee Surgical History Hx of tonsillectomy Hx of cholecystectomy Social History Smoking Status: Current every day smoker tobacco type: cigarettes packs per day: 1 second hand exposure: No alcohol intake: never substance use type: former substance user, amphetamines, painkillers and methamphetamine current occupational status: employed Travel in the last 8 weeks: None current occupational exposures/hazards: No caffeine: Yes Review of Systems Review of Systems Review of systems (narrative): 14 point review of systems performed, pertinent positives and negatives as per HPI *Neurologic Neurologic: Reports paresthesias Meds Home Medications and Allergies Home Medications Medication Instructions Recorded Confirmed Type buprenorphine 8 mg-naloxone 2 mg 2 each SL DAILY WITHDRAWAL 02/08/21 06/20/23 History sublingual film bupropion HCl 150 mg 24 hr tablet, 150 mg PO DAILY Mood 06/20/23 06/20/23 History extended release New Prescriptions to Start Prescriptions: Allergies Allergy/AdvReac Type Severity Reaction Status Date / Time Penicillins [PENICILLINS] Allergy Intermediate Rash Verified 07/10/22 21:24 morphine AdvReac Severe hallucinati Verified 07/10/22 21:24 ons Exam Data for Last 24 hours Vital signs and Labs for Last 24 Hours: Temp Pulse Resp BP Pulse Ox O2 Del Method 98.1 F 64 18 159/83 H 99 Room Air 06/20/23 12:20 06/20/23 12:20 06/20/23 12:20 06/20/23 12:20 06/20/23 12:20 06/20/23 12:20 Laboratory Results - last 24 hr 06/20/23 10:50: WBC 11.0 H, RBC 4.22 L, Hgb 12.9 L, Hct 39.8 L, MCV 94.4 H, MCH 30.6, MCHC 32.5, RDW 14.4, Plt Count 367, MPV 8.0, Neut % (Auto) 67.1, Lymph % (Auto) 21.6, [place] % (Auto) 5.5, Eos % (Auto) 5.0, Baso % (Auto) 0.8, Neut # (Auto) 7.4, Lymph # (Auto) 2.4, [place] # (Auto) 0.6, Eos # (Auto) 0.6 H, Baso # (Auto) 0.1, ESR 71 H, Sodium 136, Potassium 4.2, Chloride 102, Carbon Dioxide 29, Anion Gap 9.2, BUN 12, Creatinine 0.70, Estimated Creat Clear 210, Estimated GFR 123, Est GFR ( Amer) 149, Glucose 147 H, Hemoglobin A1c 5.6, Lactate 1.4, Calcium 9.1, Total Bilirubin 0.2, AST 42, ALT 62, Alkaline Phosphatase 180 H, C-Reactive Protein 26.5 H, Total Protein 7.2, Albumin 3.9, Globulin 3.3 H, Albumin/Globulin Ratio 1.2, Triglycerides 142, Cholesterol 189, LDL Cholesterol Direct 91.42 L, VLDL Cholesterol 28, HDL Cholesterol 47, Cholesterol/HDL Ratio 4.0 H I & O for Last 24 hours: Intake & Output 06/17/23 06/18/23 06/19/23 06/20/23 23:59 23:59 23:59 23:59 Output Total 0 / 0 Balance 0 / 0 Weight 107.5 kg Constitutional Constitutional: mild distress, obese, chronically ill appearing and cooperative *Routine HEENT Exam Head: Present normocephalic Eye: Present EOMI and PERRL ENT: Present mucous membranes moist *Routine Neck Exam Neck: Present supple; Absent lymphadenopathy *Routine Respiratory Exam Respiratory: Present CTA bilaterally; Absent rhonchi, wheezes or crackles *Routine Cardiovascular Exam Cardiovascular: Present RRR *Routine Abdominal Exam Abdominal: Present soft and normoactive bowel sounds; Absent tenderness *Routine Rectal Exam Rectal:: deferred *Routine Genitalia Exam Genitalia:: deferred *Routine Extremities Exam Extremities: Present edema (Distal right lower extremity); Absent cyanosis or clubbing Comments: Right leg tender to palpation in the lower portion. Right foot with absent first and second digit. Foul-smelling drainage from ulceration on plantar surface of foot under distal metatarsal. Warmth and redness present *Routine Skin Exam Skin: Present erythema and warm; Absent rash *Routine Neurological Exam Neurological: Present alert, oriented X3 and moving all extremities; Absent altered mental status Assessment and Plan *Assessment and plan (1) Osteomyelitis of right foot: Status: Acute Qualifiers: Osteomyelitis type: other chronic Qualified Code(s): M86.671 - Other chronic osteomyelitis, right ankle and foot Category: Medical Code(s): M86.9 - Osteomyelitis, unspecified (2) Class 1 obesity: Status: Acute Category: Medical Code(s): E66.9 - Obesity, unspecified (3) Diabetic foot infection: Status: Acute Category: Medical Code(s): E11.628 - Type 2 diabetes mellitus with other skin complications; L08.9 - Local infection of the skin and subcutaneous tissue, unspecified (4) Gas gangrene of foot: Status: Acute Category: Medical Code(s): A48.0 - Gas gangrene (5) Ulcer of right foot due to type 2 diabetes mellitus: Status: Acute Category: Medical Code(s): E11.621 - Type 2 diabetes mellitus with foot ulcer; L97.519 - Non-pressure chronic ulcer of other part of right foot with unspecified severity Plan 43-year-old male with previous amputation of right foot. Presented to the ER with pain and swelling. Concern for osteomyelitis. Discussed case with ER physician request admission for podiatry consult, IV antibiotics, and possible surgical evaluation given concern for osteomyelitis on imaging. Medicine agreed to admit. Podiatry consulted. Patient taken to the OR within a few hours of admission. Wound debrided, continuing broad-spectrum antibiotics. Necessitating inpatient admission. Problems addressed as follows: Osteomyelitis of right foot Cellulitis -Podiatry consulted, appreciate their recommendations. Status post I&D with open transmetatarsal amputation. -White cell count elevated at 11, repeat CBC, CMP, magnesium ordered for the morning. Inflammatory markers including CRP ordered for the morning -Continuing IV antibiotics with vancomycin and cefepime -Tissue culture pending -Personally reviewed x-ray, shows destructive appearance of distal metatarsal highly suspicious for osteomyelitis. Osteo seen during surgery. -Toradol IV 30 mg every 6 hours as needed for pain - Dilaudid 1 mg every 4 hours as needed for severe breakthrough pain. Monitor for toxicity. History of diabetes, A1c currently controlled in the low 5 range. Will continue fingersticks ACHS and sliding scale insulin. Chronic opiate dependence: Continue buprenorphine per home regimen. Dilaudid for breakthrough pain. Plan to resume buprenorphine at discharge for pain control. Continue bupropion 150 mg daily for mood Obesity complicates all aspects of his care Therapy eval after surgery to assist with mobility Full code Holding anticoagulation in the setting of active surgical intervention Diabetic diet, n.p.o. at midnight for repeat procedure
--- NOTE | 2023-06-20 15:36 | P.PNANES_ITS ---
[facility] Anesthesia Record Part I Anesthesia Record I Intake, IV Amount: 1,000 Hydration: Adequate Estimated blood loss (mL): 10 Urine output (mL): 0 Blood Products used (#): none Blood Pressure: 124/74 SaO2: 96 Pulse Rate: 87 Airway Patency: Patent Respiratory Rate: 16 Temperature: 97.6 F Patient is:: Drowsy and Stable Stable to PACU at:: 15:30
--- NOTE | 2023-06-20 15:39 | XR_ITS ---
FINAL REPORT CLINICAL HISTORY: post op right foot COMPARISON: 5 hours prior FINDINGS: RIGHT FOOT: Three views of the right foot were obtained. There has been interval transmetatarsal amputation. The joint spaces are intact. There is no soft tissue abnormality. IMPRESSION: Postoperative changes from interval transmetatarsal amputation. Reviewed, Interpreted and Dictated by Sravan Madison III, MD Transcribed by Monica Adams Authenticated and [facility]
--- NOTE | 2023-06-20 15:39 | EXP.OP.NOTE ---
Date of procedure: 06/20/23 Pre-op Diagnosis:: Right diabetic foot infection Diabetic foot ulcer Cellulitis Gas gangrene Post-op Diagnosis:: Same Procedure performed:: Right foot incision and drainage Wide excisional irrigation and debridement Open transmetatarsal amputation (staged surgery) Surgeon:: Pati Chandler DPM PARTS COUNTER ASSOCIATE:: John Ernandez Anesthesia: GETA Estimated blood loss (mL): 30 Clinical Note:: See H&P from today. Due to the urgent nature of the surgery, and urgent right foot incision and drainage was planned for today. Given his history of noncompliance, discussed partial ray amputations could lead to further ulceration due to lateral column overloading and pressure points on the plantar lateral foot. Patient did not want to have multiple repeat foot surgeries in the future on his toes. Discussed doing a staged definitive amputation depending on the skin and tissue quality. Will plan for OR return for wound closure if/when tissue is viable. Operative findings:: Previous right hallux amputation. Previous partial right second ray amputation. Right diabetic foot ulcer at the distal plantar hallux amputation stump. Preoperatively wound was 100% brown eschar and measured 3 x 2 x 0 cm. Skin sloughing and blistering noted throughout the distal medial foot. Incision was made through previous hallux amputation site full-thickness down to the level of bone approximately 2 cm deep. Purulence malodorous drainage noted. Wound culture taken. A second full-thickness incision made 4cm deep with a 15 blade full-thickness to the level of the second metatarsal made. Tissue appeared purulent and malodorous distally. At the level of the metatarsal there was viable bleeding and viable soft tissue noted. A third full-thickness incision was made at the plantar aspect of the third toe 2 cm deep extending to the third MPJ. The first and third metatarsal heads had cortical erosions and was soft. Fracture noted to the third metatarsal neck. Hypertrophy and irregularity noted to the second metatarsal amputation site. Plantar tissue under the fourth and fifth toes appeared slightly acevedo. Given patient's history of MRSA and 3 prior foot surgeries, decision was made to perform an open transmetatarsal amputation. Plan to keep patient for IV antibiotics and plan for staged surgery/return to the OR tomorrow for a washout with possible staged wound closure. Operative note:: On this date and time patient was deemed an appropriate surgical candidate. With informed consent signed, the patient was taken to the operating theater. The patient was positioned supine. LMA anesthesia was induced. Mid calf tourniquet @225mmHg. The right lower extremity was prepped and draped in normal sterile fashion Right foot incision and drainage: Attention was directed to the right distal blister gas site where a 15 blade was used to make an incision over ulcer. Purulence was expressed. Wound culture taken. There were gangrenous changes and skin sloughing noted a ascending cellulitis to the mid wang. 3 separate incision and drainage sites were made. See operative findings for details. Purulent drainage was expressed from the dorsal distal medial aspect of the foot extending toward the third toe. No purulence noted to the lateral foot. Right open transmetatarsal amputation: A fish mouth incision was mapped out. Utilizing a 15 blade dissection was carried down sharply to the level of the bone around the proximal phalanx bases, which were disarticulated from the metatarsals. Note prior first and second toe amputations. The toes and distal soft tissue were transected and sent as gross path. Attention was then directed to the metatarsals. Utilizing power resection the metatarsal heads 1-5 were transected. A piece of the metatarsals 1-5 were sent as a bone culture. A piece of the third metatarsal was sent as bone pathology. Suspected osteomyelitis of the first and third distal metatarsals. A piece of the second and third metatarsal was sent to pathology for a clean proximal margin. Remaining metatarsals looked within normal limits, bone hard, no obvious signs of osteomyelitis noted. Next 3 L of gentamicin irrigation was used to flush the wound with pulse lavage. The wound was re-explored and no further signs of infection noted. Tourniquet deflated and immediate hyperemic response was noted to the digits. Bleeding controlled. Vessels were ligated with electrocautery. Decision was made to leave the wound open for staged washout and definitive TMA amputation closure. 0 Prolene was used to loosely reapproximate the medial and lateral foot to hold in the packed Betadine soaked gauze. The wound was cleansed. Betadine soaked gauze and dry sterile dressing was then applied to the right foot. The patient was awoken from anesthesia and transferred to recovery with vital signs stable and neurovascular status intact. Patient appeared to tolerate procedure and anesthesia well without complication. Materials: 0 Prolene Plan: Patient is to maintain dressing clean dry and intact. Podiatry will change dressing in AM. Plan for surgery tomorrow, 06/21/23, right foot incision and drainage, debridement, wound closure @1215 Continue IV antibiotics. NWB to RLE with fracture boot and crutches. Obtain post op films, right foot, 3 views. Follow-up tomorrow. Tourniquet time (min): 27 Condition: stable Disposition: floor Specimens:: Path: right 2-3rd metatarsal margin, 3rd metatarsal bone Culture: 1st metatarsal, 2-3rd metatarsal, 4-5th metatarsal bone Right foot tissue culture Complications:: None
[2023-06-20 15:42] LABS: POC Glucose,Bedside 115 (70-110)
--- NOTE | 2023-06-20 16:13 | EXP.PHA.CONS ---
Pharmacy Consult Date: 06/20/23 Time: 16:13 Referring provider: DR. FIELDS Reason for Consult:: VANCOMYCIN DOSING Allergies Allergy/AdvReac Type Severity Reaction Status Date / Time Penicillins [PENICILLINS] Allergy Intermediate Rash Verified 07/10/22 21:24 morphine AdvReac Severe hallucinati Verified 07/10/22 21:24 ons Home Medications Medication Instructions Recorded Confirmed Type buprenorphine 8 mg-naloxone 2 mg 2 each SL DAILY WITHDRAWAL 02/08/21 06/20/23 History sublingual film bupropion HCl 150 mg 24 hr tablet, 150 mg PO DAILY Mood 06/20/23 06/20/23 History extended release New Prescriptions to Start Prescriptions: Height: 1.8 m Weight: 107.5 kg Laboratory Results:: Laboratory Results - last 24 hr 06/20/23 10:50: WBC 11.0 H, RBC 4.22 L, Hgb 12.9 L, Hct 39.8 L, MCV 94.4 H, MCH 30.6, MCHC 32.5, RDW 14.4, Plt Count 367, MPV 8.0, Neut % (Auto) 67.1, Lymph % (Auto) 21.6, [place] % (Auto) 5.5, Eos % (Auto) 5.0, Baso % (Auto) 0.8, Neut # (Auto) 7.4, Lymph # (Auto) 2.4, [place] # (Auto) 0.6, Eos # (Auto) 0.6 H, Baso # (Auto) 0.1, ESR 71 H, Sodium 136, Potassium 4.2, Chloride 102, Carbon Dioxide 29, Anion Gap 9.2, BUN 12, Creatinine 0.70, Estimated Creat Clear 210, Estimated GFR 123, Est GFR ( Amer) 149, Glucose 147 H, Hemoglobin A1c 5.6, Lactate 1.4, Calcium 9.1, Total Bilirubin 0.2, AST 42, ALT 62, Alkaline Phosphatase 180 H, C-Reactive Protein 26.5 H, Total Protein 7.2, Albumin 3.9, Globulin 3.3 H, Albumin/Globulin Ratio 1.2, Triglycerides 142, Cholesterol 189, LDL Cholesterol Direct 91.42 L, VLDL Cholesterol 28, HDL Cholesterol 47, Cholesterol/HDL Ratio 4.0 H 06/20/23 15:35: POC Glucose 115 H Medical History: Medical History (Updated 06/20/23 @ 15:37 by Pati Chandler DPM) Congenital absence of one kidney Diabetes mellitus, type 2 Right great toe amputee Assessment and Plan Assessment and plan all Dx Assessment and Plan for all problems:: Pharmacokinetic dosing service Objective: Patient: Floor: Age: 43 yo Serum creatinine: 0.7 mg/dL Height: 71.0 Inches Weight (kg): 107.5 Assessment: IBW (kg): 75.30 Dosing wt(kg): 107.5 Estimated Creatinine clearance (ml/min): 130 Clearance limited to 130 ml/min to reduce risk of overdosing. CRCL method: Cockcroft and Gault using ibw(default). Drug selected: Vancomycin Loading dose (mg): 0 Vd (liters): 86.0 (factor used: 0.8 L/kg) Regan (hr-1): 0.112 Half life (hrs): 6.19 Recommended dose: 1750 mg Interval: 8 hrs Infusion time (hrs): 2.0 Predicted peak (mcg/mL): 30.8 Predicted trough (mcg/mL): 15.73 Total body weight is being used for vancomycin dosing. Recommendations: Give Vancomycin 1750 mg q 8 hrs with an expected Cpeak of 30.8 mcg/ml and an expected Ctrough of 15.73 mcg/ml ----Vanco only - ignore for aminoglycosides----- CLvanco= 9.63 L/hr AUC 0-24 /FRIEDA Data: FRIEDA 0.5 mcg/mL: AUC/FRIEDA: 1090.3 FRIEDA 1.0 mcg/mL: AUC/FRIEDA: 545.2 --------- FRIEDA 1.5 mcg/mL: AUC/FRIEDA: 363.4 FRIEDA 2.0 mcg/mL: AUC/FRIEDA: 272.6
[2023-06-20 21:33] LABS: POC Glucose,Bedside 158 (70-110)
[2023-06-20] MEDS: humaLOG 100 UNITS/ML 3ML VIAL (SSI) SQ (21:58)
[2023-06-20] MEDS: ONDANSETRON 4MG/2ML VIAL 4 MG IV (22:06)
[2023-06-21] VITALS (19 sets, daily range): BP systolic 112–149; BP diastolic 54–95; PULSE 72–98; RESP 12–18; TEMP 36.4–37.1; O2SAT 93–98; BMI 33.4
[2023-06-21] MEDS: VANCOMYCIN/WATER FOR INJ (PEG) 1.75 GM/350 ML PIGGYBACK IV ×3 (00:30→17:19)
[2023-06-21] MEDS: HYDROMORPHONE 2MG/ML SYRINGE 1 MG IV ×4 (02:11→20:42)
[2023-06-21] MEDS: CEFEPIME HCL 2 GM in 0.9 % SODIUM CHLORIDE 100 ML IV ×3 (03:50→22:15)
[2023-06-21 06:48] LABS: POC Glucose,Bedside 142 (70-110)
--- NOTE | 2023-06-21 06:50 | EXP.POD.CONS ---
Documented by User: Teresa Jamey Hernandez, [employer] 06/21/23 07:32 History of Present Illness *Admission Date: 06/20/23 *History of present illness: Mr. Schwarz is a 43-year-old male with history of hypertension, hyperlipidemia, diabetes, opiate dependence. Previous amputation of part of his right foot. Presented to the ER because of worsening pain, swelling, drainage and redness of his foot. States he is tender up to the mid calf. Has noticed swelling and pain and some drainage over the past 4 days. He has had an ulcer on the bottom of his foot for period of time. Drainage is foul-smelling. Denies any lucila fever or chills however. Significant tenderness in right leg. No chest pain or shortness of breath. Imaging in the ER concerning for what appears to be osteomyelitis of the distal first metatarsal. Also noted to have white count of 11, elevated inflammatory markers with CRP elevated at 26 and ESR of 71. Of note, A1c well-controlled at 5.6. Patient initiated on IV antibiotics, given concern for cellulitis and osteomyelitis, medicine was consulted for admission. Patient was awake upon entering the room this morning. Patient states he was able to get some rest last night. His right foot is elevated on a pillow and dressing is clean dry and intact. The nurse was in the room at the time administering pain medication. The nurse states he is dressing was reinforced a few times in the night. Patient has been n.p.o. since midnight. Glucose has remained stable around 150s and 145 mg/DL this morning. Will be planning to take patient back to surgery this afternoon approximately 12:15 P.M. for right foot incision and drainage, debridement, and wound closure. [facility] Disclaimer: The information contained in this section may have been updated after the patient was seen, as this information can be updated by other users. Medical History Congenital absence of one kidney Diabetes mellitus, type 2 Right great toe amputee Surgical History Hx of tonsillectomy Hx of cholecystectomy Social History Smoking Status: Current every day smoker tobacco type: cigarettes packs per day: 1 second hand exposure: No alcohol intake: never substance use type: former substance user, amphetamines, painkillers and methamphetamine current occupational status: employed Travel in the last 8 weeks: None current occupational exposures/hazards: No caffeine: Yes Review of Systems *Neurologic Neurologic: Reports paresthesias Meds Home Medications and Allergies Home Medications Medication Instructions Recorded Confirmed Type buprenorphine 8 mg-naloxone 2 mg 2 each SL DAILY WITHDRAWAL 02/08/21 06/20/23 History sublingual film bupropion HCl 150 mg 24 hr tablet, 150 mg PO DAILY Mood 06/20/23 06/20/23 History extended release New Prescriptions to Start Prescriptions: Allergies Allergy/AdvReac Type Severity Reaction Status Date / Time Penicillins [PENICILLINS] Allergy Intermediate Rash Verified 07/10/22 21:24 morphine AdvReac Severe hallucinati Verified 07/10/22 21:24 ons Exam (Inpt) Vital signs and Labs for Last 24 Hours: Temp Pulse Resp BP Pulse Ox O2 Del Method 97.7 F 81 18 112/63 97 Room Air 06/21/23 04:00 06/21/23 04:00 06/21/23 04:00 06/21/23 04:00 06/21/23 04:00 06/21/23 06:28 Laboratory Results - last 24 hr 06/20/23 10:50: WBC 11.0 H, RBC 4.22 L, Hgb 12.9 L, Hct 39.8 L, MCV 94.4 H, MCH 30.6, MCHC 32.5, RDW 14.4, Plt Count 367, MPV 8.0, Neut % (Auto) 67.1, Lymph % (Auto) 21.6, [place] % (Auto) 5.5, Eos % (Auto) 5.0, Baso % (Auto) 0.8, Neut # (Auto) 7.4, Lymph # (Auto) 2.4, [place] # (Auto) 0.6, Eos # (Auto) 0.6 H, Baso # (Auto) 0.1, ESR 71 H, Sodium 136, Potassium 4.2, Chloride 102, Carbon Dioxide 29, Anion Gap 9.2, BUN 12, Creatinine 0.70, Estimated Creat Clear 210, Estimated GFR 123, Est GFR ( Amer) 149, Glucose 147 H, Hemoglobin A1c 5.6, Lactate 1.4, Calcium 9.1, Total Bilirubin 0.2, AST 42, ALT 62, Alkaline Phosphatase 180 H, C-Reactive Protein 26.5 H, Total Protein 7.2, Albumin 3.9, Globulin 3.3 H, Albumin/Globulin Ratio 1.2, Triglycerides 142, Cholesterol 189, LDL Cholesterol Direct 91.42 L, VLDL Cholesterol 28, HDL Cholesterol 47, Cholesterol/HDL Ratio 4.0 H 06/20/23 15:35: POC Glucose 115 H 06/20/23 21:20: POC Glucose 158 H 06/21/23 06:40: POC Glucose 142 H I & O for Labs for Last 24 Hours: Intake & Output 06/18/23 06/19/23 06/20/23 06/21/23 23:59 23:59 23:59 23:59 Intake Total 1480 / 1480 240 / 240 Output Total 0 / 0 1400 / 1400 Balance 1480 / 1480 -1160 / -1160 Weight 236 lb 15.951 oz 238 lb 12.17 oz Constitutional: Present no acute distress, obese and cooperative Head: Present normocephalic Neck: Present normal inspection Respiratory: Present normal respiratory effort Cardiac: Present posterior tibial pulses present and pedal pulses present GI: Present soft Rectal (male): Present deferred (male): Present deferred Extremities: Present tenderness, normal capillary refill and edema Skin: Present erythema and wounds Comment:: Patient s/p incision and drainage and open TMA, right lower extremity still has some mild erythema, and edema noted. Proved some from yesterday. Dressing remains dry and intact, right foot elevated on a pillow. Patient n.p.o. for surgery today for right foot TMA site wound closure today. Neuro: Present Motor Function Intact, oriented x 3 and moves all extremities Ankle: right: erythema, right: swelling and right: tenderness Feet/Toes: right: amputation (S/P Open TMA ) Inspection: Present skin break (Right foot surgical site s/p TMA for OM; dressing intact) Pulses: L dorsalis pedis pulse: normal, R dorsalis pedis pulse: normal, L posterior tibial pulse: normal and R posterior tibial pulse: normal CFT: normal: CFT Results Labs 06/21/23 07:31 06/20/23 10:50 Labs: Abnormal lab results 06/20/23 06/20/23 06/20/23 Range/Units 10:50 15:35 21:20 WBC 11.0 H (4.8-10.8) K/mm3 RBC 4.22 L (4.60-6.20) M/mm3 Hgb 12.9 L (14.1-18.0) g/dL Hct 39.8 L (42.0-52.0) % MCV 94.4 H (80-94) fl Eos # (Auto) 0.6 H (0.0-0.4) K/mm3 ESR 71 H (0-15) mm/hr Glucose 147 H (74-100) mg/dl POC Glucose 115 H 158 H (70-110) Alkaline Phosphatase 180 H (38-126) U/L C-Reactive Protein 26.5 H (0-4) mg/L Globulin 3.3 H (1.3-3.2) g/dL LDL Cholesterol Direct 91.42 L (100-129) mg/dL Cholesterol/HDL Ratio 4.0 H (1-3.5) 06/21/23 Range/Units 06:40 WBC (4.8-10.8) K/mm3 RBC (4.60-6.20) M/mm3 Hgb (14.1-18.0) g/dL Hct (42.0-52.0) % MCV (80-94) fl Eos # (Auto) (0.0-0.4) K/mm3 ESR (0-15) mm/hr Glucose (74-100) mg/dl POC Glucose 142 H (70-110) Alkaline Phosphatase (38-126) U/L C-Reactive Protein (0-4) mg/L Globulin (1.3-3.2) g/dL LDL Cholesterol Direct (100-129) mg/dL Cholesterol/HDL Ratio (1-3.5) H & H 06/20/23 Range/Units 10:50 Hgb 12.9 L (14.1-18.0) g/dL Hct 39.8 L (42.0-52.0) % All other labs normal. Assessment and Plan *Assessment and plan (1) Cellulitis of right foot: Status: Acute Category: Medical Code(s): L03.115 - Cellulitis of right lower limb (2) Gas gangrene of foot: Status: Acute Category: Medical Code(s): A48.0 - Gas gangrene (3) Osteomyelitis of right foot: Status: Acute Qualifiers: Osteomyelitis type: other chronic Qualified Code(s): M86.671 - Other chronic osteomyelitis, right ankle and foot Category: Medical Code(s): M86.9 - Osteomyelitis, unspecified (4) Diabetic foot infection: Status: Acute Category: Medical Code(s): E11.628 - Type 2 diabetes mellitus with other skin complications; L08.9 - Local infection of the skin and subcutaneous tissue, unspecified (5) Ulcer of right foot due to type 2 diabetes mellitus: Status: Acute Category: Medical Code(s): E11.621 - Type 2 diabetes mellitus with foot ulcer; L97.519 - Non-pressure chronic ulcer of other part of right foot with unspecified severity (6) Class 1 obesity: Status: Acute Category: Medical Code(s): E66.9 - Obesity, unspecified Plan Right diabetic foot infection: -Discussed differential diagnosis: Gas gangrene, DFU, cellulitis, osteomyelitis -X-rays reviewed: Gas to distal hallux and medial foot -CT reviewed: Gas to distal hallux, medial foot with questionable cortical erosions to the first metatarsal, third metatarsal head has some irregularities could be from osteomyelitis versus pathological fracture secondary to infection. -06/20/23, labs: wbc 11.0, esr 71, crp 26.5, cr 0.7, gfr 123, glucose 147 CT Report FINDINGS 06/20/23: There are postoperative changes from amputation of the great toe. There has been interval amputation of the 2nd digit at the 2nd metatarsal. New bony irregularity is seen at the distal head of the 3rd metatarsal with probable erosions in this region worrisome for osteomyelitis in the head of the 3rd metatarsal. There is soft tissue edema or cellulitis of the distal medial foot. Foci of soft tissue air is seen in the distal medial foot. IMPRESSION: Interval amputation of the 2nd digit. New bony erosion of the head of the 3rd metatarsal worrisome for osteomyelitis. New soft tissue air in the distal medial foot, may represent soft tissue ulcer but gas-forming infection is not excluded. Pre-op: 43 DM male presents to the ER today for right foot cellulitis and infection. Labs and new images were discussed with the patient. We discussed conservative versus surgical treatment options. We discussed conservative care including continued oral vs IV antibiotics and local wound care versus surgical incision and drainage. Recommend urgent same-day I&D for gas infection. Discussed more definitive amputation addressing the cortical erosions at the first metatarsal head, third metatarsal head osseous changes and the overall bony parabola to help prevent recurrent plantar ulcers and diabetic foot infections. Patient understands that they could have wound healing complications including delayed healing and continued/worsening infection. We discussed that if the wound does not heal, it is possible that they may need further debridement. Patient understands if infection spreads into the bone, it may warrant proximal amputation and could result in further loss of digits, loss of partial foot or loss of leg (BKA). We discussed the risks and benefits in great detail. Other surgical risks include: prolonged pain and swelling, further infection requiring oral or IV antibiotics, delay in healing of soft tissue or bone, nerve or blood vessel damage, CRPS/RSD, DVT/PE, anesthesia complications, and even . All questions answered. Patient verbalized understanding. Consent obtained. 06/21/23: Plan: -Patient is S/P Open TMA on Right foot from 06/20/23 -NPO now and since midnight -IV antibiotics broad-spectrum: Vanco, cefepime -Plan for surgery today @12:15 for right foot incision and drainage, debridement, and wound closure. -We discussed the procedure for today and all questions were answered. Verbal and Surgical consent has been obtained and placed on patient's chart. Right leg Marked for surgery. -Will follow Thank you for involving us in the patient's care. Will plan to follow. Documented by User: Pati Chandler DPM 06/21/23 08:30 History of Present Illness *Reason for visit:: Right DM foot infection, gas *History of present illness: Mr. Schwarz is a 43-year-old male with history of hypertension, hyperlipidemia, diabetes, opiate dependence. Previous amputation of part of his right foot. Presented to the ER because of worsening pain, swelling, drainage and redness of his foot. States he is tender up to the mid calf. Has noticed swelling and pain and some drainage over the past 4 days. He has had an ulcer on the bottom of his foot for period of time. Drainage is foul-smelling. Denies any lucila fever or chills however. Significant tenderness in right leg. No chest pain or shortness of breath. Imaging in the ER concerning for what appears to be osteomyelitis of the distal first metatarsal. Also noted to have white count of 11, elevated inflammatory markers with CRP elevated at 26 and ESR of 71. Of note, A1c well-controlled at 5.6. Patient initiated on IV antibiotics, given concern for cellulitis and osteomyelitis, medicine was consulted for admission. Patient was awake upon entering the room this morning. Patient states he was able to get some rest last night. His right foot is elevated on a pillow and dressing is clean dry and intact. The nurse was in the room at the time administering pain medication. The nurse states he is dressing was reinforced a few times in the night. Patient has been n.p.o. since midnight. Glucose has remained stable around 150s and 145 mg/DL this morning. Will be planning to take patient back to surgery this afternoon approximately 12:15 P.M. for right foot incision and drainage, debridement, and wound closure. Dr Chandler: Patient was seen and evaluated by [employer] and myself this morning. He reports pain has improved. Reports redness and swelling feels better. He does not want a wound VAC. He was amenable to surgery this afternoon for repeat washout, incision and drainage and possible closure of the wound depending on tissue quality. Labs reviewed white count up from yesterday could be secondary to surgery or early atelectasis. Will obtain incentive spirometer. Plan for surgery today, NPO now. [facility] Medical History Congenital absence of one kidney Diabetes mellitus, type 2 Right great toe amputee Surgical History Hx of tonsillectomy Hx of cholecystectomy Social History Smoking Status: Current every day smoker tobacco type: cigarettes packs per day: 1 second hand exposure: No alcohol intake: never substance use type: former substance user, amphetamines, painkillers and methamphetamine current occupational status: employed Travel in the last 8 weeks: None current occupational exposures/hazards: No caffeine: Yes Meds Home Medications and Allergies Home Medications Medication Instructions Recorded Confirmed Type buprenorphine 8 mg-naloxone 2 mg 2 each SL DAILY WITHDRAWAL 02/08/21 06/20/23 History sublingual film bupropion HCl 150 mg 24 hr tablet, 150 mg PO DAILY Mood 06/20/23 06/20/23 History extended release New Prescriptions to Start Prescriptions: Allergies Allergy/AdvReac Type Severity Reaction Status Date / Time Penicillins [PENICILLINS] Allergy Intermediate Rash Verified 07/10/22 21:24 morphine AdvReac Severe hallucinati Verified 07/10/22 21:24 ons Results Labs 06/21/23 07:31 06/20/23 10:50 Assessment and Plan *Assessment and plan (1) Cellulitis of right foot: Status: Acute Category: Medical Code(s): L03.115 - Cellulitis of right lower limb (2) Gas gangrene of foot: Status: Acute Category: Medical Code(s): A48.0 - Gas gangrene (3) Osteomyelitis of right foot: Status: Acute Qualifiers: Osteomyelitis type: other chronic Qualified Code(s): M86.671 - Other chronic osteomyelitis, right ankle and foot Category: Medical Code(s): M86.9 - Osteomyelitis, unspecified (4) Diabetic foot infection: Status: Acute Category: Medical Code(s): E11.628 - Type 2 diabetes mellitus with other skin complications; L08.9 - Local infection of the skin and subcutaneous tissue, unspecified (5) Ulcer of right foot due to type 2 diabetes mellitus: Status: Acute Category: Medical Code(s): E11.621 - Type 2 diabetes mellitus with foot ulcer; L97.519 - Non-pressure chronic ulcer of other part of right foot with unspecified severity (6) Class 1 obesity: Status: Acute Category: Medical Code(s): E66.9 - Obesity, unspecified
[2023-06-21 07:44] LABS: Basophils # 0.1 K/mm3 (0-0.2); Basophils % 0.5 % (0.1-2.0); Eosinophils % 0.2 % (0.1-12.0); Hematocrit 36.8 % (42.0-52.0); Hemoglobin 11.9 g/dL (14.1-18.0); Lymphocytes # 2.2 K/mm3 (0.7-4.5); Lymphocytes % 14.8 % (10-50); Mean Corpuscular HGB Conc 32.2 g/dL (31.8-35.4); Mean Corpuscular Hemoglobin 30.8 pg (27.0-31.2); Mean Corpuscular Volume 95.6 fl (80-94); Mean Platelet Volume 8.8 fl (7.4-10.4); Monocytes # 0.9 K/mm3 (0.1-1.0); Monocytes % 5.7 % (1.7-9.3); Neutrophils # 11.9 K/mm3 (1.8-7.8); Neutrophils % 78.9 % (37.0-80.0); Platelet Count 439 K/mm3 (142-424); Red Blood Count 3.85 M/mm3 (4.60-6.20); Red Cell Distribution Width 14.5 % (11.5-17.5); White Blood Count 15.1 K/mm3 (4.8-10.8)
[2023-06-21 07:50] LABS: MANUAL DIFFERENTIAL MANUAL DIFFERENTIAL (MANUAL DIFF)
[2023-06-21 08:16] LABS: Erythrocyte Sedimentation Rate 80 mm/hr (0-15)
--- NOTE | 2023-06-21 08:23 | P.PN_ITS ---
Subjective *Date: 06/21/23 *Time: 20:46 Interval history: Afebrile overnight. Continues to have significant pain in taken for surgery this morning. No nausea or vomiting or chest pain. the foot. Medical Exam Vital signs and Labs for Last 24 Hours: Vital Signs Temp Pulse Pulse Resp BP BP Pulse Ox 06/21/23 07:33 98.1 F 82 18 121/67 97 06/21/23 06:28 06/21/23 05:00 06/21/23 04:00 97.7 F 81 18 112/63 97 06/21/23 03:00 06/21/23 01:00 06/20/23 23:00 06/20/23 22:50 97.9 F 81 16 125/76 98 06/20/23 21:50 97.7 F 87 16 127/73 99 06/20/23 21:00 06/20/23 20:50 98.0 F 85 15 130/75 97 06/20/23 20:00 06/20/23 19:50 98.3 F 82 16 138/72 98 06/20/23 18:50 98.0 F 84 16 132/78 96 06/20/23 18:20 98.0 F 88 16 124/75 99 06/20/23 18:07 06/20/23 17:50 97.9 F 82 16 140/76 98 06/20/23 17:20 97.9 F 82 18 127/76 96 06/20/23 17:00 06/20/23 16:50 98.0 F 81 16 133/70 94 L 06/20/23 16:35 98.0 F 82 16 122/69 92 L 06/20/23 16:20 98.0 F 84 17 125/65 96 06/20/23 16:05 97.9 F 84 16 134/79 98 06/20/23 16:00 98.1 F 82 17 127/68 98 06/20/23 15:50 81 18 129/66 94 L 06/20/23 15:40 84 18 152/58 H 100 06/20/23 15:38 97.6 F 87 16 124/74 06/20/23 15:30 97.6 F 87 16 124/74 99 06/20/23 12:20 98.1 F 64 18 159/83 H 99 06/20/23 12:07 98.2 F 93 H 16 132/73 06/20/23 11:12 93 H 132/73 96 06/20/23 10:25 98.2 F 97 H 16 169/82 H 97 O2 Del Method 06/21/23 07:33 Room Air 06/21/23 06:28 Room Air 06/21/23 05:00 Room Air 06/21/23 04:00 Room Air 06/21/23 03:00 Room Air 06/21/23 01:00 Room Air 06/20/23 23:00 Room Air 06/20/23 22:50 Room Air 06/20/23 21:50 Room Air 06/20/23 21:00 Room Air 06/20/23 20:50 Room Air 06/20/23 20:00 Room Air 06/20/23 19:50 Room Air 06/20/23 18:50 Room Air 06/20/23 18:20 Room Air 06/20/23 18:07 Room Air 06/20/23 17:50 Room Air 06/20/23 17:20 Room Air 06/20/23 17:00 Room Air 06/20/23 16:50 Room Air 06/20/23 16:35 Room Air 06/20/23 16:20 Room Air 06/20/23 16:05 Room Air 06/20/23 16:00 Room Air 06/20/23 15:50 Room Air 06/20/23 15:40 Room Air 06/20/23 15:38 06/20/23 15:30 Room Air 06/20/23 12:20 Room Air 06/20/23 12:07 06/20/23 11:12 Room Air 06/20/23 10:25 Room Air Intake and Output 06/20/23 06/21/23 06/21/23 23:59 07:59 15:59 Intake Total 480 / 1720 240 / 240 Output Total 0 / 700 1400 / 1400 Balance 480 / 1020 -1160 / -1160 Intake: Intake, Oral Amount 480 / 720 240 / 240 Output: Output, Urine Amount 0 / 700 1400 / 1400 Other: Number of Voids 2 Number of Unmeasured Voids 0 Weight 107.5 kg 108.3 kg Patient Weight 06/21/23 23:59 Weight 108.3 kg Laboratory Results - last 24 hr 06/20/23 10:50: WBC 11.0 H, RBC 4.22 L, Hgb 12.9 L, Hct 39.8 L, MCV 94.4 H, MCH 30.6, MCHC 32.5, RDW 14.4, Plt Count 367, MPV 8.0, Neut % (Auto) 67.1, Lymph % (Auto) 21.6, [place] % (Auto) 5.5, Eos % (Auto) 5.0, Baso % (Auto) 0.8, Neut # (Auto) 7.4, Lymph # (Auto) 2.4, [place] # (Auto) 0.6, Eos # (Auto) 0.6 H, Baso # (Auto) 0.1, ESR 71 H, Sodium 136, Potassium 4.2, Chloride 102, Carbon Dioxide 29, Anion Gap 9.2, BUN 12, Creatinine 0.70, Estimated Creat Clear 210, Estimated GFR 123, Est GFR ( Amer) 149, Glucose 147 H, Hemoglobin A1c 5.6, Lactate 1.4, Calcium 9.1, Total Bilirubin 0.2, AST 42, ALT 62, Alkaline Phosphatase 180 H, C-Reactive Protein 26.5 H, Total Protein 7.2, Albumin 3.9, Globulin 3.3 H, Albumin/Globulin Ratio 1.2, Triglycerides 142, Cholesterol 189, LDL Cholesterol Direct 91.42 L, VLDL Cholesterol 28, HDL Cholesterol 47, Cholesterol/HDL Ratio 4.0 H 06/20/23 15:35: POC Glucose 115 H 06/20/23 21:20: POC Glucose 158 H 06/21/23 06:40: POC Glucose 142 H 06/21/23 07:31: WBC 15.1 H D, RBC 3.85 L, Hgb 11.9 L, Hct 36.8 L, MCV 95.6 H, MCH 30.8, MCHC 32.2, RDW 14.5, Plt Count 439 H, MPV 8.8, Neut % (Auto) 78.9, Lymph % (Auto) 14.8, [place] % (Auto) 5.7, Eos % (Auto) 0.2, Baso % (Auto) 0.5, Neut # (Auto) 11.9 H, Lymph # (Auto) 2.2, [place] # (Auto) 0.9, Eos # (Auto) 0.0, Baso # (Auto) 0.1, ESR 80 H I & O for Labs for Last 24 Hours: Intake & Output 06/18/23 06/19/23 06/20/23 06/21/23 23:59 23:59 23:59 23:59 Intake Total 1480 / 1720 240 / 240 Output Total 0 / 700 1400 / 1400 Balance 1480 / 1020 -1160 / -1160 Weight 107.5 kg 108.3 kg Constitutional: Present no acute distress, obese and chronically ill appearing Head: Present atraumatic ENT: Present normal exam Neck: Present normal inspection Respiratory: Present normal respiratory effort; Absent rhonchi, wheezes or crackles Cardiac: Present Reg Rate and Rhythm GI: Present soft and normal bowel sounds; Absent distention or tenderness Extremities: Present other Comment:: Right foot in postsurgical wrap. Drain in place. Skin: Present intact and erythema (Right lower extremity) Neuro: Present Grossly Intact, alert, awake, oriented x 3 and moves all extremities Assessment and Plan *Assessment and plan (1) Osteomyelitis of right foot: Status: Acute Qualifiers: Osteomyelitis type: other chronic Qualified Code(s): M86.671 - Other chronic osteomyelitis, right ankle and foot Category: Medical Code(s): M86.9 - Osteomyelitis, unspecified (2) Class 1 obesity: Status: Acute Category: Medical Code(s): E66.9 - Obesity, unspecified (3) Diabetic foot infection: Status: Acute Category: Medical Code(s): E11.628 - Type 2 diabetes mellitus with other skin complications; L08.9 - Local infection of the skin and subcutaneous tissue, unspecified (4) Gas gangrene of foot: Status: Acute Category: Medical Code(s): A48.0 - Gas gangrene (5) Ulcer of right foot due to type 2 diabetes mellitus: Status: Acute Category: Medical Code(s): E11.621 - Type 2 diabetes mellitus with foot ulcer; L97.519 - Non-pressure chronic ulcer of other part of right foot with unspecified severity Plan 43-year-old male with previous amputation of right foot. Presented to the ER with pain and swelling. Concern for osteomyelitis. Discussed case with ER physician request admission for podiatry consult, IV antibiotics, and possible surgical evaluation given concern for osteomyelitis on imaging. Medicine agreed to admit. Podiatry consulted. Taken again to the OR today for repeat procedure, transmetatarsal amputation. Monitor overnight, continues to require inpatient management. Problems addressed as follows: Osteomyelitis of right foot Cellulitis -Podiatry consulted, appreciate their recommendations. Discussed case this morning. Status post I&D yesterday. Taken again for washout and closure of the wound today. Recommendations as follows: -- Continue vancomycin and cefepime. Plan to transition to doxycycline and levofloxacin at discharge. --Anticipate discharge tomorrow. -- PT for gait training. -- NWB to RLE with posterior splint and crutches/rolling knee scooter. -- Follow-up with Dr Chandler/Podiatry outpatient in one week for EMILY drain removal and dressing change. -White cell count elevated to 15. Remains afebrile. ESR elevated at 80, CRP of 18. Repeat CBC, CMP, magnesium ordered for the morning. -Tissue culture pending -Toradol IV 30 mg every 6 hours as needed for pain -Initiate gabapentin 100 mg 3 times daily. -Continue buprenorphine, add oxycodone 10/325 every 6 hours as needed for severe breakthrough pain. History of diabetes, A1c currently controlled in the low 5 range. Will continue fingersticks ACHS and sliding scale insulin. Chronic opiate dependence: Continue buprenorphine per home regimen. Continue bupropion 150 mg daily for mood Obesity complicates all aspects of his care Therapy eval after surgery to assist with mobility Full code Holding anticoagulation in the setting of active surgical intervention Diabetic diet
[2023-06-21 08:31] LABS: Lymphocytes % 13 % (10-50); Monocytes % 6 % (2-9); Neutrophils % 79 % (42-76); Total Cells Counted 100
[2023-06-21 08:39] LABS: Anisocytosis 1+; Platelet Estimate Normal
[2023-06-21 08:40] LABS: Macrocytosis 1+
[2023-06-21] MEDS: buPROPion HCl SR 150MG TAB 150 MG PO (09:16)
[2023-06-21] MEDS: BUPRENORPHINE/NALOXONE 8MG/2MG ODT 2 EACH SL (09:16)
--- NOTE | 2023-06-21 09:26 | P.PNANES_ITS ---
[facility] Anesthesia Record Part II Anesthesia Record Part II Discharge Time: 16:00 Destination: Medical Surgical Department PACU nurse assessment reviewed?: Yes Patient Condition:: Good Anesthesia Complications:: None Swallowing reflex intact?: Yes Airway Patency: Patent Cyanosis?: No Blood Pressure: 127/68 SaO2: 98 Respiratory Rate: 17 Pulse Rate: 82 Temperature: 98.1 F Mental Status: Alert & Oriented Pain level:: 0 Nausea and/or vomitting:: None Intake, IV Amount: 0 Hydration: Adequate
[2023-06-21 10:12] LABS: POC Glucose,Bedside 147 (70-110)
[2023-06-21] MEDS: OXYCODONE 5MG IMMEDIATE RELEASE TABLET 10 MG PO ×3 (11:34→22:14)
[2023-06-21 11:44] LABS: Chloride 104 mmol/L (98-107)
[2023-06-21 11:45] LABS: Potassium 4.8 mmoL/L (3.5-5.1); Sodium 136 mmol/L (136-145)
[2023-06-21 11:47] LABS: Alanine Aminotransferase 57 U/L (12-78); Alkaline Phosphatase 170 U/L (38-126); Aspartate Amino Transferase 41 U/L (17-59); Bilirubin,Total 0.2 mg/dl (0.2-1.3); Blood Urea Nitrogen 14 mg/dl (9-20); Creatinine Clearance Estimated 182 mL/min (50-200); Estimated Glomerular Filt Rate 106 ml/min (>60); GFR (African American) 128 ML/MIN (>60)
[2023-06-21 11:48] LABS: Albumin Level 3.4 g/dl (3.5-5.0); Albumin/Globulin Ratio 1.1 (1.1-1.8); Anion Gap 6.8 mEq/L (5-15); Calcium 8.5 mg/dl (8.4-10.2); Carbon Dioxide 30 mmol/L (22.0-30.0); Globulin 3.1 g/dL (1.3-3.2); Glucose 120 mg/dl (74-100); Magnesium 2.1 mg/dl (1.6-2.3); Total Protein,Serum 6.5 g/dl (6.3-8.2)
[2023-06-21 12:01] LABS: C-Reactive Protein 18.8 mg/L (0-4)
--- NOTE | 2023-06-21 12:32 | HMH.PTEV ---
Physical Therapy Evaluation Rehab PT IP Evaluation Start: 06/21/23 08:21 Freq: ONCE Status: Active Protocol: Document 06/21/23 12:08 BARB (Rec: 06/21/23 12:32 PHORNE [id number]) Subjective/History History History The patient is a 43 yom that presents to [facility] s/p transmetatarsal amputation and is NWB to the E. Per H&P Mr. Schwarz is a 43-year-old male with history of hypertension, hyperlipidemia, diabetes, opiate dependence. Previous amputation of part of his right foot. Presented to the ER because of worsening pain, swelling, drainage and redness of his foot. States he is tender up to the mid calf. Has noticed swelling and pain and some drainage over the past 4 days. He has had an ulcer on the bottom of his foot for period of time. Drainage is foul-smelling. Denies any lucila fever or chills however. Significant tenderness in right leg. No chest pain or shortness of breath. Imaging in the ER concerning for what appears to be osteomyelitis of the distal first metatarsal. Also noted to have white count of 11, elevated inflammatory markers with CRP elevated at 26 and ESR of 71. Of note, A1c well-controlled at 5.6. Patient initiated on IV antibiotics, given concern for cellulitis and osteomyelitis, medicine was consulted for admission. Subjective Subjective Patient is agreeable to PT and oriented x4. Patient reports that he understands his WB precautions and that he has used crutches before. The patient reports that he lives with his in an apartment and must traverse 15 stairs to enter. Rehab PT IP Eval Objective Appearance Patient Behavior Appropriate,Patient Baseline Patient Orientation Person,Place,Time,Birthday Difficulty following instructions none Speech Pattern Clear,Patient Baseline Ambulation Patient Able to Ambulate Yes Ambulation Observation IP General Gait Pattern Observation Antalgic Gait Ambulation Distance (feet) 20 Ambulation Assistive Device Rolling Walker Ambulation Ability Contact Guard/Hand Hold Balance Ability to Arise Able, uses arms to help Sitting Balance Steady, safe Standing Balance Narrow stance w/o support Dynamic Sitting Balance Ability Normal Dynamic Standing Balance Ability Normal Transfers Bed Transfer Ability Independent Sit to Stand Bed Transfer Ability Independent Rehab PT IP prob,goals,plan Problems Date of Evaluation: 06/21/23 Discharge Plan PT Discharge Plan Patient presents for Initial Evaluation and demonstrates no apparent safety concerns with use of AD. The patient ambulated with RW and ambulated with no safety concerns. The patient was educated on WB Status and understood and followed these precautions. The patient is getting a pair of crutches later today. Skilled PT is not indicated for this patient. The patient presents appropriately for discharge to home when deemed medically stbale. Eval Complexity Eval Charge Codes 50332 - High Complexity PHYSICIAN CERTIFICATION: I certify the specified therapy services for Kuldip Schwarz are required, authorized, and reviewed every 30 days.
--- NOTE | 2023-06-21 12:42 | P.PNANES_ITS ---
[facility] Disclaimer: The information contained in this section may have been updated after the patient was seen, as this information can be updated by other users. Medical History Congenital absence of one kidney Diabetes mellitus, type 2 Right great toe amputee Surgical History Hx of tonsillectomy Hx of cholecystectomy Social History Smoking Status: Current every day smoker tobacco type: cigarettes packs per day: 1 second hand exposure: No alcohol intake: never substance use type: former substance user, amphetamines, painkillers and methamphetamine current occupational status: employed Travel in the last 8 weeks: None current occupational exposures/hazards: No caffeine: Yes [facility] Anesthesia Checklist Patient Identification Patient Identification: Arm Band Structural Data Admitted From: Home Planned Operative Procedure/s: I&D Right Foot Consent for Planned Operative Procedure(s) Verified: Yes Verified Documents: Surgical Consent NPO Status Verified Time NPO: 00:00 Additional verifications Anesthesia Reactions: No Airway Assessment Mallampati Score:: Class II C-Spine Mobility Assessed: Yes TMJ Mobility Assessed: Yes Dentition: Good Dentition Neurological Assessment Level of Consciousness: Awake and Alert Anesthesia Plan Anesthesia Risk discussed: Yes Anesthesia Plan: Verified ASA Class: III Anesthesia Type: General
[2023-06-21] MEDS: GENTAMICIN 80 MG/2 ML VIAL (14:22)
[2023-06-21] MEDS: VANCOMYCIN 1000MG VIAL 1000 MG (14:22)
--- NOTE | 2023-06-21 14:45 | P.OP_ITS ---
Date of procedure: 06/21/23 Pre-op Diagnosis:: Right diabetic foot infection Diabetic foot ulcer Cellulitis Gas gangrene S/P right foot I&D and open TMA 06/19/20 Post-op Diagnosis:: Same Procedure performed:: Right foot I&D Wide excisional wound debridement Wound closure with adjacent soft tissue rearrangement/rotational flap EMILY drain application, posterior splint Surgeon:: Pati Chandler DPM ENGINEERING DOCUMENTATION SPECIALIST:: Other (Steven Teresa) Anesthesia: GETA Estimated blood loss (mL): 20 Clinical Note:: See consult/progress note. Patient underwent an urgent right foot incision and drainage with open transmetatarsal amputation 06/19/2020 due to gas gangrene. Patient was a planned staged I&D, wound debridement with secondary wound closure. Operative findings:: Open transmetatarsal amputation. Remaining metatarsal heads looked hard and intact with no obvious signs of osteomyelitis. There was coagulated blood and hematoma at the distal aspect of the wound. No purulence, malodor or infectious drainage noted. Wound was explored and there was a sinus track 6 cm plantar at the third metatarsal. No purulence or drainage expressed. Overall tissue appeared healthy with good bleeding and no further signs of gas gangrene, necro tic tissue or skin breakdown. Remaining tissue was 100% granular. Wound and skin adequate for secondary closure. Operative note:: On this date and time patient was deemed an appropriate surgical candidate. With informed consent signed, the patient was taken to the operating theater. The patient was positioned supine. LMA anesthesia was induced. No tourniquet. The right lower extremity was prepped and draped in normal sterile fashion Right foot incision and drainage: Attention was directed to the right open transmetatarsal amputation site. Retention sutures were removed. 15 blade was used to make an incision over the plantar foot 3 cm deep. Wound explored full- thickness through skin and subcu into deep fascia. Sinus tracking 6 cm deep noted at the plantar aspect of the third metatarsal. No purulence or new signs of infection noted. Wide excisional wound debridement: 15 blade forceps were then used to sharply excisionally debride nonviable soft tissue full-thickness including extensor and flexor tendons down to the level of the metatarsal bones. Wound was then flushed with 3L of gentamicin irrigation. Wound explored and no further signs of infection noted. Vancomycin powder was inserted over the metatarsal heads. Application of EMILY drain, wound closure with rotational flap: A 7 flat EMILY drain was then inserted to the medial aspect of the wound which extended into the sinus tract. Healthy bleeding noted. Bleeding controlled. Vessels were ligated with electrocautery. Next the deep tissue was reapproximated over the metatarsal head so there was no exposed bone. Vicryl was used to reapproximate subcutaneous tissue. There was a defect on the dorsal central wound secondary to the previous surgery from the extensive I&D and wound debridement. The TMA incision was extended full-thickness in order to rotate to the plantar skin dorsally and medially to cover the soft tissue defect. Plantar skin was successfully used as a derotational skin flap and secured with nylon and skin ani. There was no defect post closure. The wound was cleansed. Remaining vancomycin powder was sprinkled along the incision. Betadine soaked Xeroform and gauze applied to the incision followed by dry sterile dressing. A below-knee posterior splint was then applied to the right foot. The patient was awoken from anesthesia and transferred to recovery with vital signs stable and neurovascular status intact. Patient appeared to tolerate procedure and anesthesia well without complication. Materials: Suture guard (Zoran-guard) x1, Nylon, Skin ani, 7 flat EMILY drain Plan: Patient is to maintain dressing clean dry and intact. Continue IV antibiotics today. Will need oral abx: Doxy 100mg BID and Levo 750mg daily x 14days. Plan for discharge home tomorrow if medically stable from Hospitalist stand point. Patient is stable for d/c from Podiatry stand point. PT for gait training. NWB to RLE with posterior splint and crutches/rolling knee scooter. Follow-up with Dr Chandler/Podiatry outpatient in one week for EMILY drain removal and dressing change. Condition: stable Disposition: floor Specimens:: Right foot wound culture Complications:: None
--- NOTE | 2023-06-21 14:56 | P.PNANES_ITS ---
[facility] Anesthesia Record Part I Anesthesia Record I Intake, IV Amount: 200 Hydration: Adequate Estimated blood loss (mL): 19 Urine output (mL): 0 Blood Products used (#): none Blood Pressure: 122/76 SaO2: 94 Pulse Rate: 81 Airway Patency: Patent Respiratory Rate: 16 Temperature: 98.8 F Patient is:: Drowsy and Stable Stable to PACU at:: 14:45
[2023-06-21 14:57] LABS: POC Glucose,Bedside 207 (70-110)
--- NOTE | 2023-06-21 15:06 | PC.NURSE ---
Pt. is aox4, up with crutches and right foot boot, on RA, 20g L AC for abx, pain meds switched to oral with iv pain meds for breakthrough pain.
[2023-06-21] MEDS: humaLOG 100 UNITS/ML 3ML VIAL (SSI) SQ ×2 (16:17→21:45)
[2023-06-21 16:43] LABS: Vancomycin,Trough 16.7 ug/mL (5.0-10.0)
[2023-06-21] MEDS: ONDANSETRON 4MG/2ML VIAL 4 MG IV (20:43)
[2023-06-21 20:49] LABS: Vancomycin,Peak 44.1 ug/ml (11-39)
[2023-06-21 20:56] LABS: POC Glucose,Bedside 223 (70-110)
[2023-06-21] MEDS: GABAPENTIN 100MG CAPSULE 100 MG PO (22:13)
[2023-06-22] VITALS: BP 116/61; PULSE 89; RESP 17; TEMP 36.6; O2SAT 97
[2023-06-22] MEDS: HYDROMORPHONE 2MG/ML SYRINGE 1 MG IV ×2 (00:48→06:20)
[2023-06-22] MEDS: VANCOMYCIN/WATER FOR INJ (PEG) 1.75 GM/350 ML PIGGYBACK IV ×2 (00:49→07:51)
[2023-06-22] MEDS: OXYCODONE 5MG IMMEDIATE RELEASE TABLET 10 MG PO ×2 (02:44→07:50)
[2023-06-22 04:00] VITALS: BP 116/72; PULSE 76; RESP 16; TEMP 36.6; O2SAT 94; BMI 34.4
[2023-06-22] MEDS: CEFEPIME HCL 2 GM in 0.9 % SODIUM CHLORIDE 100 ML IV (06:21)
[2023-06-22 07:01] LABS: POC Glucose,Bedside 123 (70-110)
[2023-06-22 07:35] LABS: POC Glucose,Bedside 111 (70-110)
[2023-06-22] MEDS: buPROPion HCl SR 150MG TAB 150 MG PO (07:49)
[2023-06-22] MEDS: GABAPENTIN 100MG CAPSULE 100 MG PO (07:50)
[2023-06-22] MEDS: BUPRENORPHINE/NALOXONE 8MG/2MG ODT 2 EACH SL (07:50)
[2023-06-22 08:00] VITALS: BP 128/67; PULSE 77; RESP 16; TEMP 36.8; O2SAT 95
--- NOTE | 2023-06-22 08:04 | EXP.DC.SUM ---
General Admission date:: 06/20/23 Discharge date: 06/22/23 HPI HPI HPI: Mr. Schwarz is a 43-year-old male with history of hypertension, hyperlipidemia, diabetes, opiate dependence. Previous amputation of part of his right foot. Presented to the ER because of worsening pain, swelling, drainage and redness of his foot. States he is tender up to the mid calf. Has noticed swelling and pain and some drainage over the past 4 days. He has had an ulcer on the bottom of his foot for period of time. Drainage is foul-smelling. Denies any lucila fever or chills however. Significant tenderness in right leg. No chest pain or shortness of breath. Imaging in the ER concerning for what appears to be osteomyelitis of the distal first metatarsal. Also noted to have white count of 11, elevated inflammatory markers with CRP elevated at 26 and ESR of 71. Of note, A1c well-controlled at 5.6. Patient initiated on IV antibiotics, given concern for cellulitis and osteomyelitis, medicine was consulted for admission. Patient was awake upon entering the room this morning. Patient states he was able to get some rest last night. His right foot is elevated on a pillow and dressing is clean dry and intact. The nurse was in the room at the time administering pain medication. The nurse states he is dressing was reinforced a few times in the night. Patient has been n.p.o. since midnight. Glucose has remained stable around 150s and 145 mg/DL this morning. Will be planning to take patient back to surgery this afternoon approximately 12:15 P.M. for right foot incision and drainage, debridement, and wound closure. Dr Chandler: Patient was seen and evaluated by COMPUTER FORWARDING SYSTEM MARKUP CLERK and myself this morning. He reports pain has improved. Reports redness and swelling feels better. He does not want a wound VAC. He was amenable to surgery this afternoon for repeat washout, incision and drainage and possible closure of the wound depending on tissue quality. Labs reviewed white count up from yesterday could be secondary to surgery or early atelectasis. Will obtain incentive spirometer. Plan for surgery today, NPO now. Hospital Course Hospital Course Hospital Course: 43-year-old male with previous amputation of right foot. Presented to the ER with pain and swelling. Concern for osteomyelitis. Discussed case with ER physician request admission for podiatry consult, IV antibiotics, and possible surgical evaluation given concern for osteomyelitis on imaging. Medicine agreed to admit. Podiatry consulted. Taken again to the OR on the in the for debridement and then serial closure with transmetatarsal amputation. Tolerated procedure well. Foot and postop bandage at this time. Showing clinical improvement. Stable to discharge home. Close follow-up with podiatry. Problems addressed as follows: Osteomyelitis of right foot Cellulitis -Podiatry consulted, appreciate their assistance with care. Taken for I&D on 06/19, repeat surgery 06/20 with transmetatarsal amputation and closure of wound. Treated during admission with vancomycin and cefepime. Podiatry recommends transitioning to doxycycline and Levaquin to complete 14-day antibiotic course. PT evaluated and worked with patient for gait training. He will remain nonweightbearing on his right lower extremity with posterior splint and crutches/rolling knee scooter as needed. Follow-up with Dr. Soler and podiatry in 1 week for EMILY drain removal and dressing change. White cell count showed improvement during admission. Inflammatory markers improving. Tissue culture obtained and pending. Having neuropathic type pain, was initiated on gabapentin 100 mg 3 times a day. Will continue at discharge. Also plan to resume home buprenorphine regimen along with short course of oxycodone for severe breakthrough pain. Stable for discharge home to continue outpatient treatment. History of diabetes, A1c currently controlled in the low 5 range. Will continue fingersticks ACHS and sliding scale insulin. No indication for diabetes treatment at this time. Glucose has also remained in the low to mid 100s during admission Chronic opiate dependence: Continue buprenorphine per home regimen. As he missed his Suboxone clinic visit, sent 2 extra days of medication to assist with coverage until he is able to follow the beginning of the week. Continue bupropion 150 mg daily for mood Total time spent on discharge 34 minutes in counseling, documentation, chart review, and direct care with patient. Exam Data for Last 24 hours Vital signs and Labs for Last 24 Hours: Temp Pulse Resp BP Pulse Ox O2 Del Method 97.9 F 76 16 116/72 94 L Room Air 06/22/23 04:00 06/22/23 04:00 06/22/23 04:00 06/22/23 04:00 06/22/23 04:00 06/22/23 08:02 Laboratory Results - last 24 hr 06/21/23 07:31: Total Counted 100, Neutrophils % (Manual) 79 H, Band Neutrophils % 2.0, Lymphocytes % (Manual) 13, Monocytes % (Manual) 6, Platelet Estimate Normal, Anisocytosis 1+, Macrocytosis 1+, ESR 80 H, Sodium 136, Potassium 4.8, Chloride 104, Carbon Dioxide 30, Anion Gap 6.8, BUN 14, Creatinine 0.80, Estimated Creat Clear 182, Estimated GFR 106, Est GFR ( Amer) 128, Glucose 120 H, Calcium 8.5, Magnesium 2.1, Total Bilirubin 0.2, AST 41, ALT 57, Alkaline Phosphatase 170 H, C-Reactive Protein 18.8 H D, Total Protein 6.5, Albumin 3.4 L D, Globulin 3.1, Albumin/Globulin Ratio 1.1 06/21/23 09:57: POC Glucose 147 H 06/21/23 11:43: POC Glucose 111 H 06/21/23 14:51: POC Glucose 207 H 06/21/23 15:59: Vancomycin Trough 16.7 H 06/21/23 19:55: Vancomycin Peak 44.1 H* 06/21/23 20:46: POC Glucose 223 H 06/22/23 06:45: POC Glucose 123 H I & O for Last 24 hours: Intake & Output 06/19/23 06/20/23 06/21/23 06/22/23 23:59 23:59 23:59 23:59 Intake Total 1480 / 1720 890 / 1470 580 / 580 Output Total 0 / 700 3300 / 4000 1800 / 1800 Balance 1480 / 1020 -2410 / -2530 -1220 / -1220 Weight 107.5 kg 108.3 kg 111.5 kg Microbiology Reports for the Last 24 Hours: Microbiology 06/20/23 14:45 Foot,Right - Right Side Surgical Biopsy Culture - Preliminary NO GROWTH AFTER 24 HOURS Constitutional Constitutional: no acute distress, obese, chronically ill appearing and cooperative *Routine HEENT Exam Head: Present normocephalic and atraumatic Eye: Present EOMI and PERRL ENT: Present mucous membranes moist *Routine Neck Exam Neck: Present supple *Routine Respiratory Exam Respiratory: Present CTA bilaterally; Absent rhonchi, wheezes or crackles *Routine Cardiovascular Exam Cardiovascular: Present RRR, Normal S1 and Normal S2 *Routine Rectal Exam Patient deferred: visual exam *Routine Exam Patient deferred: penile exam *Routine Extremities Exam Extremities: Absent cyanosis, clubbing or edema Comments: Right lower extremity and post op bandage. Transmetatarsal amputation. EMILY drain with scant drainage. *Routine Skin Exam Skin: Present intact; Absent cyanosis or erythema *Routine Neurological Exam Neurological: Present alert, oriented X3 and moving all extremities; Absent altered mental status Results Data Completed and Pending Labs on day of discharge: Labs from last 24 hours 06/22/23 06/21/23 06/21/23 06:45 20:46 19:55 Total Counted Neutrophils % (Manual) Band Neutrophils % Lymphocytes % (Manual) Monocytes % (Manual) Platelet Estimate Anisocytosis Macrocytosis ESR Sodium Potassium Chloride Carbon Dioxide Anion Gap BUN Creatinine Estimated Creat Clear Estimated GFR Est GFR ( Amer) Glucose POC Glucose 123 H 223 H Calcium Magnesium Total Bilirubin AST ALT Alkaline Phosphatase C-Reactive Protein Total Protein Albumin Globulin Albumin/Globulin Ratio Vancomycin Peak 44.1 H* Vancomycin Trough 06/21/23 06/21/23 06/21/23 15:59 14:51 11:43 Total Counted Neutrophils % (Manual) Band Neutrophils % Lymphocytes % (Manual) Monocytes % (Manual) Platelet Estimate Anisocytosis Macrocytosis ESR Sodium Potassium Chloride Carbon Dioxide Anion Gap BUN Creatinine Estimated Creat Clear Estimated GFR Est GFR ( Amer) Glucose POC Glucose 207 H 111 H Calcium Magnesium Total Bilirubin AST ALT Alkaline Phosphatase C-Reactive Protein Total Protein Albumin Globulin Albumin/Globulin Ratio Vancomycin Peak Vancomycin Trough 16.7 H 06/21/23 06/21/23 09:57 07:31 Total Counted 100 Neutrophils % (Manual) 79 H Band Neutrophils % 2.0 Lymphocytes % (Manual) 13 Monocytes % (Manual) 6 Platelet Estimate Normal Anisocytosis 1+ Macrocytosis 1+ ESR 80 H Sodium 136 Potassium 4.8 Chloride 104 Carbon Dioxide 30 Anion Gap 6.8 BUN 14 Creatinine 0.80 Estimated Creat Clear 182 Estimated GFR 106 Est GFR ( Amer) 128 Glucose 120 H POC Glucose 147 H Calcium 8.5 Magnesium 2.1 Total Bilirubin 0.2 AST 41 ALT 57 Alkaline Phosphatase 170 H C-Reactive Protein 18.8 H D Total Protein 6.5 Albumin 3.4 L D Globulin 3.1 Albumin/Globulin Ratio 1.1 Vancomycin Peak Vancomycin Trough Preliminary micro results at discharge 06/20/23 14:45 Surgical Biopsy Culture - Preliminary Foot,Right - Right Side NO GROWTH AFTER 24 HOURS DS: Diagnosis Discharge Diagnosis (1) Osteomyelitis of right foot: Status: Acute Code(s): M86.9 - Osteomyelitis, unspecified Qualifiers: Osteomyelitis type: other chronic Qualified Code(s): M86.671 - Other chronic osteomyelitis, right ankle and foot (2) Class 1 obesity: Status: Acute Code(s): E66.9 - Obesity, unspecified (3) Diabetic foot infection: Status: Acute Code(s): E11.628 - Type 2 diabetes mellitus with other skin complications; L08.9 - Local infection of the skin and subcutaneous tissue, unspecified (4) Gas gangrene of foot: Status: Acute Code(s): A48.0 - Gas gangrene (5) Ulcer of right foot due to type 2 diabetes mellitus: Status: Acute Code(s): E11.621 - Type 2 diabetes mellitus with foot ulcer; L97.519 - Non-pressure chronic ulcer of other part of right foot with unspecified severity Meds Home Medications and Allergies Home Medications Medication Instructions Recorded Confirmed Type bupropion HCl 150 mg 24 hr tablet, 150 mg PO DAILY Mood 06/20/23 06/20/23 History extended release buprenorphine 8 mg-naloxone 2 mg 2 each SL DAILY WITHDRAWAL 2 days 06/22/23 Rx sublingual film #4 ea doxycycline hyclate 100 mg capsule 100 mg PO BID 11 days #22 caps 06/22/23 Rx gabapentin 100 mg capsule 100 mg PO TID 14 days #42 caps 06/22/23 Rx levofloxacin 750 mg tablet 750 mg PO DAILY 11 days #11 tabs 06/22/23 Rx oxycodone-acetaminophen 10 mg-325 1 tab PO Q6H PRN pain 3 days #12 06/22/23 Rx mg tablet tabs New Prescriptions to Start Prescriptions: buprenorphine-naloxone Andrei Davis doxycycline hyclate Ryan,Andrei gabapentin Andrei Davis levofloxacin Ryan,Andrei oxycodone-acetaminophen Andrei Davis Allergies Allergy/AdvReac Type Severity Reaction Status Date / Time Penicillins [PENICILLINS] Allergy Intermediate Rash Verified 07/10/22 21:24 morphine AdvReac Severe hallucinati Verified 07/10/22 21:24 ons Discharge Plan Disposition Patient Disposition: Home, Self-Care Condition: Fair Discharge Order Discharge Orders: Discharge Order (Routine); Ordered 06/22/23 Ordered By: Andrei Davis Follow up Plan Follow up with: Nadeem Arshad [Referring] - 06/28/23 9:30 am (please arrive 30 minutes prior for paperwork) Pati Chandler DPM [Staff Physician] - 06/25/23 2:45 pm Prescriptions/Medication Reconciliation: New gabapentin 100 mg Capsule 100 mg PO TID 14 Days Qty: 42 0RF oxycodone-acetaminophen 10-325 mg tablet 1 tab PO Q6H PRN (Reason: pain) 3 Days Qty: 12 0RF levofloxacin 750 mg tablet 750 mg PO DAILY 11 Days Qty: 11 0RF doxycycline hyclate 100 mg capsule 100 mg PO BID 11 Days Qty: 22 0RF Continued bupropion HCl 150 mg tablet extended release 24 hr 150 mg PO DAILY Patient Comments: Take 1 tablet by mouth once a day buprenorphine-naloxone 1 EACH film 2 each SL DAILY 2 Days Qty: 4 0RF Problem Reconciliation Problems Reviewed?: Yes Patient Discharge Instructions ACTIVITY: Limited activity DIET: continue same diet Additional Instructions: Non-Weight bearing on right foot. Patient Instructions: Cellulitis, DI for Diabetic Foot Ulcer, DI for Surgical Site Infection Providers Primary Care Provider: Reagan Arshad Admit Provider: Andrei Davis Attending Provider: Andrei Davis
--- NOTE | 2023-06-22 08:29 | P.CONPHA_ITS ---
Pharmacy Consult Date: 06/22/23 Time: 08:29 Referring provider: DR. FIELDS Reason for Consult:: VANCOMYCIN DOSING Allergies Allergy/AdvReac Type Severity Reaction Status Date / Time Penicillins [PENICILLINS] Allergy Intermediate Rash Verified 07/10/22 21:24 morphine AdvReac Severe hallucinati Verified 07/10/22 21:24 ons Home Medications Medication Instructions Recorded Confirmed Type buprenorphine 8 mg-naloxone 2 mg 2 each SL DAILY WITHDRAWAL 02/08/21 06/20/23 History sublingual film bupropion HCl 150 mg 24 hr tablet, 150 mg PO DAILY Mood 06/20/23 06/20/23 Histor y extended release New Prescriptions to Start Prescriptions: Height: 1.8 m Weight: 111.5 kg Laboratory Results:: Laboratory Results - last 24 hr 06/21/23 07:31: Total Counted 100, Neutrophils % (Manual) 79 H, Band Neutrophils % 2.0, Lymphocytes % (Manual) 13, Monocytes % (Manual) 6, Platelet Estimate Normal, Anisocytosis 1+, Macrocytosis 1+, Sodium 136, Potassium 4.8, Chloride 104, Carbon Dioxide 30, Anion Gap 6.8, BUN 14, Creatinine 0.80, Estimated Creat Clear 182, Estimated GFR 106, Est GFR ( Amer) 128, Glucose 120 H, Calcium 8.5, Magnesium 2.1, Total Bilirubin 0.2, AST 41, ALT 57, Alkaline Phosphatase 170 H, C-Reactive Protein 18.8 H D, Total Protein 6.5, Albumin 3.4 L D, Globulin 3.1, Albumin/Globulin Ratio 1.1 06/21/23 09:57: POC Glucose 147 H 06/21/23 11:43: POC Glucose 111 H 06/21/23 14:51: POC Glucose 207 H 06/21/23 15:59: Vancomycin Trough 16.7 H 06/21/23 19:55: Vancomycin Peak 44.1 H* 06/21/23 20:46: POC Glucose 223 H 06/22/23 06:45: POC Glucose 123 H Medical History: Medical History (Updated 06/20/23 @ 15:37 by Pati Chandler DPM) Congenital absence of one kidney Diabetes mellitus, type 2 Right great toe amputee Assessment and Plan Assessment and plan all Dx Assessment and Plan for all problems:: Patient's vancomcyin peak and trough were 44.1 mcg/mL and 16.7 mcg/mL, respectively. Trough level was drawn 1 hr late and dose was started 1 hr late. Recommend changing dose to vancomycin 1500 mg q8h at this time. Will retime next dose at 2100 tonight as patient has already received dose this am.
[2023-06-22 08:53] LABS: Basophils # 0.1 K/mm3 (0-0.2); Basophils % 0.6 % (0.1-2.0); Eosinophils % 0.3 % (0.1-12.0); Hematocrit 33.5 % (42.0-52.0); Hemoglobin 10.7 g/dL (14.1-18.0); Lymphocytes % 24.7 % (10-50); Mean Corpuscular HGB Conc 31.9 g/dL (31.8-35.4); Mean Corpuscular Hemoglobin 30.6 pg (27.0-31.2); Mean Corpuscular Volume 95.9 fl (80-94); Mean Platelet Volume 8.7 fl (7.4-10.4); Monocytes # 0.7 K/mm3 (0.1-1.0); Monocytes % 5.3 % (1.7-9.3); Neutrophils # 8.5 K/mm3 (1.8-7.8); Neutrophils % 69.1 % (37.0-80.0); Platelet Count 402 K/mm3 (142-424); Red Blood Count 3.49 M/mm3 (4.60-6.20); Red Cell Distribution Width 14.7 % (11.5-17.5); White Blood Count 12.3 K/mm3 (4.8-10.8)
[2023-06-22 08:59] LABS: Chloride 105 mmol/L (98-107); Potassium 4.1 mmoL/L (3.5-5.1); Sodium 139 mmol/L (136-145)
[2023-06-22 09:01] LABS: Blood Urea Nitrogen 14 mg/dl (9-20); Creatinine Clearance Estimated 188 mL/min (50-200); Estimated Glomerular Filt Rate 106 ml/min (>60); GFR (African American) 128 ML/MIN (>60)
[2023-06-22 09:02] LABS: Alanine Aminotransferase 48 U/L (12-78); Albumin Level 3.2 g/dl (3.5-5.0); Albumin/Globulin Ratio 1.1 (1.1-1.8); Alkaline Phosphatase 151 U/L (38-126); Anion Gap 6.1 mEq/L (5-15); Aspartate Amino Transferase 32 U/L (17-59); Bilirubin,Total 0.1 mg/dl (0.2-1.3); Calcium 8.2 mg/dl (8.4-10.2); Carbon Dioxide 32 mmol/L (22.0-30.0); Globulin 2.9 g/dL (1.3-3.2); Glucose 134 mg/dl (74-100); Total Protein,Serum 6.1 g/dl (6.3-8.2)
[2023-06-22 09:08] LABS: C-Reactive Protein 6.5 mg/L (0-4)
[2023-06-22 10:50] LABS: POC Glucose,Bedside 144 (70-110)
--- NOTE | 2023-06-22 13:34 | P.PNANES_ITS ---
[facility] Anesthesia Record Part II Anesthesia Record Part II Discharge Time: 15:15 Destination: Medical Surgical Department PACU nurse assessment reviewed?: Yes Patient Condition:: Good Anesthesia Complications:: None Swallowing reflex intact?: Yes Airway Patency: Patent Cyanosis?: No Blood Pressure: 142/88 SaO2: 93 Respiratory Rate: 16 Pulse Rate: 72 Temperature: 98 F Mental Status: Alert & Oriented Pain level:: 0 Nausea and/or vomitting:: None Intake, IV Amount: 0 Hydration: Adequate
[2023-06-22 13:35] VITALS: BP 142/88; PULSE 72; RESP 16; TEMP 36.6; O2SAT 93
--- NOTE | 2023-06-26 15:34 | CARE MANAGER ---
Called and spoke to patient regarding recent discharge. Patient stated that he has started new medication. Patient was aware of scheduled f/u appts and had no questions/concerns at time of call.
== END 2023-06-22 12:34 | disposition home or self-care (01) | DRG 616 ==
LOC: ER 11:02 → 2ND 11:36
PROVIDERS: Podiatrist; Admitting Provider Internal Medicine Adolescent Medicine; Emergency Provider Emergency Medicine; PCP Internal Medicine; Visit Provider Internal Medicine Adolescent Medicine
PROC: 0Y6M0Z0 Detachment at Right Foot, Complete, Open Approach (ICD-10-PCS; principal; 2023-06-20 14:00)
PROC: 0LBV0ZZ Excision of Right Foot Tendon, Open Approach (ICD-10-PCS; principal; 2023-06-21 12:15)
DX: E11.69 Type 2 diabetes mellitus with other specified complication (principal); A48.0 Gas gangrene; E11.52 Type 2 diabetes mellitus with diabetic peripheral angiopathy with gangrene; L03.115 Cellulitis of right lower limb; M86.671 Other chronic osteomyelitis, right ankle and foot; F11.20 Opioid dependence, uncomplicated; M86.9 Osteomyelitis, unspecified; M84.474A Pathological fracture, right foot, initial encounter for fracture; E11.628 Type 2 diabetes mellitus with other skin complications; L08.9 Local infection of the skin and subcutaneous tissue, unspecified; E11.621 Type 2 diabetes mellitus with foot ulcer; L97.519 Non-pressure chronic ulcer of other part of right foot with unspecified severity; I10 Essential (primary) hypertension; E78.5 Hyperlipidemia, unspecified; Z89.411 Acquired absence of right great toe; F17.210 Nicotine dependence, cigarettes, uncomplicated; E66.9 Obesity, unspecified; Z68.34 Body mass index [BMI] 34.0-34.9, adult
CPT/HCPCS: 11043 ×2; 28805; 28008; 36415; 73630; 73701; 80053; 80061; 80202; 82962; 83036; 83605; 83735; 85007; 85025; 85651; 86140; 87040; 87070; 87075; 87205; 88304; 88305; 88307; 88311; 96374; 97163; 99291; J0574; J2405; J3370; Q9967

== ENCOUNTER 2023-07-05 14:05 | Outpatient (CLI) | payer OTHER, SELFPAY ==
--- NOTE | 2023-07-05 14:08 | XR_ITS ---
FINAL REPORT CLINICAL HISTORY: Postoperative injury COMPARISON: None FINDINGS: RIGHT FOOT: Three views of the right foot were obtained. 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 There is no acute fracture or dislocation. The joint spaces are intact. There is no soft tissue abnormality. IMPRESSION: Postoperative changes without acute bony abnormality. Reviewed, Interpreted and Dictated by Sravan Madison III, MD Transcribed by Monica Adams Authenticated and . [facility]
[2023-07-05 14:47] LABS: Basophils # 0.1 K/mm3 (0-0.2); Eosinophils # 0.5 K/mm3 (0.0-0.4); Eosinophils % 4.2 % (0.1-12.0); Hematocrit 39.2 % (42.0-52.0); Hemoglobin 12.3 g/dL (14.1-18.0); Lymphocytes # 3.1 K/mm3 (0.7-4.5); Lymphocytes % 25.5 % (10-50); Mean Corpuscular HGB Conc 31.3 g/dL (31.8-35.4); Mean Corpuscular Hemoglobin 29.7 pg (27.0-31.2); Mean Corpuscular Volume 94.9 fl (80-94); Mean Platelet Volume 7.8 fl (7.4-10.4); Monocytes # 0.9 K/mm3 (0.1-1.0); Monocytes % 7.2 % (1.7-9.3); Neutrophils # 7.5 K/mm3 (1.8-7.8); Neutrophils % 62.1 % (37.0-80.0); Platelet Count 392 K/mm3 (142-424); Red Blood Count 4.14 M/mm3 (4.60-6.20); Red Cell Distribution Width 14.1 % (11.5-17.5); White Blood Count 12.1 K/mm3 (4.8-10.8)
[2023-07-05 15:16] LABS: Alanine Aminotransferase 21 U/L (12-78); Albumin Level 4.1 g/dl (3.5-5.0); Albumin/Globulin Ratio 1.3 (1.1-1.8); Alkaline Phosphatase 125 U/L (38-126); Anion Gap 8.3 mEq/L (5-15); Aspartate Amino Transferase 27 U/L (17-59); Bilirubin,Total 0.6 mg/dl (0.2-1.3); Blood Urea Nitrogen 13 mg/dl (9-20); Calcium 9.7 mg/dl (8.4-10.2); Carbon Dioxide 31 mmol/L (22.0-30.0); Chloride 104 mmol/L (98-107); Estimated Glomerular Filt Rate 106 ml/min (>60); GFR (African American) 128 ML/MIN (>60); Globulin 3.1 g/dL (1.3-3.2); Glucose 99 mg/dl (74-100); Potassium 4.3 mmoL/L (3.5-5.1); Sodium 139 mmol/L (136-145); Total Protein,Serum 7.2 g/dl (6.3-8.2)
[2023-07-05 15:21] LABS: C-Reactive Protein 11.1 mg/L (0-4)
[2023-07-05 16:02] LABS: Erythrocyte Sedimentation Rate 75 mm/hr (0-15)
== END 2023-07-05 23:59 ==
LOC: LAB 14:05
PROVIDERS: PCP Internal Medicine; Visit Provider Podiatrist
DX: M79.671 Pain in right foot (principal); Z98.890 Other specified postprocedural states
CPT/HCPCS: 36415; 73630; 80053; 85025; 85651; 86140

== ENCOUNTER 2023-08-14 18:00 | Outpatient (CLI) | payer OTHER, SELFPAY ==
[2023-08-14 09:51] LABS: Basophils # 0.1 K/mm3 (0-0.2); Basophils % 1.2 % (0.1-2.0); Eosinophils # 0.2 K/mm3 (0.0-0.4); Eosinophils % 1.8 % (0.1-12.0); Hematocrit 44.1 % (42.0-52.0); Hemoglobin 14.5 g/dL (14.1-18.0); Lymphocytes # 3.2 K/mm3 (0.7-4.5); Mean Corpuscular HGB Conc 32.8 g/dL (31.8-35.4); Mean Corpuscular Hemoglobin 28.9 pg (27.0-31.2); Mean Platelet Volume 7.7 fl (7.4-10.4); Monocytes # 0.7 K/mm3 (0.1-1.0); Monocytes % 5.5 % (1.7-9.3); Neutrophils # 7.7 K/mm3 (1.8-7.8); Neutrophils % 64.4 % (37.0-80.0); Platelet Count 354 K/mm3 (142-424); Red Blood Count 5.01 M/mm3 (4.60-6.20); Red Cell Distribution Width 14.7 % (11.5-17.5); White Blood Count 11.9 K/mm3 (4.8-10.8)
[2023-08-14 10:22] LABS: Hemoglobin A1C 5.7 % (4.0-6.0)
[2023-08-14 10:59] LABS: Chloride 104 mmol/L (98-107)
[2023-08-14 11:00] LABS: Potassium 4.5 mmoL/L (3.5-5.1); Sodium 138 mmol/L (136-145)
[2023-08-14 11:02] LABS: Alanine Aminotransferase 21 U/L (12-78); Albumin Level 4.3 g/dl (3.5-5.0); Albumin/Globulin Ratio 1.3 (1.1-1.8); Alkaline Phosphatase 108 U/L (38-126); Anion Gap 14.5 mEq/L (5-15); Aspartate Amino Transferase 23 U/L (17-59); Bilirubin,Total 0.6 mg/dl (0.2-1.3); Blood Urea Nitrogen 10 mg/dl (9-20); Carbon Dioxide 24 mmol/L (22.0-30.0); Estimated Glomerular Filt Rate 123 ml/min (>60); GFR (African American) 149 ML/MIN (>60); Globulin 3.4 g/dL (1.3-3.2); Total Protein,Serum 7.7 g/dl (6.3-8.2)
[2023-08-14 11:03] LABS: Calcium 9.9 mg/dl (8.4-10.2); Glucose 116 mg/dl (74-100)
[2023-08-14 11:08] LABS: C-Reactive Protein 1.2 mg/L (0-4)
[2023-08-14 12:20] LABS: Erythrocyte Sedimentation Rate 53 mm/hr (0-15)
== END 2023-08-14 23:59 | disposition home or self-care (01) ==
LOC: LAB.DROPOF 08-15 09:11
PROVIDERS: PCP Podiatrist; Visit Provider Podiatrist
DX: L03.115 Cellulitis of right lower limb (principal); T81.31XD Disruption of external operation (surgical) wound, not elsewhere classified, subsequent encounter; E11.628 Type 2 diabetes mellitus with other skin complications; B95.2 Enterococcus as the cause of diseases classified elsewhere; B95.7 Other staphylococcus as the cause of diseases classified elsewhere; B96.5 Pseudomonas (aeruginosa) (mallei) (pseudomallei) as the cause of diseases classified elsewhere; B96.89 Other specified bacterial agents as the cause of diseases classified elsewhere; Z51.89 Encounter for other specified aftercare
CPT/HCPCS: 73630; 80053; 83036; 85025; 85651; 86140; 87070; 87077; 87081; 87186; 87205